=== PATIENT | female | born 1950 | race Caucasian/White ===

== ENCOUNTER 2020-07-04 11:07 | Outpatient (REF) | payer MEDICARE, MEDICAID, SELFPAY ==
--- NOTE | 2020-07-04 11:10 | CT_ITS ---
EXAMINATION: CT CHEST WITHOUT CONTRAST CLINICAL INFORMATION: Follow-up pulmonary nodule COMPARISON: Previous chest CT April 2019 TECHNIQUE: Multidetector volumetric CT imaging of the chest was done. Axial MIP volume rendering provided. Sagittal and coronal reformatted images were obtained. This CT examination was performed using dose optimization techniques as appropriate, variously including the following: *Automated exposure control *Adjustment of mA and/or kV according to patient size (this includes techniques or standardized protocols for targeted exams where dose is matched to indication/reason for exam; i.e. extremities or head) *Use of iterative reconstruction technique DLP: 178 mGy-cm FINDINGS: LUNGS: There is new large masslike area of dense consolidation with air bronchograms seen in the superior segment of the right upper lobe. This abuts the major fissure and there is slight retraction of the fissure. Difficult to measure due to irregular shape and measures approximately 5 x 3 x 4 cm. There is surrounding groundglass attenuation and semisolid pulmonary nodules. This is new from previous exam April 2019. Given rapid appearance, an infectious or inflammatory process over neoplastic process is favored. There is evidence of emphysema. There are areas of increased peribronchial attenuation is suggestive of airways disease. There is mild focal bronchiectasis seen in the right middle and bilateral lower lobes. There are diffuse scattered areas of increased groundglass attenuation and peribronchial attenuation. There are several solid pulmonary nodules that are stable. There is a 2 mm right apical nodule axial image 81 series 4 that is stable. There is a 6 mm peripheral right lower lobe nodule axial image 280 series 4 that is stable. There is a peripheral 3 mm solid left lower lobe nodule axial image 3:15 series 4 that is stable. MEDIASTINUM: The heart does not appear enlarged. There is moderate coronary artery calcification. There is no pericardial effusion. There are no enlarged hilar or mediastinal lymph nodes. The thoracic aorta is heavily calcified.. PLEURA: There is no pleural effusion. No pleural mass or thickening. AXILLA: No lymphadenopathy. UPPER ABDOMEN: There is low-attenuation seen in the gallbladder questionable for cholesterol gallstones. There is evidence of atherosclerotic disease of the aorta. OSSEOUS STRUCTURES: There are degenerative changes of the spine. CT/CT chest wo con IMPRESSION: New large area of masslike density consolidation with air bronchograms, surrounding groundglass attenuation and smaller satellite nodular opacities in the right lower lobe. Innumerable scattered areas of focal bronchiectasis, some bronchial wall thickening and surrounding groundglass attenuation throughout the lungs. Infectious, inflammatory and neoplastic processes should be considered. Given associated bronchiolectasis, BOOP or organizing cryptogenic pneumonia in particular should be considered. Several small stable solid pulmonary nodules from 2019, largest measuring 6 mm in the right lower lobe. Severe atherosclerotic disease and coronary artery calcification. Probable gallstones.
== END 2020-07-04 11:08 | disposition home or self-care (01) ==
LOC: HO.CT 11:07
PROVIDERS: PCP Internal Medicine; Visit Provider Hospitalist
DX: R91.1 Solitary pulmonary nodule (principal)
CPT/HCPCS: 71250

== ENCOUNTER 2020-07-05 09:58 | Outpatient (REF) | payer MEDICARE, MEDICAID, SELFPAY ==
[2020-07-05 11:51] LABS: MANUAL DIFF FLAG NO
[2020-07-05 11:58] LABS: Basophils Absolute Auto 0.1 X10*3/uL (0.0-0.2); Basophils Percent Auto 0.4 % (0-2); Eosinophils Absolute Auto 0.6 X10*3/uL (0.0-0.4); Hematocrit 39.4 % (37-47); Hemoglobin 12.2 g/dl (12.0-16.0); Imm Gran Abs Auto 0.14 X10*3/uL (0.00-0.03); Imm Gran Pct Auto 1.2 % (0.0-0.4); Lymphocytes Absolute Auto 2.4 X10*3/uL (1.2-4.9); Lymphocytes Percent Auto 21.1 % (20-40); Mean Corpuscular Hemoglobin 28.8 pg (27.0-33.0); Mean Corpuscular Volume 93.1 fL (80-98); Mean Platelet Volume 9.2 fL (9.4-12.3); Monocytes Absolute Auto 1.2 X10*3/uL (0.1-1.2); Monocytes Percent Auto 10.6 % (2-11); Neutrophils Percent Auto 61.7 % (45-73); Platelet Count 284 X10*3/uL (160-400); Red Blood Count 4.23 X10*6/uL (4.20-5.50); Red Cell Distribution Width 13.9 % (11.0-16.0); White Blood Count 11.3 X10*3/uL (4.8-10.8)
[2020-07-05 13:20] LABS: Erythrocyte Sedimentation Rate 40 MM/HR (0-20)
[2020-07-05 13:38] LABS: SARS COV2 IgG Negative (Negative)
[2020-07-06 21:22] LABS: Anti Nuclear Antibody Screen POSITIVE (NEGATIVE)
[2020-07-06 22:53] LABS: Cyclic Citrullinated Peptide <16 UNITS
[2020-07-08 11:27] LABS: Immunoglobulin G Subclass 1 327 mg/dL (382-929); Immunoglobulin G Subclass 2 230 mg/dL (241-700); Immunoglobulin G Subclass 3 70 mg/dL (22-178); Immunoglobulin G Subclass 4 6.7 mg/dL (4-86); Immunoglobulin G Total 626 mg/dL (600-1540)
== END 2020-07-05 09:59 | disposition home or self-care (01) ==
LOC: HO.LAB 09:58
PROVIDERS: PCP Internal Medicine; Visit Provider Hospitalist
DX: F51.01 Primary insomnia (principal); J96.11 Chronic respiratory failure with hypoxia; J18.9 Pneumonia, unspecified organism; J44.9 Chronic obstructive pulmonary disease, unspecified; R91.8 Other nonspecific abnormal finding of lung field; G47.00 Insomnia, unspecified; J43.2 Centrilobular emphysema; Z79.899 Other long term (current) drug therapy; Z87.891 Personal history of nicotine dependence; Z99.81 Dependence on supplemental oxygen; Z20.822 Contact with and (suspected) exposure to COVID-19
CPT/HCPCS: 36415; 82784; 85025; 85652; 86038; 86039; 86200; 86769; 99212

== ENCOUNTER 2020-07-05 21:39 | Emergency (ER) | payer MEDICARE, MEDICAID, SELFPAY ==
[2020-07-05 21:48] VITALS: BP 158/76; PULSE 88; RESP 18; TEMP 36.8; O2SAT 97; BMI 29.6
[2020-07-05 22:00] VITALS: RESP 18
--- NOTE | 2020-07-05 22:20 | ED_ITS ---
HPI - General Adult General Chief complaint: General Medical Stated complaint: flank pain Time Seen by Provider: 07/05/20 22:01 Source: patient Mode of arrival: ambulatory Limitations: no limitations History of Present Illness HPI narrative: Patient presents to ED for right flank pain radiating down to right groin with dysuria and hematuria which began around 18:30 tonight. Patient states no fever, chills, any recent trauma to her abdomen or flank area. Related Data Home Medications Medication Instructions Recorded Confirmed albuterol sulfate 90 mcg/actuation 2 puff INHALATION Q6H PRN 04/26/20 07/05/20 aerosol inhaler albuterol sulfate 90 mcg/actuation INHALATION 04/26/20 07/05/20 aerosol inhaler atorvastatin 40 mg tablet 40 mg PO DAILY 04/26/20 07/05/20 bisoprolol fumarate 5 mg tablet 5 mg PO DAILY 04/26/20 07/05/20 cholecalciferol (vitamin D3) 25 25 mcg PO DAILY 04/26/20 07/05/20 mcg (1,000 unit) capsule fluticasone propionate 230 INHALATION 04/26/20 07/05/20 mcg-salmeterol 21 mcg/actuation HFA inhaler fluticasone propionate 50 2 spray INTRANASAL DAILY 04/26/20 07/05/20 mcg/actuation nasal spray,suspension lisinopril 40 mg tablet 40 mg PO DAILY 04/26/20 07/05/20 multivitamin 1 tab PO DAILY 04/26/20 07/05/20 zolpidem 10 mg tablet 10 mg PO BEDTIME PRN 04/26/20 07/05/20 Previous Rx's Medication Instructions Recorded tiotropium bromide 18 mcg capsule 1 cap INHALATION DAILY #30 inh 04/13/20 with inhalation device tiotropium bromide 2.5 2 puff INHALATION DAILY 30 Days #4 05/09/20 mcg/actuation mist for inhalation g cefpodoxime 200 mg PO Q12H #20 tab 07/06/20 ketorolac 10 mg PO TID 5 Days #15 tab 07/06/20 tamsulosin [Flomax] 0.4 mg PO DAILY #14 cap 07/06/20 Allergies Allergy/AdvReac Type Severity Reaction Status Date / Time morphine [MORPHINE] Allergy Severe DIFFICULTY Verified 07/05/20 21:52 BREATHING Review of Systems Review of Systems: Yes all other systems are reviewed and are negative Constitutional: Constitutional: Reports as per HPI and Reports no additional constitutional complaints Eyes: Eyes: Reports as per HPI and Reports no additional eye complaints ENT: Reports system reviewed and no additional complaints, except as documented and Reports as per HPI Cardiovascular: Cardiovascular: Reports as per HPI and Reports no additional cardiovascular complaints Respiratory: Respiratory: Reports as per HPI and Reports no additional respiratory complaints Gastrointestinal: Gastrointestinal: Reports as per HPI, Reports no additional gastrointestinal complaints, Reports abdominal pain and Reports nausea Genitourinary: Genitourinary: Reports no additional female genitourinary complaints, Reports as per HPI, Reports hematuria and Reports dysuria Musculoskeletal: Musculoskeletal: Reports no additional musculoskeletal complaints and Reports as per HPI Neurologic: Reports system reviewed and no additional complaints, except as documented and Reports as per HPI Psychiatric: Psychiatric: Reports no additional psychiatric complaints and Reports as per HPI [facility] Past Medical History Medical History (Updated 07/06/20 @ 01:21 by BARRON Gunn) CAD (coronary artery disease) Centrilobular emphysema Chronic respiratory failure Insomnia Lung mass Pneumonia Pulmonary nodules TIA (transient ischemic attack) Family History Family History (Updated 07/05/20 @ 21:54 by Villa Booker MD) Other HTN (hypertension) Social History Social History (Updated 04/26/20 @ 11:12 by Stephie Squires MA) Alcohol intake: never Smoking Status: Never smoker Tobacco Type: Cigarette Years Smoked: 30 years Smoked in Last 30 Days: No Use of substances other than those prescribed or required for medical reasons: No Advance Directives: No Physical Exam Vital Signs: Vital Signs: Last Vital Signs Temp 97.1 F 07/06/20 01:08 Pulse 82 07/06/20 01:08 Resp 20 07/06/20 01:08 BP 126/75 07/06/20 01:08 Pulse Ox 95 07/06/20 01:08 Body Mass Index 29.6 Const: General: cooperative, healthy appearing, comfortable, no acute dis tress, well developed, alert and awake Orientation/consciousness: patient oriented x3 HENMT: Head: Yes normal to inspection, Yes No palpable skull fracture present, Yes normocephalic, Yes atraumatic and No abrasion Eyes: General: appearance normal, both eyes and all related structures Neck: Neck: Yes normal visual inspection, Yes full ROM, Yes no lymphadenopathy, Yes no meningeal signs, Yes trachea midline, Yes supple and No tender Chest: Chest palpation & inspection: normal inspection of the chest and normal palpation of entire chest wall Resp: Effort & Inspection: normal respiratory effort and able to speak in complete sentences Auscultation: clear to auscultation bilaterally Cardio: Jugular venous distension: no JVD Heart sounds: S1 normal heart sound present and S2 normal heart sound present GI: Inspection: Yes normal to inspection and No abdominal wall ecchymosis Palpation (GI): Soft to palpation, not firm, Tenderness to palpation present (GI) in the RLQ and suprapubicly, no guarding and not rigid : General: Yes CVA tenderness (Right flank) Back/Spine/Pelvis: Back: CVA tenderness (Right flank) Skin: General skin exam: no rashes or lesions noted and elasticity normal Neuro: General: patient oriented x3, no meningeal signs and CN's II-XI intact bilaterally Cranial nerves: Yes CN's II-XII intact bilaterally Extrem: General: Yes normal to inspection and Yes full ROM Psych: Appearance: grossly normal, well kempt and not disheveled Course Course Course Narrative: History physical exam indicate kidney stones. Will draw labs and send patient for abdominal CT scan. Reevaluation(s) Reevaluation #1: Patient given fluids. Abdominal CT scan shows kidney stone 3 mm on UVJ. Urine shows UTI. Kidney function normal. Patient given Flomax and Toradol. Patient informed to follow-up with urology. Time: 01:18 Medical Decision Making MDM Narrative Medical decision making narrative: Kidney stones Lab Data Result diagrams: 07/06/20 00:24 07/06/20 00:23 Labs: Lab Results 07/05/20 07/06/20 07/06/20 Range/Units 22:45 00:23 00:23 WBC (4.8-10.8) X10*3/uL RBC (4.20-5.50) X10*6/uL Hgb (12.0-16.0) g/dl Hct (37-47) % MCV (80-98) fL MCH (27.0-33.0) pg MCHC (31.0-35.0) g/dl RDW (11.0-16.0) % Plt Count (160-400) X10*3/uL MPV (9.4-12.3) fL Immature Gran % (Auto) (0.0-0.4) % Neut % (Auto) (45-73) % Lymph % (Auto) (20-40) % [place] % (Auto) (2-11) % Eos % (Auto) (0-4) % Baso % (Auto) (0-2) % Lymph # (Auto) (1.2-4.9) X10*3/uL [place] # (Auto) (0.1-1.2) X10*3/uL Eos # (Auto) (0.0-0.4) X10*3/uL Baso # (Auto) (0.0-0.2) X10*3/uL Abs Immat Gran (auto) (0.00-0.03) X10*3/uL Absolute Neuts (auto) (2.0-8.3) X10*3/uL Absolute Nucleated RBC (0.0-0.012) X10*3/uL Nucleated RBC % (auto) (0.0-0.2) /100WBC PT 13.4 H (10.8-13.0) SEC INR 1.1 (0.9-1.1) APTT 32.3 (24.1-38.0) SEC Sodium 140 (135-145) mmol/L Potassium 4.6 (3.3-5.1) mmol/l Chloride 101 (96-108) mmol/L Carbon Dioxide 30 H (22-29) mmol/L Anion Gap 14 (12-20) BUN 23 H (9-16) mg/dL Creatinine 0.76 (0.5-1.4) mg/dL Estim Creat Clear Calc 72.7 Estimated GFR > 60 Random Glucose 158 H (60-115) mg/dL Calcium 8.7 (8.4-10.2) mg/dL Total Bilirubin 0.3 (0.0-1.0) mg/dL Direct Bilirubin < 0.2 (0.0-0.5) mg/dL AST 5 (5-31) U/L ALT 12 (0-31) U/L Alkaline Phosphatase 88 (39-117) U/L Total Protein 6.2 L (6.5-8.0) g/dL Albumin 3.8 (3.5-5.0) g/dL Lipase 13 (8-78) U/L Urine Color EVELYN Urine Appearance TURBID Urine pH 6.5 (5.0-8.0) Ur Specific [place] >= 1.030 H (1.005-1.025) Urine Protein 3+ H (NEG-TRACE) MG/DL Urine Glucose (UA) 100 H (NEG) MG/DL Urine Ketones 15 (NEG) MG/DL Urine Blood 3+ H (NEG) Urine Nitrite POS H (NEG) Ur Leukocyte Esterase TRACE H (NEG) Urine RBC TNTC H (0) /HPF Urine WBC 0 (0-4) /HPF Ur Squamous Epith Cells NONE /LPF Calcium Oxalate Crystal 1+ /LPF Urine Bacteria 3+ /LPF 07/06/20 Range/Units 00:24 WBC 12.3 H (4.8-10.8) X10*3/uL RBC 4.12 L (4.20-5.50) X10*6/uL Hgb 11.9 L (12.0-16.0) g/dl Hct 38.4 (37-47) % MCV 93.2 (80-98) fL MCH 28.9 (27.0-33.0) pg MCHC 31.0 (31.0-35.0) g/dl RDW 13.8 (11.0-16.0) % Plt Count 257 (160-400) X10*3/uL MPV 9.1 L (9.4-12.3) fL Immature Gran % (Auto) 0.6 H (0.0-0.4) % Neut % (Auto) 73.6 H (45-73) % Lymph % (Auto) 14.3 L (20-40) % [place] % (Auto) 9.1 (2-11) % Eos % (Auto) 2.1 (0-4) % Baso % (Auto) 0.3 (0-2) % Lymph # (Auto) 1.8 (1.2-4.9) X10*3/uL [place] # (Auto) 1.1 (0.1-1.2) X10*3/uL Eos # (Auto) 0.3 (0.0-0.4) X10*3/uL Baso # (Auto) 0.0 (0.0-0.2) X10*3/uL Abs Immat Gran (auto) 0.08 H (0.00-0.03) X10*3/uL Absolute Neuts (auto) 9.1 H (2.0-8.3) X10*3/uL Absolute Nucleated RBC 0.000 (0.0-0.012) X10*3/uL Nucleated RBC % (auto) 0.0 (0.0-0.2) /100WBC PT (10.8-13.0) SEC INR (0.9-1.1) APTT (24.1-38.0) SEC Sodium (135-145) mmol/L Potassium (3.3-5.1) mmol/l Chloride (96-108) mmol/L Carbon Dioxide (22-29) mmol/L Anion Gap (12-20) BUN (9-16) mg/dL Creatinine (0.5-1.4) mg/dL Estim Creat Clear Calc Estimated GFR Random Glucose (60-115) mg/dL Calcium (8.4-10.2) mg/dL Total Bilirubin (0.0-1.0) mg/dL Direct Bilirubin (0.0-0.5) mg/dL AST (5-31) U/L ALT (0-31) U/L Alkaline Phosphatase (39-117) U/L Total Protein (6.5-8.0) g/dL Albumin (3.5-5.0) g/dL Lipase (8-78) U/L Urine Color Urine Appearance Urine pH (5.0-8.0) Ur Specific [place] (1.005-1.025) Urine Protein (NEG-TRACE) MG/DL Urine Glucose (UA) (NEG) MG/DL Urine Ketones (NEG) MG/DL Urine Blood (NEG) Urine Nitrite (NEG) Ur Leukocyte Esterase (NEG) Urine RBC (0) /HPF Urine WBC (0-4) /HPF Ur Squamous Epith Cells /LPF Calcium Oxalate Crystal /LPF Urine Bacteria /LPF Discharge Plan Discharge Clinical Impression: Ureteral calculi Patient Disposition: Home, Self-Care Instructions: Ureteral Stones (ED) Additional Instructions: Return to the ED immediately for worsening abdominal pain, fever, chills, inability tolerate solid food/liquid, or any other concerning symptoms. Prescriptions: New tamsulosin [Flomax] 0.4 mg capsule 0.4 mg PO DAILY Qty: 14 RF: 0 cefpodoxime 200 mg tablet 200 mg PO Q12H Qty: 20 RF: 0 ketorolac 10 mg tablet 10 mg PO TID 5 Days Qty: 15 RF: 0 No Action Spiriva with HandiHaler 18 mcg capsule, w/inhalation device 1 cap inhalation DAILY Qty: 30 RF: 3 Spiriva Respimat 2.5 mcg/actuation mist 2 puff inhalation DAILY 30 Days Qty: 4 RF: 11 albuterol sulfate 90 mcg/actuation HFA aerosol inhaler inhalation RF: 0 lisinopril 40 mg tablet 40 mg PO DAILY RF: 0 Advair HFA 230-21 mcg/actuation HFA aerosol inhaler inhalation RF: 0 bisoprolol fumarate 5 mg tablet 5 mg PO DAILY RF: 0 zolpidem 10 mg tablet 10 mg PO BEDTIME PRNRF: 0 atorvastatin 40 mg tablet 40 mg PO DAILY RF: 0 fluticasone propionate 50 mcg/actuation spray,suspension 2 spray intranasal DAILY RF: 0 albuterol sulfate [Ventolin HFA] 90 mcg/actuation HFA aerosol inhaler 2 puff inhalation Q6H PRNRF: 0 cholecalciferol (vitamin D3) 25 mcg (1,000 unit) capsule 25 mcg PO DAILY RF: 0 multivitamin Tablet 1 tab PO DAILY RF: 0 Referrals: Gama Sequeira MD [Physician] - 2 days (3 mm UVJ stone with mild hydronephrosis.) Discharge Date/Time: 07/06/20 01:45 Print Language: Kinyarwanda
[2020-07-05] MEDS: 0.9 % Sodium Chloride 1,000 ML 999 ML IV (22:50)
[2020-07-05 22:54] LABS: Glucose Urine UA 100 MG/DL (NEG); Leukocyte Esterase Urine TRACE (NEG); Nitrite Urine POS (NEG); PH 6.5 (5.0-8.0); Specific Gravity - Urine >= 1.030 (1.005-1.025); Urine Blood 3+ (NEG); Urine Ketones 15 MG/DL (NEG); Urine Protein 3+ MG/DL (NEG-TRACE)
[2020-07-05 22:55] LABS: Appearance Urine TURBID; Color Urine AMBER
[2020-07-05 23:01] LABS: Bacteria Urine 3+ /LPF; Calcium Oxalate Crystals Urine 1+ /LPF; RBC Urine TNTC /HPF (0); WBC Urine 0 /HPF (0-4)
--- NOTE | 2020-07-05 23:10 | CT_ITS ---
EXAMINATION: CT ABDOMEN AND PELVIS WITHOUT CONTRAST CLINICAL INFORMATION: Right flank pain, question kidney stones COMPARISON: None TECHNIQUE: Multidetector volumetric imaging was performed from the superior aspect of the liver through the pubic symphysis. Sagittal and coronal reformatted images were obtained on the technologist's workstation. This CT examination was performed using dose optimization techniques as appropriate, variously including the following: *Automated exposure control *Adjustment of mA and/or kV according to patient size (this includes techniques or standardized protocols for targeted exams where dose is matched to indication/reason for exam; i.e. extremities or head) *Use of iterative reconstruction technique DLP: 593 mGy-cm FINDINGS: LUNG BASES: Redemonstrated mild opacities of the right lower lobe and tiny left lower lobe peripheral nodule, also seen on yesterday's chest CT. LIVER, GALLBLADDER, AND BILIARY TREE: The liver is normal in size, shape, and attenuation. No focal hepatic lesion or biliary ductal dilatation is present. Cholelithiasis is noted. PANCREAS: Unremarkable. SPLEEN: Unremarkable. ADRENAL GLANDS: Unremarkable. KIDNEYS AND URETERS: There is a 3 mm calculus at the right ureterovesicular junction with mild hydroureteronephrosis. There is a 3 mm calculus in the mid right kidney. Punctate calculus is present in the upper left kidney. No left-sided hydronephrosis. BLADDER: Collapsed and not well evaluated. GASTROINTESTINAL TRACT: Colonic diverticulosis is noted. The small and large bowel are otherwise unremarkable without evidence of obstruction or pericolonic inflammatory change. The appendix is unremarkable. No free fluid or free air is seen. ABDOMINAL WALL: No significant hernia is appreciated. LYMPH NODES: Normal. VASCULAR: There is atherosclerotic calcification along the aorta and iliac arteries. PELVIC VISCERA: Unremarkable. OSSEOUS STRUCTURES: Degenerative changes are noted in the spine. CT/CT abdomen pelvis wo con IMPRESSION: 1. Right ureterovesicular junction calculus measuring 3 mm with mild hydroureteronephrosis. 2. Small bilateral renal calculi. 3. Cholelithiasis.
--- NOTE | 2020-07-05 23:53 | PC.NURSE ---
AMBULATED TO BATHROOM WITH STEADY GAIT.
[2020-07-06 00:28] LABS: Basophils Percent Auto 0.3 % (0-2); Eosinophils Absolute Auto 0.3 X10*3/uL (0.0-0.4); Eosinophils Percent Auto 2.1 % (0-4); Hematocrit 38.4 % (37-47); Hemoglobin 11.9 g/dl (12.0-16.0); Imm Gran Abs Auto 0.08 X10*3/uL (0.00-0.03); Imm Gran Pct Auto 0.6 % (0.0-0.4); Lymphocytes Absolute Auto 1.8 X10*3/uL (1.2-4.9); Lymphocytes Percent Auto 14.3 % (20-40); MANUAL DIFF FLAG NO; Mean Corpuscular Hemoglobin 28.9 pg (27.0-33.0); Mean Corpuscular Volume 93.2 fL (80-98); Mean Platelet Volume 9.1 fL (9.4-12.3); Monocytes Absolute Auto 1.1 X10*3/uL (0.1-1.2); Monocytes Percent Auto 9.1 % (2-11); Neutrophils Absolute Auto 9.1 X10*3/uL (2.0-8.3); Neutrophils Percent Auto 73.6 % (45-73); Platelet Count 257 X10*3/uL (160-400); Red Blood Count 4.12 X10*6/uL (4.20-5.50); Red Cell Distribution Width 13.8 % (11.0-16.0); White Blood Count 12.3 X10*3/uL (4.8-10.8)
[2020-07-06 00:34] LABS: INTERNATIONAL NORM RATIO 1.1 (0.9-1.1); Prothrombin Time 13.4 SEC (10.8-13.0)
[2020-07-06 00:37] LABS: Partial Thromboplastin Time 32.3 SEC (24.1-38.0)
[2020-07-06 00:55] LABS: Alanine Aminotransferase 12 U/L (0-31); Albumin Level 3.8 g/dL (3.5-5.0); Alkaline Phosphatase 88 U/L (39-117); Anion Gap 14 (12-20); Aspartate Amino Transferase 5 U/L (5-31); Bilirubin Direct < 0.2 mg/dL (0.0-0.5); Bilirubin Total 0.3 mg/dL (0.0-1.0); Blood Urea Nitrogen 23 mg/dL (9-16); Calcium 8.7 mg/dL (8.4-10.2); Carbon Dioxide 30 mmol/L (22-29); Chloride 101 mmol/L (96-108); Creatinine Clr Calc Pharmacy 72.7; Estimated Glomerular Filt Rate > 60; Glucose Random 158 mg/dL (60-115); Lipase 13 U/L (8-78); Potassium 4.6 mmol/l (3.3-5.1); Sodium 140 mmol/L (135-145); Total Protein 6.2 g/dL (6.5-8.0)
[2020-07-06] MEDS: Ketorolac Tromethamine 15 MG/ML VIAL IVPUSH (01:03)
[2020-07-06] MEDS: Tamsulosin HCL 0.4 MG CAPSULE PO (01:03)
[2020-07-06 01:08] VITALS: BP 126/75; PULSE 82; RESP 20; TEMP 36.2; O2SAT 95
== END 2020-07-06 01:45 | disposition home or self-care (01) ==
PROVIDERS: Physician Assistant; Emergency Provider Student in an Organized Health Care Education/Training Program
DX: N13.2 Hydronephrosis with renal and ureteral calculous obstruction (principal); Z86.73 Personal history of transient ischemic attack (TIA), and cerebral infarction without residual deficits; F17.210 Nicotine dependence, cigarettes, uncomplicated
CPT/HCPCS: 36415; 74176; 80053; 80076; 81001; 82248; 83690; 85025; 85610; 85730; 87086; 96361; 96374; 99284; J1885

== ENCOUNTER → 2021-01-25 08:34 | Outpatient (BNVA) | payer MEDICARE, MEDICAID, SELFPAY | PROVIDERS: PCP Internal Medicine; Visit Provider Hospitalist | DX: J96.11 Chronic respiratory failure with hypoxia (principal); J43.2 Centrilobular emphysema; J18.9 Pneumonia, unspecified organism; R91.8 Other nonspecific abnormal finding of lung field | CPT/HCPCS: 99212 ==

== ENCOUNTER → 2021-04-24 09:55 | Outpatient (BNVA) | payer MEDICARE, MEDICAID, SELFPAY | PROVIDERS: PCP Internal Medicine; Visit Provider Hospitalist | DX: R91.8 Other nonspecific abnormal finding of lung field (principal); J96.11 Chronic respiratory failure with hypoxia; J43.2 Centrilobular emphysema; J18.9 Pneumonia, unspecified organism | CPT/HCPCS: 99212 ==

== ENCOUNTER → 2021-08-23 09:12 | Outpatient (BNVA) | payer MEDICARE, MEDICAID, SELFPAY | PROVIDERS: PCP Internal Medicine; Visit Provider Hospitalist | DX: R91.8 Other nonspecific abnormal finding of lung field (principal); J96.11 Chronic respiratory failure with hypoxia; J43.2 Centrilobular emphysema; J18.9 Pneumonia, unspecified organism; K21.9 Gastro-esophageal reflux disease without esophagitis; Z99.81 Dependence on supplemental oxygen | CPT/HCPCS: 99212 ==

== ENCOUNTER → 2021-12-19 10:35 | Outpatient (BNVA) | payer MEDICARE, MEDICAID, SELFPAY | PROVIDERS: PCP Internal Medicine; Visit Provider Hospitalist | DX: J43.2 Centrilobular emphysema (principal); J96.11 Chronic respiratory failure with hypoxia; R91.8 Other nonspecific abnormal finding of lung field; K21.9 Gastro-esophageal reflux disease without esophagitis; Z79.899 Other long term (current) drug therapy; Z99.81 Dependence on supplemental oxygen | CPT/HCPCS: 99212 ==

== ENCOUNTER 2022-01-15 08:53 | Outpatient (REF) | payer MEDICARE, MEDICAID, SELFPAY ==
--- NOTE | ~2022-01-15 | CT_ITS ---
EXAMINATION: CT CHEST WITHOUT CONTRAST CLINICAL INFORMATION: Solitary pulmonary nodule COMPARISON: Chest CT 07/04/2020 TECHNIQUE: Multidetector volumetric CT imaging of the chest was done. Axial MIP volume rendering provided. Sagittal and coronal reformatted images were obtained. This CT examination was performed using dose optimization techniques as appropriate, variously including the following: *Automated exposure control *Adjustment of mA and/or kV according to patient size (this includes techniques or standardized protocols for targeted exams where dose is matched to indication/reason for exam; i.e. extremities or head) *Use of iterative reconstruction technique DLP: 220 mGy-cm FINDINGS: The heart is normal in size. Coronary artery calcifications are present. There is no pericardial effusion. Normal caliber thoracic aorta. No gross mediastinal lymphadenopathy. No pathologically enlarged axillary lymph nodes. Central airways are patent. The lungs are adequately aerated. Mild emphysematous changes are noted. There has been complete interval resolution of masslike consolidation within the right lower lobe. A new small area of masslike consolidation is noted at the right lung base which measures approximately 2.4 x 1.8 cm (image 44/68, series 4). There is also a new 9 mm patchy opacity of the left lower lobe (image 45). Some mild subpleural opacities within the lingula likely represent atelectasis. A few previously visualized pulmonary nodules appear stable, for example an 8 mm right lower lobe pulmonary nodule (image 254/561, series 5). There is a cluster of new pulmonary nodules/nodular densities within the posterior lateral right lower lobe, largest nodular density measuring approximately 1.3 cm (image 311). Visualized portions of the upper abdomen are grossly unremarkable. Diffuse osteopenia. Moderate degenerative changes of the spine. CT/CT chest wo con IMPRESSION: -Complete interval resolution of masslike consolidation within the right lower lobe. - Interval development of a small area of masslike consolidation at the right lung base with a subcentimeter patchy opacity of the left lower lobe which is also new. There is also a cluster of new pulmonary nodules/nodular densities within the posterior lateral right lower lobe. Findings are nonspecific, however, an infectious or inflammatory etiology is presumed. Close attention on follow-up imaging is recommended. -Previously visualized pulmonary nodules are stable. Fleischner guidelines were followed.
== END 2022-01-15 08:54 | disposition home or self-care (01) ==
LOC: HO.CT 08:53
PROVIDERS: PCP Internal Medicine; Visit Provider Hospitalist
DX: R91.1 Solitary pulmonary nodule (principal); R91.8 Other nonspecific abnormal finding of lung field
CPT/HCPCS: 71250

== ENCOUNTER → 2022-02-21 09:18 | Outpatient (BNVA) | payer MEDICARE, MEDICAID, SELFPAY | PROVIDERS: PCP Internal Medicine; Visit Provider Hospitalist | DX: J43.2 Centrilobular emphysema (principal); J96.11 Chronic respiratory failure with hypoxia; R91.8 Other nonspecific abnormal finding of lung field; K21.9 Gastro-esophageal reflux disease without esophagitis; Z99.81 Dependence on supplemental oxygen; Z79.899 Other long term (current) drug therapy | CPT/HCPCS: Q3014 ==

== ENCOUNTER 2022-02-27 14:03 | Outpatient (REF) | payer MEDICARE, MEDICAID, SELFPAY ==
--- NOTE | ~2022-02-27 | PE_ITS ---
EXAMINATION: Fluorine-18 FDG PET/CT Scan CLINICAL INDICATION: Initial treatment management.. Solitary pulmonary nodule. PROCEDURE: 58 minutes following the intravenous administration of 14.2 mCi of fluorine 18 FDG, images from the base of the skull to the mid thighs were obtained using a combined PET/CT scanner with CT scan based attenuation correction. No oral contrast was administered. No intravenous contrast was administered. Transverse, coronal, sagittal, and volume reconstruction projections were obtained. The patient's blood glucose as determined by a finger stick, was 96 mg/dl immediately prior to injection. Total CT exam dose-length product 800.08 mGy-cm * These CT images were obtained using dose optimization techniques as appropriate, variously including the following: Automated exposure control * Adjustment of mA and/or kV according to patient size (this includes techniques or standardized protocols for targeted exams where dose is matched to indication/reason for exam; i.e. extremities or head) * Use of iterative reconstruction technique COMPARISON: No previous PET/CT scan is available for comparison. CT scans of the chest dated 01/15/2022 and of the abdomen and pelvis dated 07/05/2020 are available for comparison. FINDINGS: (Slice numbers described in this report are numbered superiorly to inferiorly with slice #1 in the head) NECK AND VISUALIZED HEAD: No foci of abnormal FDG activity are noted. The distribution of FDG activity is physiological. There is no cervical lymphadenopathy. There is mild mucosal thickening posteriorly in the right maxillary sinus with no associated abnormal FDG activity. THORAX: There is been almost complete resolution of the masslike consolidation at the right lung base visualized on the 01/15/[address] scan. There is now only a small opacity which is subcentimeter in size on the axial images, measuring approximately 0.7 cm in largest transverse dimension, slice 88/223 corresponding to a vertically linear opacity as visualized on the sagittal images measuring approximately 3.2 cm cephalocaudad and likely a focus of atelectasis or scarring. This shows no associated abnormal FDG activity. More superiorly there is a cluster of nodular opacities in the posterolateral aspect of the right lower lobe, the largest measuring 0.7 x 0.4 cm in largest transverse dimensions, too small to be characterized on the FDG PET images. These are similar in appearance to 01/15/2022. There is a 0.8 x 0.4 cm slice 78/223, anterolateral right middle lobe nodular opacity, also too small to characterize on the FDG PET images which was not present on 01/15/2022. There there is another new 0.5 cm medial left lower lobe nodule, too small to characterize on the FDG PET images, slice 71/223. No additional suspicious pulmonary nodules are visualized. There are no foci of abnormal FDG activity in the chest. There is no mediastinal, supraclavicular, or axillary lymphadenopathy. There is no pleural pericardial fluid, or pneumothorax. ABDOMEN AND PELVIS: There are no foci of abnormal FDG activity in the abdomen or pelvis. There is a small focus of activity in the genitalia which is likely due to some urinary activity and no corresponding CT abnormality is present. There is mild FDG activity throughout the gastrointestinal tract without a suspicious focal component. There is diverticulosis without evidence of diverticulitis. The hollow viscera are otherwise unremarkable. The liver, gallbladder, spleen and adrenal glands and pancreas are unremarkable. There is a 0.3 cm calculus in the mid right kidney, slice 317/583, not significantly changed from the CT scan of the abdomen and pelvis dated 07/05/2020. A right ureterovesicular junction 0.3 cm calculus visualized on that prior study is not present on the current study. The kidneys and urinary bladder otherwise unremarkable. The pelvic organs are unremarkable. MUSCULOSKELETAL: No foci of abnormal FDG activity are present in the osseous structures. Some residual radiopharmaceutical at the injection site in the left hand is noted. There are degenerative changes in the spine but no suspicious sclerotic or lytic lesions are visualized. VASCULAR: Diffuse vascular calcifications including coronary are noted. PET/PET CT fusion skull to thigh IMPRESSION: 1. There is a mild change in the appearance of opacities in the lungs with almost complete resolution of a right lower lobe opacity visualized on the 01/15/[address] then, as described above. A cluster of nodular opacities since in the right lower lobe appears stable and are too small to be characterized on the FDG PET images. New subcentimeter nodular opacities have developed in the right middle lobe and left lower lobe since 01/15/2022, both too small to be characterized on the FDG PET images, but the development over such a short interval suggests these are likely inflammatory foci and not strongly suspicious for malignancy. Continued monitoring of these with diagnostic CT imaging of the chest in approximately 6 months is recommended. 2. Nephrolithiasis. 3. Diffuse vascular calcifications including coronary.
== END 2022-02-27 14:04 | disposition home or self-care (01) ==
LOC: HO.PET 14:03
PROVIDERS: Visit Provider Hospitalist
DX: Z13.89 Encounter for screening for other disorder (principal)

== ENCOUNTER → 2022-04-24 08:58 | Outpatient (BNVA) | payer MEDICARE, MEDICAID, SELFPAY | PROVIDERS: PCP Internal Medicine; Visit Provider Hospitalist | DX: J43.2 Centrilobular emphysema (principal); R91.8 Other nonspecific abnormal finding of lung field; J96.11 Chronic respiratory failure with hypoxia; K21.9 Gastro-esophageal reflux disease without esophagitis | CPT/HCPCS: 99212 ==

== ENCOUNTER 2022-12-31 10:55 | Outpatient (AMB) | payer MEDICARE, MEDICAID, SELFPAY ==
--- NOTE | 2022-12-31 11:07 | MHC.OFFVIS ---
Intake Vital Signs 12/31/22 11:08 Height 5 ft BMI Reason not done Patient refused/unable BP 110/70 Blood Pressure Location Lt brachial Position Standing Pulse 86 Pulse Source Pulse Oximeter Pulse Oximetry (%) 90 L Oxygen Delivery Method Nasal Cannula Oxygen Flow Rate 4 Intake Visit Reasons: follow up visit Intake Note: pt is here for a follow up and not feeling well, her breathing is not good, and she has a hiatel hernia that is affecting her breathing Note Taker Required: No Allergies morphine [MORPHINE] Allergy (Severe, Verified 04/24/22 09:07) DIFFICULTY BREATHING HPI HPI Comments History of Present Illness Details The patient is a 72-year-old woman known COPD pulmonary nodules. She is O2 dependent. Today she came in and her pulse conserving device. We took her off and placed on room air 5 minutes. Quickly her oxygen decreased to 88%. She needs stay on her oxygen supplementation continuously. We will submit this re-certification to her current [employer] company, by [employer]. In meantime she has been followed with the lung cancer screening program. Over the summer 2018 she did have an episode of pneumonia that resulted in a brief hospitalization after failed outpatient therapy. Initially she received doxycycline. Then she was admitted to the hospital normal. Overall she feels a little better this time. The patient also had a CT scan of the chest that we personally reviewed. She appears to have some increased airspace disease and some bronchitis looking airways primarily on the right lung. This is likely residual to her recent infection back in February. In the meantime her pulmonary nodule on the right is measuring about 8 mm in size and appears to have filled in more than before when I compared to her CT scan from July 2018. Therefore, we'll closely follow this nodule and another 3 months. She stated do a CT scan of the chest ruling out pulmonary emboli. The did find a small but enlarging right breast nodule. She will be following up with this. We did look at her older CT scan from 2019 which demons. She did have a recent CT scan of the chest as a follow-up for her last 1 in June 2019 at [facility]. It appeared that she has a new patchy area of consolidation which is masslike in addition to some areas of ground-glass opacities. This is new when compared to her CT scan from [facility]. This is suggestive process possibly of an infectious process versus a noninfectious inflammatory process. Less likely malignancy although is in the differential. The patient is agreeable to undergo blood work and also bronchoscopy. Will try to schedule it as well as possible in order to properly treat with antibiotics as necessary for ongoing lower respiratory infection. 08/23/2021 the patient is here for a pulmonary follow-up visit. Overall the patient continues to be about the same. Complains of dyspnea on exertion. Feels like is getting a little bit worse. She has a hard time performing the activities of daily living. Her family has been very supportive although she feels that she needs additional assistance. She continues use the oxygen with good effect. She does stay active and busy with her neighborhood friends. In the meantime she did have a recent CT scan of the chest personally by me and also reviewed and compared it to the CT scan she had back in December 2020. It appears that the largest nodule that was measuring 7 mm in size slightly decreased in size which is reassuring. However, now she has 2 new nodules. She does have significant coronary artery disease also noted on her CT scan. Will have to repeat the CT scan in a year's time to make sure that all is stable. She had been participating in the lung cancer screening program. It is okay for her to continue with screening program with a CT scan in July 2021. the patient has been having some difficulties with her inhaler. The Spiriva Respimat has not been effective. Is making a cough and she is not able to taking the medicine well. Therefore, I will switch over to Trelegy inhaler daily to see if this provides better adherence to therapy and provides better bronchodilation and hopefully improving her respiratory symptoms. The patient is also having reflux symptoms. She ext understands that the reflux symptoms could be worsening her underlying airway disease. The patient needs to sleep elevated. She can try bed risers or a wedge pillow. But the best option would be to get a hospital bed. 12/19/2021 the patient is here for a hospital follow-up visit. Overall she is feeling better. She was having worsening respiratory symptoms when to normal [facility]. There she was diagnosed with a COPD exacerbation. Part of the workup included a CTA. She ruled out for any pulmonary emboli. However, appear to have a new 2.6 cm pulmonary nodular density in the right lower lobe in addition to a increasing right lower lobe nodular density of measuring 7 mm in size. We did personally review the CAT scan ourselves. We did see the findings. The patient has a significant lung cancer history therefore she is concerned about the possibility of malignant process. based on the size of the nodular density and the other pulmonary nodules noted will be reasonable to request a PET scan. This last CT scan have him back in [id number]. in the meantime the patient continues to have significant dyspnea on exertion. Moderate with with minimal was activity. This is pre limiting. She continues use the oxygen with good effect. She continues with respiratory therapy. She is back on the Trelegy because seems to be working better although she does not like the idea of taking a steroid. 02/21/2022 this is a telehealth visit. The patient continues to at baseline with her breathing. She did respond well to the Trelegy. She will continue using it for now. She also continues with her oxygen as prescribed. We did talk about her recent CT scan done in January 2022. Initially wanted to get a PET scan but it was denied. Therefore it did request a CT scan of the chest which she had and we did review. I personally reviewed the CT scan she had in January here at [place] and also reviewed the CT scan she had at [facility] October 2021. It appears that some of the lung nodules in the right lower lobe about actually progressed in size. Now 1 measuring 1.3 cm which appears to be little spiculated to me. Her airspace disease and consolidation have improved likely secondary to smoldering infectious process. The patient does have a positive family history of lung cancer and she is high risk because of her smoking history. Therefore based on the fact that her pulmonary nodules are getting worse and the fact that she is at risk for any invasive interventions I will request a PET scan at this time again. 04/24/2022 the patient is here for a pulmonary follow-up visit. The patient continues to have similar complaints of shortness of breath and cough. Moderate severity. The oxygen is helpful. She did undergo the PET scan and we did review together. It appears that some of these nodular densities that are concerning appearance are waxing and waning. The large nodular density now has decreasing size in the FDG activity is minimal. Is suggested this is a inflammatory infectious process. The patient does have reflux symptoms and micro aspirations are in differential. Will go ahead and place her on azithromycin as a promotility agent and also to minimize infectious processes. The patient continues with current respiratory regimen. She is having other issues including symptoms from her hiatal hernia and also having shoulder discomfort. She is looking for a pedis that potentially will help her with her rotator cuff injury. 12/31/2022 the patient is here for a pulmonary follow-up visit. The patient is complaining of worsening dyspnea on exertion. Moderate to severe. Hard to do any activities of daily living. She does have a fever help her in her home. She has been using her oxygen. When she is out and about she does use the conserving device and her oxygen today will come in and was about 88% after walking therefore suggesting that the conserving device may not be enough oxygen for her. However, does provide her with better portability. The patient did have a PET scan back in May to follow-up for her abnormal CT scan. We did review together. Appeared that she does have waxing waning pulmonary nodules. The area of concern appear to have resolved. However now that it has been more than 6 months the patient needs to have a repeat CT scan to make sure that her nodular densities not worsening. The patient is high risk for malignancy. In the meantime she is complaining of reflux disease. She has been having a burning sensation in the chest with any activity. It is concerning from a as far as her potential cardiac condition. She does have a cardiology appointment coming up soon with any marketing analytics specialist. Meantime she is taking a baby aspirin. Will go ahead and increase her reflux medications to help her with that but she understands that her symptoms worsen she needs to seek urgent medical advice in case his heart. [facility] Medical History (Updated 12/31/22 @ 23:50 by Villa Booker MD) CAD (coronary artery disease) Centrilobular emphysema Chronic respiratory failure GERD (gastroesophageal reflux disease) Hiatal hernia Insomnia Lung mass Pneumonia Pulmonary nodules TIA (transient ischemic attack) Family History (System 10/31/20 @ 13:55 by Nancie Gagnon) Other HTN (hypertension) Social History (Updated 12/31/22 @ 11:14 by MCKAY Archuleta) Alcohol intake: never Patient Tobacco Use Status: Former Tobacco user Tobacco use type: Cigarette Years Smoked: 30 years Review of Systems Const Denies night sweats ENT Denies change in voice, Denies lip swelling, Denies mouth pain, Reports nasal congestion, Reports nasal discharge and Denies tongue swelling Card Denies chest pain, Reports chest pain at rest and Reports dyspnea on exertion Resp Reports cough, Denies pain on inspiration, Denies pain with cough and Reports dyspnea on exertion GI Denies abdominal pain, Reports dyspepsia and Reports heartburn Musc Reports as per HPI, Reports arthralgias and Reports limited range of motion Neuro Denies Neuro-related abnormal movements Psych Denies no additional complaints Adonis/Lymph Denies easy bleeding and Denies lymphadenopathy Aller/Immun Denies lip swelling and Denies tongue swelling Physical Exam Vital Signs: Last Vital Signs Pulse 86 12/31/22 11:08 BP 110/70 12/31/22 11:08 Pulse Ox 90 L 12/31/22 11:08 Oxygen Delivery Method Nasal Cannula 12/31/22 11:08 Oxygen Flow Rate 4 12/31/22 11:08 Const General: alert Eyes Pupils: Equal, round and reactive pupils present Neck Neck: Yes normal visual inspection, Yes full ROM and Yes no lymphadenopathy Chest Chest palpation & inspection: normal inspection of the chest and tenderness Resp Auscultation: no crackles, no rales, no wheezes and diminished lung sounds Cardio Rate: regular rate Rhythm: regular rhythm Heart sounds: S1 normal heart sound present and S2 normal heart sound present GI Palpation (GI): Soft to palpation and nontender Auscultation: normal bowel sounds General: Yes no CVA tenderness Back/Spine/Pelvis Back: no CVA tenderness Skin General skin exam: rashes and/or lesions noted Neuro Cranial nerves: Yes Equal, round and reactive pupils present Assessment & Plan Assessment & Plan (1) Pulmonary nodules: Comment: RLL nodular density waxing and waning, infectious versus inflammatory Code(s): R91.8 - Other nonspecific abnormal finding of lung field (2) Chronic respiratory failure: Comment: O2 dependant Code(s): J96.10 - Chronic respiratory failure, unspecified whether with hypoxia or hypercapnia Qualifiers: Respiratory failure complication: hypoxia Qualified Code(s): J96.11 - Chronic respiratory failure with hypoxia (3) Centrilobular emphysema: Code(s): J43.2 - Centrilobular emphysema (4) GERD (gastroesophageal reflux disease): Code(s): K21.9 - Gastro-esophageal reflux disease without esophagitis (5) Hiatal hernia: Code(s): K44.9 - Diaphragmatic hernia without obstruction or gangrene Plan continue Trelegy continue oxygen supplementation continue Azithromycin MWF continue reflux diet Increase PPI Lasix x 3 days needs to sleep elevated to help with her reflux and also with respiratory failure. CT chest Follow-up in 3 months Orders: Orders CT chest wo IV con Today R91.8 - Other nonspecific abnormal finding of lung field Medications: New furosemide (Lasix) 20 mg PO DAILY 7 days 7 tabs 0RF omeprazole 40 mg PO BID 90 days 180 caps 0RF Coding Level of Care Code Est Pt Level 4 (92653) Diagnoses Pulmonary nodules R91.8 Chronic respiratory failure J96.11 Respiratory failure complication: hypoxia Centrilobular emphysema J43.2 GERD (gastroesophageal reflux disease) K21.9 Hiatal hernia K44.9 Time Spent (min) 19
[2022-12-31 11:08] VITALS: BP 110/70; PULSE 86; O2SAT 90
== END 2022-12-31 11:36 | disposition home or self-care (01) ==
PROVIDERS: PCP Internal Medicine; Visit Provider Hospitalist
DX: R91.8 Other nonspecific abnormal finding of lung field (principal); J96.11 Chronic respiratory failure with hypoxia; J43.2 Centrilobular emphysema; K21.9 Gastro-esophageal reflux disease without esophagitis; K44.9 Diaphragmatic hernia without obstruction or gangrene
CPT/HCPCS: 99214

== ENCOUNTER → 2022-12-31 10:55 | Outpatient (BNVA) | payer MEDICARE, MEDICAID, SELFPAY | PROVIDERS: PCP Internal Medicine; Visit Provider Hospitalist | DX: J43.2 Centrilobular emphysema (principal); J96.11 Chronic respiratory failure with hypoxia; K21.9 Gastro-esophageal reflux disease without esophagitis; R91.8 Other nonspecific abnormal finding of lung field; K44.9 Diaphragmatic hernia without obstruction or gangrene; Z87.891 Personal history of nicotine dependence; Z99.81 Dependence on supplemental oxygen | CPT/HCPCS: 99212 ==

== ENCOUNTER 2023-03-06 09:47 | Outpatient (REF) | payer MEDICARE, MEDICAID, SELFPAY ==
--- NOTE | ~2023-03-06 | CT_ITS ---
EXAMINATION: CT CHEST WITHOUT CONTRAST CLINICAL INFORMATION: Abnormal lung finding COMPARISON: Previous chest CTs, most recent, 01/15/2022 TECHNIQUE: Multidetector volumetric CT imaging of the chest was done. Axial MIP volume rendering provided. Sagittal and coronal reformatted images were obtained. This CT examination was performed using dose optimization techniques as appropriate, variously including the following: *Automated exposure control *Adjustment of mA and/or kV according to patient size (this includes techniques or standardized protocols for targeted exams where dose is matched to indication/reason for exam; i.e. extremities or head) *Use of iterative reconstruction technique DLP: 210 mGy-cm FINDINGS: DIRECTOR RADIO NEWS: Aortic calcifications. LUNGS: Biapical pleural thickening Trachea and bronchi are patent. Centrilobular emphysema. Mild mosaic attenuation. Superior segment left lower lobe and anterior right upper lobe and subpleural right lower lobe cannot nonspecific groundglass opacities. Unchanged tiny peripheral right upper lobe nodularities, 4:21. NODULES: RLL: 6 mm subpleural nodule previously measured 8 mm, 4:30. 4 mm nodule, 4:28, previously measured 7 mm. 3 mm, 4:28 not definitely present previously. LLL: Unchanged 2 mm subpleural, 4:34. MEDIASTINUM: No thyroid abnormality. No pathologic lymphadenopathy. Nonenlarged heart. No pericardial effusion. Nonaneurysmal aorta with atherosclerotic calcifications. Nonenlarged pulmonary arteries. CORONARY ARTERY CALCIFICATION: Moderately severe PLEURA: There is no pleural effusion. No pleural mass or thickening. AXILLA: No lymphadenopathy. UPPER ABDOMEN: Enlarged liver measuring 20.7 cm in AP dimension. Diffuse hypodensity to liver parenchyma with focal fatty sparing around the gallbladder fossa. Unchanged too small to characterize posterior hepatic hypodensity near the dome. OSSEOUS STRUCTURES: Unremarkable. CT/CT chest wo IV con IMPRESSION: Resolution masslike consolidations from previous study. Pulmonary nodules, one stable, one new, others decreasing in size. Mild emphysema, mosaic attenuation and scattered nonspecific groundglass opacities, likely infectious. Consider 3-6 month follow-up. Enlarged fatty liver. Fleischner guidelines were followed.
== END 2023-03-06 09:48 | disposition home or self-care (01) ==
LOC: HO.CT 09:47
PROVIDERS: PCP Internal Medicine; Visit Provider Hospitalist
DX: R91.8 Other nonspecific abnormal finding of lung field (principal)
CPT/HCPCS: 71250

== ENCOUNTER 2023-04-03 10:44 | Outpatient (AMB) | payer MEDICARE, MEDICAID, SELFPAY ==
[2023-04-03 10:54] VITALS: BP 128/72; PULSE 64; O2SAT 94; BMI 37.5
--- NOTE | 2023-04-03 10:54 | MHC.OFFVIS ---
Intake Vital Signs 04/03/23 10:54 Height 5 ft Weight 192 lb BMI 37.5 BP 128/72 Blood Pressure Location Lt brachial Position Sitting Pulse 64 Pulse Source Pulse Oximeter Pulse Oximetry (%) 94 Oxygen Delivery Method Room Air Comment 5 Pulse Oxygen([employer]) Intake Visit Reasons: follow up visit Halal Butcher Required: No Allergies morphine [MORPHINE] Allergy (Severe, Verified 04/03/23 10:57) DIFFICULTY BREATHING HPI HPI Comments History of Present Illness Details The patient is a 72-year-old woman known COPD pulmonary nodules. She is O2 dependent. Today she came in and her pulse conserving device. We took her off and placed on room air 5 minutes. Quickly her oxygen decreased to 88%. She needs stay on her oxygen supplementation continuously. We will submit this re-certification to her current [employer] company, by [employer]. In meantime she has been followed with the lung cancer screening program. Over the summer 2018 she did have an episode of pneumonia that resulted in a brief hospitalization after failed outpatient therapy. Initially she received doxycycline. Then she was admitted to the hospital normal. Overall she feels a little better this time. The patient also had a CT scan of the chest that we personally reviewed. She appears to have some increased airspace disease and some bronchitis looking airways primarily on the right lung. This is likely residual to her recent infection back in February. In the meantime her pulmonary nodule on the right is measuring about 8 mm in size and appears to have filled in more than before when I compared to her CT scan from July 2018. Therefore, we'll closely follow this nodule and another 3 months. She stated do a CT scan of the chest ruling out pulmonary emboli. The did find a small but enlarging right breast nodule. She will be following up with this. We did look at her older CT scan from 2019 which demons. She did have a recent CT scan of the chest as a follow-up for her last 1 in June 2019 at [facility]. It appeared that she has a new patchy area of consolidation which is masslike in addition to some areas of ground-glass opacities. This is new when compared to her CT scan from [facility]. This is suggestive process possibly of an infectious process versus a noninfectious inflammatory process. Less likely malignancy although is in the differential. The patient is agreeable to undergo blood work and also bronchoscopy. Will try to schedule it as well as possible in order to properly treat with antibiotics as necessary for ongoing lower respiratory infection. 08/23/2021 the patient is here for a pulmonary follow-up visit. Overall the patient continues to be about the same. Complains of dyspnea on exertion. Feels like is getting a little bit worse. She has a hard time performing the activities of daily living. Her family has been very supportive although she feels that she needs additional assistance. She continues use the oxygen with good effect. She does stay active and busy with her neighborhood friends. In the meantime she did have a recent CT scan of the chest personally by me and also reviewed and compared it to the CT scan she had back in December 2020. It appears that the largest nodule that was measuring 7 mm in size slightly decreased in size which is reassuring. However, now she has 2 new nodules. She does have significant coronary artery disease also noted on her CT scan. Will have to repeat the CT scan in a year's time to make sure that all is stable. She had been participating in the lung cancer screening program. It is okay for her to continue with screening program with a CT scan in July 2021. the patient has been having some difficulties with her inhaler. The Spiriva Respimat has not been effective. Is making a cough and she is not able to taking the medicine well. Therefore, I will switch over to Trelegy inhaler daily to see if this provides better adherence to therapy and provides better bronchodilation and hopefully improving her respiratory symptoms. The patient is also having reflux symptoms. She ext understands that the reflux symptoms could be worsening her underlying airway disease. The patient needs to sleep elevated. She can try bed risers or a wedge pillow. But the best option would be to get a hospital bed. 12/19/2021 the patient is here for a hospital follow-up visit. Overall she is feeling better. She was having worsening respiratory symptoms when to normal [facility]. There she was diagnosed with a COPD exacerbation. Part of the workup included a CTA. She ruled out for any pulmonary emboli. However, appear to have a new 2.6 cm pulmonary nodular density in the right lower lobe in addition to a increasing right lower lobe nodular density of measuring 7 mm in size. We did personally review the CAT scan ourselves. We did see the findings. The patient has a significant lung cancer history therefore she is concerned about the possibility of malignant process. based on the size of the nodular density and the other pulmonary nodules noted will be reasonable to request a PET scan. This last CT scan have him back in [id number]. in the meantime the patient continues to have significant dyspnea on exertion. Moderate with with minimal was activity. This is pre limiting. She continues use the oxygen with good effect. She continues with respiratory therapy. She is back on the Trelegy because seems to be working better although she does not like the idea of taking a steroid. 02/21/2022 this is a telehealth visit. The patient continues to at baseline with her breathing. She did respond well to the Trelegy. She will continue using it for now. She also continues with her oxygen as prescribed. We did talk about her recent CT scan done in January 2022. Initially wanted to get a PET scan but it was denied. Therefore it did request a CT scan of the chest which she had and we did review. I personally reviewed the CT scan she had in January here at [place] and also reviewed the CT scan she had at [facility] October 2021. It appears that some of the lung nodules in the right lower lobe about actually progressed in size. Now 1 measuring 1.3 cm which appears to be little spiculated to me. Her airspace disease and consolidation have improved likely secondary to smoldering infectious process. The patient does have a positive family history of lung cancer and she is high risk because of her smoking history. Therefore based on the fact that her pulmonary nodules are getting worse and the fact that she is at risk for any invasive interventions I will request a PET scan at this time again. 04/24/2022 the patient is here for a pulmonary follow-up visit. The patient continues to have similar complaints of shortness of breath and cough. Moderate severity. The oxygen is helpful. She did undergo the PET scan and we did review together. It appears that some of these nodular densities that are concerning appearance are waxing and waning. The large nodular density now has decreasing size in the FDG activity is minimal. Is suggested this is a inflammatory infectious process. The patient does have reflux symptoms and micro aspirations are in differential. Will go ahead and place her on azithromycin as a promotility agent and also to minimize infectious processes. The patient continues with current respiratory regimen. She is having other issues including symptoms from her hiatal hernia and also having shoulder discomfort. She is looking for a pedis that potentially will help her with her rotator cuff injury. 12/31/2022 the patient is here for a pulmonary follow-up visit. The patient is complaining of worsening dyspnea on exertion. Moderate to severe. Hard to do any activities of daily living. She does have a fever help her in her home. She has been using her oxygen. When she is out and about she does use the conserving device and her oxygen today will come in and was about 88% after walking therefore suggesting that the conserving device may not be enough oxygen for her. However, does provide her with better portability. The patient did have a PET scan back in May to follow-up for her abnormal CT scan. We did review together. Appeared that she does have waxing waning pulmonary nodules. The area of concern appear to have resolved. However now that it has been more than 6 months the patient needs to have a repeat CT scan to make sure that her nodular densities not worsening. The patient is high risk for malignancy. In the meantime she is complaining of reflux disease. She has been having a burning sensation in the chest with any activity. It is concerning from a as far as her potential cardiac condition. She does have a cardiology appointment coming up soon with any rehabilitation program manager. Meantime she is taking a baby aspirin. Will go ahead and increase her reflux medications to help her with that but she understands that her symptoms worsen she needs to seek urgent medical advice in case his heart. 04/03/2023 the patient is here for pulmonary follow-up visit. She does complain of worsening dyspnea on exertion. Even at rest. She has been using the oxygen continuously. However, even with the oxygen even going up to 3 L she is still short of breath. She has significant air trapping that is likely contributing to her worsening dyspnea symptoms. The patient did have a CT scan of the chest which we personally reviewed. Significant improvement in the nodular densities that she had in the right lower lobe. Suggesting more infectious process. She continues on the azithromycin 3 times a week. She will continue this therapy for now. She will follow-up with her rehabilitation program manager and should have an EKG done. The patient will need to undergo pulmonary function studies and highly recommend starting pulmonary rehabilitation again. The patient is very deconditioned and with significant air trapping worsening dynamic inspiratory capacity this will continue to get worse if she does not get active. She will continue with current respiratory therapy. Will follow-up in 4-6 months. FORMERLY [facility], [facility] Medical History (Updated 04/03/23 @ 22:00 by Villa Booker MD) Hiatal hernia GERD (gastroesophageal reflux disease) Lung mass TIA (transient ischemic attack) CAD (coronary artery disease) Pneumonia Chronic respiratory failure Pulmonary nodules Insomnia Centrilobular emphysema Family History (System 10/31/20 @ 13:55 by Nancie Gagnon) Other HTN (hypertension) Social History (Updated 12/31/22 @ 11:14 by Francoise Horan [facility]) Alcohol intake: never Patient Tobacco Use Status: Former Tobacco user Tobacco use type: Cigarette Years Smoked: 30 years Review of Systems Const Denies night sweats ENT Denies change in voice, Denies lip swelling, Denies mouth pain, Reports nasal congestion, Reports nasal discharge and Denies tongue swelling Card Denies chest pain, Reports chest pain at rest, Reports dyspnea and Reports dyspnea on exertion Resp Reports cough, Denies pain on inspiration, Denies pain with cough, Reports dyspnea and Reports dyspnea on exertion GI Denies abdominal pain, Reports dyspepsia and Reports heartburn Musc Reports as per HPI, Reports abnormal gait, Reports myalgias, Reports arthralgias and Reports limited range of motion Neuro Denies Neuro-related abnormal movements and Reports abnormal gait Psych Denies no additional complaints Adonis/Lymph Denies easy bleeding and Denies lymphadenopathy Aller/Immun Denies lip swelling and Denies tongue swelling Physical Exam Vital Signs: Last Vital Signs Pulse 64 04/03/23 10:54 BP 128/72 04/03/23 10:54 Pulse Ox 94 04/03/23 10:54 Oxygen Delivery Method Room Air 04/03/23 10:54 BMI result Body Mass Index 37.5 Const General: alert Eyes Pupils: Equal, round and reactive pupils present Neck Neck: Yes normal visual inspection, Yes full ROM and Yes no lymphadenopathy Chest Chest palpation & inspection: normal inspection of the chest Resp Effort & Inspection: normal respiratory effort and prolonged expiratory phase Auscultation: no crackles, no rales, no wheezes and diminished lung sounds Cardio Rate: regular rate Rhythm: regular rhythm Heart sounds: S1 normal heart sound present and S2 normal heart sound present GI Palpation (GI): Soft to palpation and nontender Auscultation: normal bowel sounds General: Yes no CVA tenderness Back/Spine/Pelvis Back: no CVA tenderness Skin General skin exam: rashes and/or lesions noted Neuro Cranial nerves: Yes Equal, round and reactive pupils present Extrem General: No clubbing, No cyanosis and Yes edema Immunizations pneumoc 20-casey conj-dip cr(PF) 0.5 mL IM syringe Performing Provider: Villa Booker MD Performing Location: [facility] Administered by: Ivett Arechiga LPN on 04/03/23 11:35 Dose Route Admin Location Dispensed Lot Number Expiration Date NDC [employer] 0.5 mL IM Right Deltoid 0.5 mL [id number] 04/16/24 2716-9694-67 [employer] VIS Given Date VIS Provided VIS Publication Date 04/03/23 Single Vaccine 22 Eligibility Eligibility Date Funding Source Not [facility] Eligible 04/03/23 Private Assessment & Plan Assessment & Plan (1) Pulmonary nodules: Comment: RLL nodular density waxing and waning, infectious versus inflammatory, better Code(s): R91.8 - Other nonspecific abnormal finding of lung field (2) Chronic respiratory failure: Comment: O2 dependant Code(s): J96.10 - Chronic respiratory failure, unspecified whether with hypoxia or hypercapnia Qualifiers: Respiratory failure complication: hypoxia Qualified Code(s): J96.11 - Chronic respiratory failure with hypoxia (3) Centrilobular emphysema: Code(s): J43.2 - Centrilobular emphysema (4) GERD (gastroesophageal reflux disease): Code(s): K21.9 - Gastro-esophageal reflux disease without esophagitis Qualifiers: Esophagitis presence: without esophagitis Qualified Code(s): K21.9 - Gastro-esophageal reflux disease without esophagitis (5) Hiatal hernia: Code(s): K44.9 - Diaphragmatic hernia without obstruction or gangrene Plan PFTs Bloodwork / bloodgas start pulmonary rehab at [facility] continue Trelegy continue oxygen supplementation continue Azithromycin MWF continue reflux diet continue PPI Follow-up in 4 months Orders: Orders Complete Blood Count Auto Diff Today J96.10 - Chronic respiratory failure, unspecified whether with hypoxia or hypercapnia, R91.8 - Other nonspecific abnormal finding of lung field Pulmonary Rehab Today J43.2 - Centrilobular emphysema, J96.10 - Chronic respiratory failure, unspecified whether with hypoxia or hypercapnia Pneumococcal 20 Immunization Today Z23 - Encounter for immunization Venous Blood Gas Today J96.10 - Chronic respiratory failure, unspecified whether with hypoxia or hypercapnia, R91.8 - Other nonspecific abnormal finding of lung field Basic Metabolic Panel Today J96.10 - Chronic respiratory failure, unspecified whether with hypoxia or hypercapnia, R91.8 - Other nonspecific abnormal finding of lung field Erythrocyte Sedimentation Rate Today J96.10 - Chronic respiratory failure, unspecified whether with hypoxia or hypercapnia, R91.8 - Other nonspecific abnormal finding of lung field PFT pulmonary function test Today J43.2 - Centrilobular emphysema, J96.10 - Chronic respiratory failure, unspecified whether with hypoxia or hypercapnia Medications: New fluconazole 100 mg PO DAILY 7 days 7 tabs 0RF Coding Level of Care Code Est Pt Level 4 (22189) Diagnoses Pulmonary nodules R91.8 Chronic respiratory failure with hypoxia J96.11 Respiratory failure complication: hypoxia Centrilobular emphysema J43.2 Gastroesophageal reflux disease without esophagitis K21.9 Esophagitis presence: without esophagitis Hiatal hernia K44.9 Time Spent (min) 19
== END 2023-04-03 11:28 | disposition home or self-care (01) ==
PROVIDERS: PCP Internal Medicine; Visit Provider Hospitalist
DX: R91.8 Other nonspecific abnormal finding of lung field (principal); J96.11 Chronic respiratory failure with hypoxia; J43.2 Centrilobular emphysema; K21.9 Gastro-esophageal reflux disease without esophagitis; K44.9 Diaphragmatic hernia without obstruction or gangrene
CPT/HCPCS: 99214

== ENCOUNTER → 2023-04-03 10:44 | Outpatient (BNVA) | payer MEDICARE, MEDICAID, SELFPAY | PROVIDERS: PCP Internal Medicine; Visit Provider Hospitalist | DX: Z23 Encounter for immunization (principal); R91.8 Other nonspecific abnormal finding of lung field; J96.11 Chronic respiratory failure with hypoxia; J43.2 Centrilobular emphysema; K21.9 Gastro-esophageal reflux disease without esophagitis; K44.9 Diaphragmatic hernia without obstruction or gangrene | CPT/HCPCS: 90471; 90677; 99212 ==

== ENCOUNTER 2023-06-18 10:00 | Outpatient (RCR) | payer MEDICARE, MEDICAID, SELFPAY | END 2023-08-16 07:15 | disposition home or self-care (01) | LOC: HO.PR 10:00 | PROVIDERS: PCP Internal Medicine; Visit Provider Hospitalist | DX: J43.2 Centrilobular emphysema (principal); J96.10 Chronic respiratory failure, unspecified whether with hypoxia or hypercapnia | CPT/HCPCS: 94625; 94761; 99215 ==

== ENCOUNTER 2023-09-02 11:00 | Outpatient (REF) | payer MEDICARE, MEDICAID, SELFPAY ==
[2023-09-02 12:23] LABS: Venous Blood Gas Refer to POC result
[2023-09-02 12:24] LABS: VBG Base Excess 11.7 mmol/L; VBG HCO3 40 mmol/L (22-26); VBG pCO2 69 mmHg; VBG pH 7.36 (7.32-7.43); VBG pO2 34 mmHg
== END 2023-09-02 11:01 | disposition home or self-care (01) ==
LOC: HO.LAB 11:00
PROVIDERS: PCP Internal Medicine; Visit Provider Hospitalist
DX: R91.8 Other nonspecific abnormal finding of lung field (principal); J43.2 Centrilobular emphysema; J96.11 Chronic respiratory failure with hypoxia; K21.9 Gastro-esophageal reflux disease without esophagitis; K44.9 Diaphragmatic hernia without obstruction or gangrene; Z99.81 Dependence on supplemental oxygen
CPT/HCPCS: 36415; 82803; 99212

== ENCOUNTER 2023-09-02 11:09 | Outpatient (AMB) | payer MEDICARE, MEDICAID, SELFPAY ==
[2023-09-02 11:21] VITALS: PULSE 79; O2SAT 91; BMI 36.9
--- NOTE | 2023-09-02 11:21 | MHC.OFFVIS ---
Intake Vital Signs 09/02/23 11:21 Height 5 ft Weight 189 lb BMI 36.9 Pulse 79 Pulse Source Pulse Oximeter Pulse Oximetry (%) 91 L Oxygen Delivery Method Room Air Comment 3 Liters Oxygen([employer]) Intake Visit Reasons: COPD Allergies morphine [MORPHINE] Allergy (Severe, Verified 09/02/23 11:24) DIFFICULTY BREATHING HPI HPI Comments History of Present Illness Details The patient is a 72-year-old woman known COPD pulmonary nodules. She is O2 dependent. Today she came in and her pulse conserving device. We took her off and placed on room air 5 minutes. Quickly her oxygen decreased to 88%. She needs stay on her oxygen supplementation continuously. We will submit this re-certification to her current [employer] company, by [employer]. In meantime she has been followed with the lung cancer screening program. Over the summer 2018 she did have an episode of pneumonia that resulted in a brief hospitalization after failed outpatient therapy. Initially she received doxycycline. Then she was admitted to the hospital normal. Overall she feels a little better this time. The patient also had a CT scan of the chest that we personally reviewed. She appears to have some increased airspace disease and some bronchitis looking airways primarily on the right lung. This is likely residual to her recent infection back in February. In the meantime her pulmonary nodule on the right is measuring about 8 mm in size and appears to have filled in more than before when I compared to her CT scan from July 2018. Therefore, we'll closely follow this nodule and another 3 months. She stated do a CT scan of the chest ruling out pulmonary emboli. The did find a small but enlarging right breast nodule. She will be following up with this. We did look at her older CT scan from 2019 which demons. She did have a recent CT scan of the chest as a follow-up for her last 1 in June 2019 at [facility]. It appeared that she has a new patchy area of consolidation which is masslike in addition to some areas of ground-glass opacities. This is new when compared to her CT scan from [facility]. This is suggestive process possibly of an infectious process versus a noninfectious inflammatory process. Less likely malignancy although is in the differential. The patient is agreeable to undergo blood work and also bronchoscopy. Will try to schedule it as well as possible in order to properly treat with antibiotics as necessary for ongoing lower respiratory infection. 04/03/2023 the patient is here for pulmonary follow-up visit. She does complain of worsening dyspnea on exertion. Even at rest. She has been using the oxygen continuously. However, even with the oxygen even going up to 3 L she is still short of breath. She has significant air trapping that is likely contributing to her worsening dyspnea symptoms. The patient did have a CT scan of the chest which we personally reviewed. Significant improvement in the nodular densities that she had in the right lower lobe. Suggesting more infectious process. She continues on the azithromycin 3 times a week. She will continue this therapy for now. She will follow-up with her dispatcher service and should have an EKG done. The patient will need to undergo pulmonary function studies and highly recommend starting pulmonary rehabilitation again. The patient is very deconditioned and with significant air trapping worsening dynamic inspiratory capacity this will continue to get worse if she does not get active. She will continue with current respiratory therapy. Will follow-up in 4-6 months. 09/02/2023 the patient is here for a pulmonary follow-up visit. The patient continues to complain of dyspnea on exertion. Now is worse even at rest moderate severity. With activity she has had 2 in increase her oxygen to 4 L to keep up with her activities of daily living. She is still sleeping 3 L at nighttime. The patient was participating in the pulmonary rehab and she did find it helpful. But then she got sick with a viral syndrome she was not sure if she got sick there. She is finally better even after having COVID afterwards. Now she is ready to go back to rehab because she did like it she was feel like she was getting something not. The patient feels like her breathing is worse she took some prednisone a few days ago that helped her breathing. She is already on Trelegy. She has a hard time with a nebulizer with albuterol because it caused her palpitations and tremulousness. Explained to the patient that she does have some increased wheezing on examination although is difficult to treat based on the fact that she has a cardiac issues. Initially had did recommend the patient start ipratropium nebulizer therapy to use twice a day. However, the patient returned her nebulizer because she was not using it. Will have her undergo a blood test today she was supposed have blood gas before will go ahead and repeat the blood gas and see if she has any worsening of her hypercarbic respiratory failure. The patient will benefit from noninvasive ventilator to help her with respiratory failure. On the patient may be reluctant at this time. I will talk to the patient and also to the [employer] company to see if we can make it work for the patient. [facility] Medical History (Updated 09/02/23 @ 22:38 by Villa Booker MD) Hiatal hernia GERD (gastroesophageal reflux disease) Lung mass TIA (transient ischemic attack) CAD (coronary artery disease) Pneumonia Chronic respiratory failure Pulmonary nodules Insomnia Centrilobular emphysema Family History (System 10/31/20 @ 13:55 by Nancie Gagnon) Other HTN (hypertension) Social History (Updated 12/31/22 @ 11:14 by Francoise Horan [facility]) Alcohol intake: never Patient Tobacco Use Status: Former Tobacco user Tobacco use type: Cigarette Years Smoked: 30 years Review of Systems Const Denies night sweats ENT Denies change in voice, Denies lip swelling, Denies mouth pain, Reports nasal congestion, Reports nasal discharge and Denies tongue swelling Card Denies chest pain, Reports chest pain at rest, Reports dyspnea and Reports dyspnea on exertion Resp Reports cough, Denies pain on inspiration, Denies pain with cough, Reports dyspnea and Reports dyspnea on exertion GI Denies abdominal pain, Reports dyspepsia and Reports heartburn Musc Reports as per HPI, Reports abnormal gait, Reports myalgias, Reports arthralgias and Reports limited range of motion Neuro Denies Neuro-related abnormal movements and Reports abnormal gait Psych Denies no additional complaints Adonis/Lymph Denies easy bleeding and Denies lymphadenopathy Aller/Immun Denies lip swelling and Denies tongue swelling Physical Exam Vital Signs: Last Vital Signs Pulse 79 09/02/23 11:21 Pulse Ox 91 L 09/02/23 11:21 Oxygen Delivery Method Room Air 09/02/23 11:21 BMI result Body Mass Index 36.9 Const General: alert Eyes Pupils: Equal, round and reactive pupils present Neck Neck: Yes normal visual inspection, Yes full ROM and Yes no lymphadenopathy Chest Chest palpation & inspection: normal inspection of the chest Resp Effort & Inspection: normal respiratory effort and prolonged expiratory phase Auscultation: no crackles, no rales, no wheezes and diminished lung sounds Cardio Rate: regular rate Rhythm: regular rhythm Heart sounds: S1 normal heart sound present and S2 normal heart sound present GI Palpation (GI): Soft to palpation and nontender Auscultation: normal bowel sounds General: Yes no CVA tenderness Back/Spine/Pelvis Back: no CVA tenderness Skin General skin exam: rashes and/or lesions noted Neuro Cranial nerves: Yes Equal, round and reactive pupils present Extrem General: No clubbing, No cyanosis and Yes edema Assessment & Plan Assessment & Plan (1) Pulmonary nodules: Code(s): R91.8 - Other nonspecific abnormal finding of lung field (2) Chronic respiratory failure: Comment: O2 dependant Code(s): J96.10 - Chronic respiratory failure, unspecified whether with hypoxia or hypercapnia Qualifiers: Respiratory failure complication: hypoxia Qualified Code(s): J96.11 - Chronic respiratory failure with hypoxia (3) Centrilobular emphysema: Code(s): J43.2 - Centrilobular emphysema (4) GERD (gastroesophageal reflux disease): Code(s): K21.9 - Gastro-esophageal reflux disease without esophagitis Qualifiers: Esophagitis presence: without esophagitis Qualified Code(s): K21.9 - Gastro-esophageal reflux disease without esophagitis (5) Hiatal hernia: Code(s): K44.9 - Diaphragmatic hernia without obstruction or gangrene Plan Bloodwork / bloodgas restart pulmonary rehab at [facility] continue Trelegy continue oxygen supplementation continue Azithromycin MWF continue reflux diet continue PPI Follow-up in 4 months Orders: Orders Venous Blood Gas Today J96.10 - Chronic respiratory failure, unspecified whether with hypoxia or hypercapnia Coding Level of Care Code Est Pt Level 4 (68597) Diagnoses Pulmonary nodules R91.8 Chronic respiratory failure with hypoxia J96.11 Respiratory failure complication: hypoxia Centrilobular emphysema J43.2 Gastroesophageal reflux disease without esophagitis K21.9 Esophagitis presence: without esophagitis Hiatal hernia K44.9 Time Spent (min) 18
== END 2023-09-02 11:50 | disposition home or self-care (01) ==
PROVIDERS: PCP Internal Medicine; Visit Provider Hospitalist
DX: R91.8 Other nonspecific abnormal finding of lung field (principal); J96.11 Chronic respiratory failure with hypoxia; J43.2 Centrilobular emphysema; K21.9 Gastro-esophageal reflux disease without esophagitis; K44.9 Diaphragmatic hernia without obstruction or gangrene
CPT/HCPCS: 99214

== ENCOUNTER 2023-09-27 09:57 | Outpatient (REF) | payer MEDICARE, MEDICAID, SELFPAY ==
[2023-09-27 10:20] VITALS: PULSE 72; RESP 16; O2SAT 91
--- NOTE | 2023-09-27 13:50 | PFT_ITS ---
Flows: FEV1: 37 % of predicted at 0.70 L FVC: 59 % of predicted at 1.43 L FEV1/FVC: 49 % Bronchodilator response: Absent Volumes: Total lung capacity: 88 % of predicted at 3.80 L Residual volume: 134 % of predicted at 2.30 L Slow vital capacity: 58 % of predicted at 1.50 L Expiratory reserve volume: 24 % of predicted at 0.14 L Diffusion capacity: Moderately decreased. Impression: Very severe obstructive ventilatory defect with no bronchodilator response. Increased residual volume suggests hyperinflation. Decreased expiratory reserve volume suggests extrathoracic restriction likely secondary to abdominal obesity. Decreased diffusion capacity suggests emphysema. MTDD
== END 2023-09-27 09:58 | disposition home or self-care (01) ==
LOC: HO.RESP 09:57
PROVIDERS: PCP Internal Medicine; Visit Provider Hospitalist
DX: J43.2 Centrilobular emphysema (principal); J96.10 Chronic respiratory failure, unspecified whether with hypoxia or hypercapnia
CPT/HCPCS: 94010; 94640; 94727; 94729

== ENCOUNTER → 2023-09-27 13:50 | Outpatient (BNV) | payer MEDICARE, MEDICAID, SELFPAY | PROVIDERS: PCP Internal Medicine; Visit Provider Internal Medicine Pulmonary Disease | DX: J43.2 Centrilobular emphysema (principal); J96.10 Chronic respiratory failure, unspecified whether with hypoxia or hypercapnia | CPT/HCPCS: 94060; 94727; 94729 ==

== ENCOUNTER 2024-05-05 15:27 | Outpatient (AMB) | payer MEDICARE, MEDICAID, SELFPAY ==
--- NOTE | 2024-05-05 15:33 | A.OFFVIS_ITS ---
Vital Signs 05/05/24 15:34 Height 5 ft Weight 187 lb 6.287 oz BMI 36.6 BP 108/70 Blood Pressure Location Rt brachial Position Sitting Pulse 77 Pulse Source Pulse Oximeter Pulse Oximetry (%) 89 L Oxygen Delivery Method Nasal Cannula Oxygen Flow Rate 5 Intake Visit Reasons: dyspnea with exertion Allergies morphine [MORPHINE] Allergy (Severe, Verified 05/05/24 15:39) DIFFICULTY BREATHING HPI Comments Details: The patient is a 73-year-old woman known COPD pulmonary nodules. She is O2 dependent. Today she came in and her pulse conserving device. We took her off and placed on room air 5 minutes. Quickly her oxygen decreased to 88%. She needs stay on her oxygen supplementation continuously. We will submit this re- certification to her current DME company, by [employer]. In meantime she has been followed with the lung cancer screening program. Over the summer 2018 she did have an episode of pneumonia that resulted in a brief hospitalization after failed outpatient therapy. Initially she received doxycycline. Then she was admitted to the hospital normal. Overall she feels a little better this time. The patient also had a CT scan of the chest that we personally reviewed. She appears to have some increased airspace disease and some bronchitis looking airways primarily on the right lung. This is likely residual to her recent infection back in February. In the meantime her pulmonary nodule on the right is measuring about 8 mm in size and appears to have filled in more than before w hen I compared to her CT scan from July 2018. Therefore, we'll closely follow this nodule and another 3 months. She stated do a CT scan of the chest ruling out pulmonary emboli. The did find a small but enlarging right breast nodule. She will be following up with this. We did look at her older CT scan from 2019 which j[facility]. She did have a recent CT scan of the chest as a follow- up for her last 1 in June 2019 at [facility]. It appeared that she has a new patchy area of consolidation which is masslike in addition to some areas of ground-glass opacities. This is new when compared to her CT scan from [facility]. This is suggestive process possibly of an infectious process versus a noninfectious inflammatory process. Less likely malignancy although is in the differential. The patient is agreeable to undergo blood work and also bronchoscopy. Will try to schedule it as well as possible in order to properly treat with antibiotics as necessary for ongoing lower respiratory infection. 04/03/2023 the patient is here for pulmonary follow-up visit. She does complain of worsening dyspnea on exertion. Even at rest. She has been using the oxygen continuously. However, even with the oxygen even going up to 3 L she is still short of breath. She has significant air trapping that is likely contributing to her worsening dyspnea symptoms. The patient did have a CT scan of the chest which we personally reviewed. Significant improvement in the nodular densities that she had in the right lower lobe. Suggesting more infectious process. She continues on the azithromycin 3 times a week. She will continue this therapy for now. She will follow-up with her pillow agent and should have an EKG done. The patient will need to undergo pulmonary function studies and highly recommend starting pulmonary rehabilitation again. The patient is very deconditioned and with significant air trapping worsening dynamic inspiratory capacity this will continue to get worse if she does not get active. She will continue with current respiratory therapy. Will follow-up in 4-6 months. 09/02/2023 the patient is here for a pulmonary follow-up visit. The patient continues to complain of dyspnea on exertion. Now is worse even at rest moderate severity. With activity she has had 2 in increase her oxygen to 4 L to keep up with her activities of daily living. She is still sleeping 3 L at nighttime. The patient was participating in the pulmonary rehab and she did find it helpful. But then she got sick with a viral syndrome she was not sure if she got sick there. She is finally better even after having COVID afterwards. Now she is ready to go back to rehab because she did like it she was feel like she was getting something not. The patient feels like her breathing is worse she took some prednisone a few days ago that helped her breathing. She is already on Trelegy. She has a hard time with a nebulizer with albuterol because it caused her palpitations and tremulousness. Explained to the patient that she does have some increased wheezing on examination although is difficult to treat based on the fact that she has a cardiac issues. Initially had did recommend the patient start ipratropium nebulizer therapy to use twice a day. However, the patient returned her nebulizer because she was not using it. Will have her undergo a blood test today she was supposed have blood gas before will go ahead and repeat the blood gas and see if she has any worsening of her hypercarbic respiratory failure. The patient will benefit from noninvasive ventilator to help her with respiratory failure. On the patient may be reluctant at this time. I will talk to the patient and also to the [employer] company to see if we can make it work for the patient. 05/05/2024 the patient is here for sick visit. She has had worsening respiratory symptoms for the last 2 weeks. She had call the office with worsening respiratory symptoms and we did prescribe her some prednisone and antibiotics. She did not complete the prednisone because she did not think they were helping but she did complain antibiotics. She feels like she has a cough. Difficult to expectorate. She has also noticed some increasing heaviness in the chest area. She has been desaturating more regularly now down to the mid 60s on the 3 L of oxygen at home. When she came in today with her conserving device at 3 L pulse she was down with a pulse ox in the 70s. We quickly switched over to 4 L continuous in her oxygen did improve briefly to around 86 87%. Then improved to 89%. But still unclear. Respiratory exam with diminished breath sounds no significant wheezing or rhonchi or crackles. She does have some lower extremity edema. In view of the worsening hypoxia and concerns for end-organ damage I did recommend she go to the ER. I did call the ER triage so they know about her. I do believe that ruling out thromboembolic disease will be important also considering blood work to better address her symptoms. She is reluctant to stay in the hospital but she is willing to be evaluated in the ER this time. [facility] Medical History (Updated 05/05/24 @ 16:04 by Villa Booker MD) Hiatal hernia GERD (gastroesophageal reflux disease) Lung mass TIA (transient ischemic attack) CAD (coronary artery disease) Pneumonia Chronic respiratory failure Pulmonary nodules Insomnia Centrilobular emphysema Family History (System 10/31/20 @ 13:55 by Nancie Gagnon) Other HTN (hypertension) Social History Alcohol intake: never Patient Tobacco Use Status: Former Tobacco user Tobacco use type: Cigarette Years Smoked: 30 years Review of Systems Const Denies night sweats ENT Denies change in voice, Denies lip swelling, Denies mouth pain, Reports nasal congestion, Reports nasal discharge and Denies tongue swelling Card Denies chest pain, Reports chest pain at rest, Reports leg edema, Reports dyspnea and Reports dyspnea on exertion Resp Reports chest congestion, Reports cough, Denies pain on inspiration, Denies pain with cough, Reports dyspnea and Reports dyspnea on exertion GI Denies abdominal pain, Reports dyspepsia and Reports heartburn Musc Reports as per HPI, Reports abnormal gait, Reports myalgias, Reports arthralgias and Reports limited range of motion Neuro Denies Neuro-related abnormal movements and Reports abnormal gait Psych Denies no additional complaints Adonis/Lymph Denies easy bleeding and Denies lymphadenopathy Aller/Immun Denies lip swelling and Denies tongue swelling Physical Exam Vital Signs: Last Vital Signs Pulse 77 05/05/24 15:34 BP 108/70 05/05/24 15:34 Pulse Ox 89 L 05/05/24 15:34 Oxygen Delivery Method Nasal Cannula 05/05/24 15:34 Oxygen Flow Rate 5 05/05/24 15:34 BMI result Body Mass Index 36.6 Const General: alert Eyes Pupils: Equal, round and reactive pupils present Neck Neck: Yes normal visual inspection, Yes full ROM and Yes no lymphadenopathy Chest Chest palpation & inspection: normal inspection of the chest Resp Effort & Inspection: normal respiratory effort and prolonged expiratory phase Auscultation: no crackles, no rales, no wheezes and diminished lung sounds Cardio Rate: regular rate Rhythm: regular rhythm Heart sounds: S1 normal heart sound present and S2 normal heart sound present GI Palpation (GI): Soft to palpation and nontender Auscultation: normal bowel sounds General: Yes no CVA tenderness Back/Spine/Pelvis Back: no CVA tenderness Skin General skin exam: rashes and/or lesions noted Neuro Cranial nerves: Yes Equal, round and reactive pupils present Extrem General: No clubbing, No cyanosis and Yes edema Assessment & Plan Assessment & Plan (1) Acute on chronic hypoxic respiratory failure: Comment: significantly worse Code(s): J96.21 - Acute and chronic respiratory failure with hypoxia Category: Medical (2) Pulmonary nodules: Code(s): R91.8 - Other nonspecific abnormal finding of lung field Category: Medical (3) Chronic respiratory failure: Comment: O2 dependant Code(s): J96.10 - Chronic respiratory failure, unspecified whether with hypoxia or hypercapnia Category: Medical Qualifiers: Respiratory failure complication: hypoxia Qualified Code(s): J96.11 - C hronic respiratory failure with hypoxia (4) Centrilobular emphysema: Code(s): J43.2 - Centrilobular emphysema Category: Medical (5) GERD (gastroesophageal reflux disease): Code(s): K21.9 - Gastro-esophageal reflux disease without esophagitis Category: Medical Qualifiers: Esophagitis presence: without esophagitis Qualified Code(s): K21.9 - Gastro-esophageal reflux disease without esophagitis (6) Hiatal hernia: Code(s): K44.9 - Diaphragmatic hernia without obstruction or gangrene Category: Medical Plan Transfer to ED to evaluated the worsening hypoxia continue Trelegy continue oxygen supplementation continue Azithromycin MWF continue reflux diet continue PPI Follow-up in 1 month Coding Level of Care Code Est Pt Level 5 (09032) Diagnoses Acute on chronic hypoxic respiratory failure J96.21 Pulmonary nodules R91.8 Chronic respiratory failure with hypoxia J96.11 Respiratory failure complication: hypoxia Centrilobular emphysema J43.2 Gastroesophageal reflux disease without esophagitis K21.9 Esophagitis presence: without esophagitis Hiatal hernia K44.9 Time Spent (min) 30
[2024-05-05 15:34] VITALS: BP 108/70; PULSE 77; O2SAT 89; BMI 36.6
== END 2024-05-05 15:53 | disposition home or self-care (01) ==
PROVIDERS: PCP Internal Medicine; Visit Provider Hospitalist
DX: J96.21 Acute and chronic respiratory failure with hypoxia (principal); R91.8 Other nonspecific abnormal finding of lung field; J96.11 Chronic respiratory failure with hypoxia; J43.2 Centrilobular emphysema
CPT/HCPCS: 99214

== ENCOUNTER 2024-05-05 16:09 | Inpatient (IN) | payer MEDICARE, MEDICAID, SELFPAY ==
--- NOTE | ~2024-05-05 | XR_ITS ---
EXAMINATION: XR CHEST CLINICAL INFORMATION: cough COMPARISON: CT chest 03/06/2023, chest radiographs 06/12/2019 TECHNIQUE: 2 views of the chest were obtained. FINDINGS: Heart size normal. There is new patchy consolidation seen predominantly in the left lower lobe with areas of patchy consolidation in the left upper lobe. There may be some minimal disease in the right infrahilar region. No pleural effusions. Heart size normal. Degenerative changes are present in the spine. XR/XR chest 2V IMPRESSION: New patchy consolidation in the left lower lobe and left upper lobe with possible minimal disease in the right infrahilar region. Findings are consistent with pneumonia. Electronically signed by: Sarkis Doan MD 05/05/2024 07:52 PM EST
--- NOTE | ~2024-05-05 | CT_ITS ---
EXAMINATION: CT ANGIOGRAM CHEST CLINICAL INFORMATION: Hypoxia. Dyspnea. COMPARISON: CT chest 03/06/2023. CT chest 01/15/2022. TECHNIQUE: Multiple axial images were obtained through the chest after the administration of 65 mL of Omnipaque 350 intravenous contrast. Extensive vascular post-processing including two-dimensional and three-dimensional reformatted images were created and reviewed on an independent workstation. This CT examination was performed using dose optimization techniques as appropriate, variously including the following: *Automated exposure control *Adjustment of mA and/or kV according to patient size (this includes techniques or standardized protocols for targeted exams where dose is matched to indication/reason for exam; i.e. extremities or head) *Use of iterative reconstruction technique DLP: 301 mGy-cm FINDINGS: Pulmonary arteries: No intraluminal lesions identified within the visualized pulmonary arterial system to suggest the presence of pulmonary emboli. Thoracic aorta: Moderate scattered calcific atherosclerosis. Mediastinum: No lymphadenopathy. Marked diffuse coronary artery calcific atherosclerosis. Normal heart size. No pericardial thickening or pericardial fluid collections. Thoracic wall: No axillary lymphadenopathy. No thoracic wall inflammatory changes. Lungs and pleura: Focal peribronchial consolidation is noted in the posterior aspect of the right lower pulmonary lobe. A 5 mm noncalcified nodule is present in the right lung base (series 9 image 23, series 8 image 212) this finding is unchanged compared with 03/06/2023. This finding is unchanged appreciably compared with 01/15/2022 and is therefore benign appearance. (2017 modified Fleischner Society guidelines). Scattered peribronchial consolidation is noted in the left upper pulmonary lobe and peribronchial wall thickening and scattered interstitial and peribronchial reticular opacities are present in the left lower pulmonary lobe. Mild focal consolidation is noted within the lingula. Mild peribronchial wall thickening is noted within the right lower pulmonary lobe. Visualized abdominal structures: Normal appearance of the adrenal glands. Osseous structures: No suspicious osseous abnormalities identified. CT/CT angio chest PE protocol IMPRESSION: *CT pulmonary angiogram negative for pulmonary emboli. *Multifocal pulmonary consolidation and peribronchial wall inflammatory changes. Findings are suspicious for pneumonia. *Marked diffuse coronary artery calcific atherosclerosis. Electronically signed by: Pranay Marino MD 05/06/2024 02:05 AM [facility]
[2024-05-05 16:13] VITALS: BP 118/53; PULSE 77; RESP 20; TEMP 37.4; O2SAT 96; BMI 37.8
--- NOTE | 2024-05-05 16:14 | ED.SOB ---
HPI - SOB/Dyspnea General Chief Complaint: Dyspnea Stated Complaint: Low O2, Sent from Dr Booker office Time Seen by Provider: 05/05/24 20:01 Related Data Home Medications ?Medication ?Instructions ?Recorded ?Confirmed bisoprolol fumarate 5 mg tablet 5 mg PO DAILY 04/26/20 08/23/21 cholecalciferol (vitamin D3) 25 25 mcg PO DAILY 04/26/20 08/23/21 mcg (1,000 unit) capsule lisinopril 40 mg tablet 40 mg PO DAILY 04/26/20 08/23/21 multivitamin 1 tab PO DAILY 04/26/20 08/23/21 nitroglycerin 0.4 mg sublingual 0.4 mg sublingual angina 01/25/21 08/23/21 tablet ascorbate calcium (vitamin C) 500 500 mg PO DAILY 04/24/21 08/23/21 mg tablet aspirin 81 mg tablet,delayed 81 mg PO DAILY 04/24/21 08/23/21 release acetaminophen 650 mg 650 mg PO Q12H 02/21/22 tablet,extended release (Tylenol Arthritis Pain) atorvastatin 80 mg tablet 80 mg PO DAILY 02/21/22 Oxygen Home Use 04/03/23 levothyroxine 25 mcg tablet 25 mcg PO DAILY 04/03/23 pantoprazole 40 mg tablet,delayed 40 mg PO BID 09/02/23 release Previous Rx's ?Medication ?Instructions ?Recorded omeprazole 40 mg capsule,delayed 40 mg PO BID #180 caps 04/01/23 release fluconazole 100 mg tablet 100 mg PO DAILY 7 days #7 tabs 04/03/23 albuterol sulfate 90 mcg/actuation 2 puff inhalation Q6H PRN for 07/03/23 aerosol inhaler wheezing #1 ea prednisone 20 mg tablet See Rx Instructions PO DAILY 10 10/07/23 days #15 tabs zolpidem 10 mg tablet 10 mg PO BEDTIME #30 tabs 01/06/24 fluticasone fur. 100 mcg-umeclid 1 inh inhalation DAILY #60 ea 04/10/24 62.5 mcg-vilant 25 mcg inhalat.powder (Trelegy Ellipta) prednisone 10 mg tablet See Rx Instructions PO DAILY 18 04/21/24 days #63 tabs azithromycin 250 mg tablet 250 mg PO 3XW #12 tabs 04/22/24 Allergies Allergy/AdvReac Type Severity Reaction Status Date / Time morphine [MORPHINE] Allergy Severe DIFFICULTY Verified 05/05/24 16:15 BREATHING [facility] Past Medical History Medical History Hiatal hernia GERD (gastroesophageal reflux disease) Lung mass TIA (transient ischemic attack) CAD (coronary artery disease) Pneumonia Chronic respiratory failure Pulmonary nodules Insomnia Centrilobular emphysema Family History Family History Other HTN (hypertension) Social History Social History Alcohol intake: never Patient Tobacco Use Status: Former Tobacco user Tobacco use type: Cigarette Years Smoked: 30 years Advance Directives: No Advance Directives Information Provided: Yes Do you have a plan to hurt others: No Plan Physical Exam Vital Signs: Vital Signs: Last Vital Signs Temp 98.9 F 05/05/24 22:41 Pulse 82 05/05/24 22:41 Resp 24 H 05/05/24 22:41 BP 137/49 L 05/05/24 22:41 Pulse Ox 94 05/05/24 22:41 O2 Del Method Nasal Cannula 05/05/24 22:41 O2 Flow Rate 4 05/05/24 22:41 BMI result Body Mass Index 37.8 Course Course Course Narrative: This is a Rapid Medical Examination (RME) performed by Bekah Castellanos PA-C in triage. Full HPI, ROS, assessment and treatment plan per primary provider in the Main ED. 73 yo female with history of chronic hypoxic and hypercarbic respiratory faliure on 2-3L NC at baseline, COPD, PVD, hypothyroidism who presents to the ER for evaluation of hypoxia. SpO2 50s in the Pulmonary office today. She reports episodes of severe hypoxia with exertion for the last 1-2 weeks. Sent in from Dr. Booker's office. she has had worsening leg swelling for the last 3 months. she has lost 10 lbs in the last 3 weeks. Plan: CXR, EKG, labs, viral swab Medications Administered Discontinued Medications Generic Name Dose Route Start Last Admin Trade Name Freq PRN Reason Stop Dose Admin Albuterol Sulfate 2.5 mg 05/05/24 22:08 05/05/24 22:29 Albuterol Sulfate (0.083%) 2.5 Mg/3 Ml Vial.Neb INHALE 05/05/24 22:09 2.5 mg ONCE ONE Administration Albuterol/Ipratropium 3 ml 05/05/24 22:08 05/05/24 22:29 Albuterol/Iprat 2.5/0.5mg 3 Ml Ampul.Neb INHALE 05/05/24 22:09 3 ml ONCE ONE Administration Medical Decision Making Medical Decision Making MDM Narrative: Baseline on 4 L of oxygen presented today with having Lab Data 05/05/24 16:42 05/05/24 16:42 Labs: Lab Results 05/05/24 05/05/24 Range/Units 16:33 16:42 WBC 11.2 H (4.8-10.8) X10*3/uL RBC 4.16 L (4.20-5.50) X10*6/uL Hgb 11.7 L (12.0-16.0) g/dl Hct 38.4 (37.0-47.0) % MCV 92.3 (80.0-98.0) fL MCH 28.1 (27.0-33.0) pg MCHC 30.5 L (31.0-35.0) g/dl RDW 13.4 (11.0-16.0) % Plt Count 238 (160-400) X10*3/uL MPV 8.9 L (9.4-12.3) fL Immature Gran % (Auto) 0.7 H (0.0-0.4) % Neut % (Auto) 63.2 (45-73) % Lymph % (Auto) 15.8 L (20-40) % [place] % (Auto) 12.7 H (2-11) % Eos % (Auto) 7.2 H (0-4) % Baso % (Auto) 0.4 (0-2) % Lymph # (Auto) 1.8 (1.2-4.9) X10*3/uL [place] # (Auto) 1.4 H (0.1-1.2) X10*3/uL Eos # (Auto) 0.8 H (0.0-0.4) X10*3/uL Baso # (Auto) 0.0 (0.0-0.2) X10*3/uL Abs Immat Gran (auto) 0.08 H (0.00-0.03) X10*3/uL Absolute Neuts (auto) 7.1 (2.0-8.3) x10*3/uL Absolute Nucleated RBC 0.000 (0.0-0.012) X10*3/uL Nucleated RBC % (auto) 0.0 (0.0-0.2) /100WBC PT 13.3 H (10.9-12.4) SEC INR 1.1 (0.9-1.1) APTT 27.3 (26.0-36.8) SEC VBG pH 7.43 (7.32-7.43) VBG pCO2 65 mmHg VBG pO2 45 mmHg VBG HCO3 44 H (22-26) mmol/L VBG O2 Saturation 80.0 % VBG Base Excess 16.4 mmol/L Sodium 140 (135-145) mmol/L Potassium 4.3 (3.3-5.1) mmol/L Chloride 97 (96-108) mmol/L Carbon Dioxide 37 H (22-29) mmol/L Anion Gap 10 L (12-20) BUN 18 H (9-16) mg/dL Creatinine 0.65 (0.5-1.4) mg/dL Estim Creat Clear Calc 75.1 Estimated GFR > 60 Random Glucose 241 H (60-115) mg/dL Calcium 9.7 D (8.4-10.2) mg/dL Magnesium 2.1 (1.6-2.6) mg/dL Total Bilirubin 0.4 (0.0-1.0) mg/dL Direct Bilirubin 0.1 (0.0-0.5) mg/dL AST 12 (5-31) U/L ALT 14 (0-31) U/L Alkaline Phosphatase 88 (39-117) U/L Troponin I High Sens < 2.7 (<3.5-17.0) ng/L B-Natriuretic Peptide 22 (<100) pg/mL Total Protein 6.6 (6.5-8.0) g/dL Albumin 3.5 (3.5-5.0) g/dL Influenza Type A (PCR) NEGATIVE (Negative) Influenza Type B (PCR) NEGATIVE (Negative) RSV RNA Qual (PCR) NEGATIVE (Negative) SARS-CoV-2 RNA (RT-PCR) NEGATIVE (Negative) Discharge Plan Discharge Clinical Impression: Asthma with exacerbation, Community acquired pneumonia Patient Disposition: Admitted As Inpatient Print Language: Kenyan
--- NOTE | 2024-05-05 16:18 | ECG_ITS ---
Test Reason : SOB Blood Pressure : / mmHG Vent. Rate : 075 BPM Atrial Rate : 075 BPM P-R Int : 206 ms QRS Dur : 086 ms QT Int : 368 ms P-R-T Axes : 086 -05 047 degrees QTc Int : 410 ms Sinus rhythm with sinus arrhythmia with Premature ventricular complexes or Fusion complexes Otherwise normal ECG When compared with ECG of 12-JUN-2019 15:23, Fusion complexes are now Present Referred By: Lupe Castellanos Electronically Signed By:ALVAREZ SILVA MD
[2024-05-05 16:48] LABS: MANUAL DIFF FLAG NO
[2024-05-05 16:54] LABS: Basophils Percent Auto 0.4 % (0-2); Eosinophils Absolute Auto 0.8 X10*3/uL (0.0-0.4); Eosinophils Percent Auto 7.2 % (0-4); Hematocrit 38.4 % (37.0-47.0); Hemoglobin 11.7 g/dl (12.0-16.0); Imm Gran Abs Auto 0.08 X10*3/uL (0.00-0.03); Imm Gran Pct Auto 0.7 % (0.0-0.4); Lymphocytes Absolute Auto 1.8 X10*3/uL (1.2-4.9); Lymphocytes Percent Auto 15.8 % (20-40); Mean Corpuscular HGB Conc 30.5 g/dl (31.0-35.0); Mean Corpuscular Hemoglobin 28.1 pg (27.0-33.0); Mean Corpuscular Volume 92.3 fL (80.0-98.0); Mean Platelet Volume 8.9 fL (9.4-12.3); Monocytes Absolute Auto 1.4 X10*3/uL (0.1-1.2); Monocytes Percent Auto 12.7 % (2-11); Neutrophils Absolute Auto 7.1 x10*3/uL (2.0-8.3); Neutrophils Percent Auto 63.2 % (45-73); Platelet Count 238 X10*3/uL (160-400); Red Blood Count 4.16 X10*6/uL (4.20-5.50); Red Cell Distribution Width 13.4 % (11.0-16.0); White Blood Count 11.2 X10*3/uL (4.8-10.8)
[2024-05-05 16:56] LABS: INTERNATIONAL NORM RATIO 1.1 (0.9-1.1); Prothrombin Time 13.3 SEC (10.9-12.4)
[2024-05-05 16:56] LABS: VBG Base Excess 16.4 mmol/L; VBG HCO3 44 mmol/L (22-26); VBG pCO2 65 mmHg; VBG pH 7.43 (7.32-7.43); VBG pO2 45 mmHg; Venous Blood Gas Refer to POC result
[2024-05-05 16:59] LABS: Partial Thromboplastin Time 27.3 SEC (26.0-36.8)
[2024-05-05 17:16] LABS: B Type Natriuretic Peptide 22 pg/mL (<100)
[2024-05-05 17:18] LABS: Troponin-I High Sensitivity < 2.7 ng/L (<3.5-17.0)
[2024-05-05 17:20] LABS: Alanine Aminotransferase 14 U/L (0-31); Albumin Level 3.5 g/dL (3.5-5.0); Alkaline Phosphatase 88 U/L (39-117); Anion Gap 10 (12-20); Aspartate Amino Transferase 12 U/L (5-31); Bilirubin Direct 0.1 mg/dL (0.0-0.5); Bilirubin Total 0.4 mg/dL (0.0-1.0); Blood Urea Nitrogen 18 mg/dL (9-16); Calcium 9.7 mg/dL (8.4-10.2); Carbon Dioxide 37 mmol/L (22-29); Chloride 97 mmol/L (96-108); Creatinine Clr Calc Pharmacy 75.1; Estimated Glomerular Filt Rate > 60; Glucose Random 241 mg/dL (60-115); Magnesium 2.1 mg/dL (1.6-2.6); Potassium 4.3 mmol/L (3.3-5.1); Sodium 140 mmol/L (135-145); Total Protein 6.6 g/dL (6.5-8.0)
[2024-05-05 17:27] LABS: Influenza A PCR NEGATIVE (Negative); Influenza B PCR NEGATIVE (Negative); Resp Syncy Virus RNA Qual PCR NEGATIVE (Negative); SARS COV2 PCR INHOUSE NEGATIVE (Negative)
[2024-05-05 20:00] VITALS: BP 109/51; PULSE 75; RESP 20; TEMP 36.6; O2SAT 98
[2024-05-05 20:14] VITALS: O2SAT 90
[2024-05-05 20:15] VITALS: PULSE 75; O2SAT 90
--- NOTE | 2024-05-05 22:22 | ED_ITS ---
HPI - SOB/Dyspnea General Chief Complaint: Dyspnea Stated Complaint: Low O2, Sent from Dr Booker office Time Seen by Provider: 05/05/24 20:01 History of Present Illness HPI Narrative: Patient is a 73-year-old female with a history of COPD. Baseline is on 4 L of oxygen at home. Presented today with having increasing shortness of breath. Leg edema that is been ongoing for months. No diaphoresis. Low-grade fever at home. Coughing congestion upper respiratory symptoms. Related Data Home Medications ?Medication ?Instructions ?Recorded ?Confirmed bisoprolol fumarate 5 mg tablet 5 mg PO DAILY 04/26/20 08/23/21 cholecalciferol (vitamin D3) 25 25 mcg PO DAILY 04/26/20 08/23/21 mcg (1,000 unit) capsule lisinopril 40 mg tablet 40 mg PO DAILY 04/26/20 08/23/21 multivitamin 1 tab PO DAILY 04/26/20 08/23/21 nitroglycerin 0.4 mg sublingual 0.4 mg sublingual angina 01/25/21 08/23/21 tablet ascorbate calcium (vitamin C) 500 500 mg PO DAILY 04/24/21 08/23/21 mg tablet aspirin 81 mg tablet,delayed 81 mg PO DAILY 04/24/21 08/23/21 release acetaminophen 650 mg 650 mg PO Q12H 02/21/22 tablet,extended release (Tylenol Arthritis Pain) atorvastatin 80 mg tablet 80 mg PO DAILY 02/21/22 Oxygen Home Use 04/03/23 levothyroxine 25 mcg tablet 25 mcg PO DAILY 04/03/23 pantoprazole 40 mg tablet,delayed 40 mg PO BID 09/02/23 release Previous Rx's ?Medication ?Instructions ?Recorded omeprazole 40 mg capsule,delayed 40 mg PO BID #180 caps 04/01/23 release fluconazole 100 mg tablet 100 mg PO DAILY 7 days #7 tabs 04/03/23 albuterol sulfate 90 mcg/actuation 2 puff inhalation Q6H PRN for 07/03/23 aerosol inhaler wheezing #1 ea prednisone 20 mg tablet See Rx Instructions PO DAILY 10 10/07/23 days #15 tabs zolpidem 10 mg tablet 10 mg PO BEDTIME #30 tabs 01/06/24 fluticasone fur. 100 mcg-umeclid 1 inh inhalation DAILY #60 ea 04/10/24 62.5 mcg-vilant 25 mcg inhalat.powder (Trelegy Ellipta) prednisone 10 mg tablet See Rx Instructions PO DAILY 18 04/21/24 days #63 tabs azithromycin 250 mg tablet 250 mg PO 3XW #12 tabs 04/22/24 Allergies Allergy/AdvReac Type Severity Reaction Status Date / Time morphine [MORPHINE] Allergy Severe DIFFICULTY Verified 05/05/24 16:15 BREATHING Review of Systems 2 Review of Systems: Positive shortness of breath coughing upper respiratory symptoms Yes all other systems are reviewed and are negative [facility] Past Medical History Attestation statement: The following information was validated with the patient. Source: unable to obtain Medical History Hiatal hernia GERD (gastroesophageal reflux disease) Lung mass TIA (transient ischemic attack) CAD (coronary artery disease) Pneumonia Chronic respiratory failure Pulmonary nodules Insomnia Centrilobular emphysema Family History Family History Other HTN (hypertension) Social History Social History Alcohol intake: never Patient Tobacco Use Status: Former Tobacco user Tobacco use type: Cigarette Years Smoked: 30 years Advance Directives: No Advance Directives Information Provided: Yes Do you have a plan to hurt others: No Plan Physical Exam 2 Vital Signs: Vital Signs: Last Vital Signs Temp 97.8 F 05/05/24 20:00 Pulse 75 05/05/24 20:15 Resp 20 05/05/24 20:00 BP 109/51 L 05/05/24 20:00 Pulse Ox 90 L 05/05/24 20:15 O2 Del Method Nasal Cannula 05/05/24 20:15 O2 Flow Rate 4 05/05/24 20:15 BMI result Body Mass Index 37.8 Appearance: Alert. Oriented X3. No acute distress. Eyes: Pupils equal, round and reactive to light. ENT: Pharynx normal. Neck: Normal inspection. Neck supple. No lymph nodes noted. No crepitus CVS: Normal heart rate and rhythm. Pulses normal. Normal S1 and S2 Respiratory: No respiratory distress. Positive decreased breath sounds bilaterally Abdomen: Soft and nontender. No rigidity. No distention. good BS x4 Skin: Skin warm and dry. Normal skin color. Normal skin turgor. Extremities: 2+ edema to the lower extremity. Neurovascular intact to all extremities. No Lacerations. No Rash Neuro: Oriented X 3. No motor deficit. No sensory deficit. Moving all extermities. No slurred speech Medical Decision Making Medical Decision Making [facility] Narrative: Positive shortness of breath coughing upper respiratory symptoms patient's lung sounds diminished bilaterally. Had increasing shortness of breath when she ambulates. Patient baseline is on 4 L of oxygen at home. Her white count is 12. Her VBG showed a pH of 7.43 with a pCO2 65 PaO2 45 this is chronic CO2 retention. No evidence for acute CO2 retention. Patient's electrolytes are unremarkable. BNP is normal. No evidence for congestive heart failure. Her PSIS score is indeterminate with patient having been 73 years old also having a history of peripheral vascular disease. She was not tachycardic. Her pH was not acidotic. Steroid was given. Antibiotic to be started as patient's chest x-ray per radiology's interpretation shows significant pneumonia. Case discussed with hospitalist team. Will admit for further evaluation. Patient's COVID flu RSV were all negative. Differential Diagnosis Differential Diagnoses: The differential diagnosis associated with the presentation includes Pneumonia, COPD, CO2 retention Admission/Observation Consideration of admission/observation: Escalation of care including admission/observation considered Consult Healthcare Provider Management of the patient was discussed with: Hospitalist Lab Data [facility] Lab Attestation statement: I reviewed the patient's lab results. 05/05/24 16:42 05/05/24 16:42 Labs: Lab Results 05/05/24 05/05/24 Range/Units 16:33 16:42 WBC 11.2 H (4.8-10.8) X10*3/uL RBC 4.16 L (4.20-5.50) X10*6/uL Hgb 11.7 L (12.0-16.0) g/dl Hct 38.4 (37.0-47.0) % MCV 92.3 (80.0-98.0) fL MCH 28.1 (27.0-33.0) pg MCHC 30.5 L (31.0-35.0) g/dl RDW 13.4 (11.0-16.0) % Plt Count 238 (160-400) X10*3/uL MPV 8.9 L (9.4-12.3) fL Immature Gran % (Auto) 0.7 H (0.0-0.4) % Neut % (Auto) 63.2 (45-73) % Lymph % (Auto) 15.8 L (20-40) % [place] % (Auto) 12.7 H (2-11) % Eos % (Auto) 7.2 H (0-4) % Baso % (Auto) 0.4 (0-2) % Lymph # (Auto) 1.8 (1.2-4.9) X10*3/uL [place] # (Auto) 1.4 H (0.1-1.2) X10*3/uL Eos # (Auto) 0.8 H (0.0-0.4) X10*3/uL Baso # (Auto) 0.0 (0.0-0.2) X10*3/uL Abs Immat Gran (auto) 0.08 H (0.00-0.03) X10*3/uL Absolute Neuts (auto) 7.1 (2.0-8.3) x10*3/uL Absolute Nucleated RBC 0.000 (0.0-0.012) X10*3/uL Nucleated RBC % (auto) 0.0 (0.0-0.2) /100WBC PT 13.3 H (10.9-12.4) SEC INR 1.1 (0.9-1.1) APTT 27.3 (26.0-36.8) SEC VBG pH 7.43 (7.32-7.43) VBG pCO2 65 mmHg VBG pO2 45 mmHg VBG HCO3 44 H (22-26) mmol/L VBG O2 Saturation 80.0 % VBG Base Excess 16.4 mmol/L Sodium 140 (135-145) mmol/L Potassium 4.3 (3.3-5.1) mmol/L Chloride 97 (96-108) mmol/L Carbon Dioxide 37 H (22-29) mmol/L Anion Gap 10 L (12-20) BUN 18 H (9-16) mg/dL Creatinine 0.65 (0.5-1.4) mg/dL Estim Creat Clear Calc 75.1 Estimated GFR > 60 Random Glucose 241 H (60-115) mg/dL Calcium 9.7 D (8.4-10.2) mg/dL Magnesium 2.1 (1.6-2.6) mg/dL Total Bilirubin 0.4 (0.0-1.0) mg/dL Direct Bilirubin 0.1 (0.0-0.5) mg/dL AST 12 (5-31) U/L ALT 14 (0-31) U/L Alkaline Phosphatase 88 (39-117) U/L Troponin I High Sens < 2.7 (<3.5-17.0) ng/L B-Natriuretic Peptide 22 (<100) pg/mL Total Protein 6.6 (6.5-8.0) g/dL Albumin 3.5 (3.5-5.0) g/dL Influenza Type A (PCR) NEGATIVE (Negative) Influenza Type B (PCR) NEGATIVE (Negative) RSV RNA Qual (PCR) NEGATIVE (Negative) SARS-CoV-2 RNA (RT-PCR) NEGATIVE (Negative) Independent Interpretation I performed an independent interpretation of an: EKG (Sinus heart rate is 75 NV QRS QTC within normal limits there is no acute ST segment elevation) Radiology Impression Discussion of test interpretation with radiology: I have reviewed the radiologist's reading. Chronic Conditions COPD baseline on oxygen Social Determinants Previous history of smoking Discharge Plan Discharge Clinical Impression: Asthma with exacerbation, Community acquired pneumonia Patient Disposition: Admitted As Inpatient Prescriptions: No Action omeprazole 40 mg capsule,delayed release(DR/EC) 40 mg PO BID Qty: 180 0RF albuterol sulfate 90 mcg/actuation HFA aerosol inhaler 2 puff inhalation Q6H PRN (Reason: for wheezing) Qty: 1 2RF prednisone 20 mg tablet See Rx Instructions PO DAILY 10 Days Qty: 15 0RF Rx Instructions: PO daily; Take 2 tabs daily x 5 days, then 1 tablet daily x 5 days zolpidem 10 mg tablet 10 mg PO BEDTIME Qty: 30 3RF Trelegy Ellipta 100-62.5-25 mcg blister with device 1 inh inhalation DAILY Qty: 60 4RF prednisone 10 mg tablet See Rx Instructions PO DAILY 18 Days Qty: 63 0RF Rx Instructions: PO daily; Take 6 tabs daily x 3 days, then 5 tabs x 3 days, then 4 tabs x 3 days, then 3 tabs x 3 days, then 2 tabs daily x 3 days, then 1 tab x 3 days to complete. azithromycin 250 mg tablet 250 mg PO 3XW Qty: 12 2RF lisinopril 40 mg tablet 40 mg PO DAILY bisoprolol fumarate 5 mg tablet 5 mg PO DAILY cholecalciferol (vitamin D3) 25 mcg (1,000 unit) capsule 25 mcg PO DAILY multivitamin Tablet 1 tab PO DAILY nitroglycerin 0.4 mg tablet, sublingual 0.4 mg sublingual aspirin 81 mg tablet,delayed release (DR/EC) 81 mg PO DAILY ascorbate calcium (vitamin C) 500 mg tablet 500 mg PO DAILY atorvastatin 80 mg tablet 80 mg PO DAILY acetaminophen [Tylenol Arthritis Pain] 650 mg tablet extended release 650 mg PO Q12H pantoprazole 40 mg tablet,delayed release (DR/EC) 40 mg PO BID levothyroxine 25 mcg tablet 25 mcg PO DAILY (DME) Oxygen Home Use Kit See Rx Instructions .ROUTE Rx Instructions: As directed fluconazole 100 mg tablet 100 mg PO DAILY 7 Days Qty: 7 0RF Print Language: Qatari
[2024-05-05] MEDS: Albuterol/Iprat 2.5/0.5MG 3 ML AMPUL.NEB INHALE (22:29)
[2024-05-05] MEDS: Albuterol Sulfate (0.083%) 2.5 MG/3 ML VIAL.NEB INHALE (22:29)
[2024-05-05 22:34] VITALS: PULSE 76; RESP 18; O2SAT 94
[2024-05-05 22:41] VITALS: BP 137/49; PULSE 82; RESP 24; TEMP 37.2; O2SAT 94
--- NOTE | 2024-05-05 22:56 | PM.IMHP ---
History of Present Illness Date of Service: 05/05/24 Chief Complaint: Dyspnea This is a 73-year-old female with pertinent history of chronic hypoxemic respiratory failure due to severe COPD on 4 L supplemental oxygen, hypothyroidism, hypertension, gastroesophageal reflux disease who presents to the emergency department for evaluation of dyspnea. Patient states her symptoms started 2 weeks prior to presentation. She has been having dyspnea which is worse with exertion. Also has cough with minimal sputum production and wheezing. She was seen today at her strategic account executive's office who sent the patient to the ER for further evaluation. Patient's sats dropping to the 60s on ambulation on her baseline supplemental oxygen. No fever, chills, chest pain, palpitations, abdominal pain, changes in urinary or bowel habits. In the emergency department, imaging with left-sided pneumonia. Patient given IV antibiotics, steroids and breathing treatment in the ER. Review of Systems Constitutional: Constitutional: Reports fatigue, Reports malaise and Reports weakness Cardiovascular: Cardiovascular: Reports dyspnea on exertion Respiratory: Respiratory: Reports cough, Reports dyspnea on exertion and Reports wheezing Gastrointestinal: Gastrointestinal: Reports no additional gastrointestinal complaints Genitourinary: Genitourinary: Reports no additional female genitourinary complaints Neurologic: Reports weakness Endocrine: Endocrine: Reports fatigue Allergic/Immunologic: Allergic/Immunologic: Reports wheezing [facility] Medical History Hiatal hernia GERD (gastroesophageal reflux disease) Lung mass TIA (transient ischemic attack) CAD (coronary artery disease) Pneumonia Chronic respiratory failure Pulmonary nodules Insomnia Centrilobular emphysema Family History Other HTN (hypertension) Social History Alcohol intake: never Patient Tobacco Use Status: Former Tobacco user Tobacco use type: Cigarette Years Smoked: 30 years Advance Directives: No Advance Directives Information Provided: Yes Do you have a plan to hurt others: No Plan Meds Allergies Allergy/AdvReac Type Severity Reaction Status Date / Time morphine [MORPHINE] Allergy Severe DIFFICULTY Verified 05/05/24 16:15 BREATHING Home Medications ?Medication ?Instructions ?Recorded ?Confirmed ?Last Taken ?Type bisoprolol fumarate 5 mg tablet 5 mg PO DAILY 04/26/20 08/23/21 Unknown History cholecalciferol (vitamin D3) 25 25 mcg PO DAILY 04/26/20 08/23/21 Unknown History mcg (1,000 unit) capsule lisinopril 40 mg tablet 40 mg PO DAILY 04/26/20 08/23/21 Unknown History multivitamin 1 tab PO DAILY 04/26/20 08/23/21 Unknown History nitroglycerin 0.4 mg sublingual 0.4 mg sublingual angina 01/25/21 08/23/21 Unknown History tablet ascorbate calcium (vitamin C) 500 500 mg PO DAILY 04/24/21 08/23/21 Unknown History mg tablet aspirin 81 mg tablet,delayed 81 mg PO DAILY 04/24/21 08/23/21 Unknown History release acetaminophen 650 mg 650 mg PO Q12H 02/21/22 Unknown History tablet,extended release (Tylenol Arthritis Pain) atorvastatin 80 mg tablet 80 mg PO DAILY 02/21/22 Unknown History Oxygen Home Use 04/03/23 Unknown History levothyroxine 25 mcg tablet 25 mcg PO DAILY 04/03/23 Unknown History pantoprazole 40 mg tablet,delayed 40 mg PO BID 09/02/23 Unknown History release Physical Exam Vital Signs and Narrative: Vital Signs: Last Vital Signs Temp 98.9 F 05/05/24 22:41 Pulse 82 05/05/24 22:41 Resp 24 H 05/05/24 22:41 BP 137/49 L 05/05/24 22:41 Pulse Ox 94 05/05/24 22:41 O2 Del Method Nasal Cannula 05/05/24 22:41 O2 Flow Rate 4 05/05/24 22:41 BMI result Body Mass Index 37.8 Middle-aged female lying in bed in mild distress on supplemental oxygen Neck supple, no JVD Regular rate and rhythm, S1-S2 heard Bilateral wheezing present Abdomen soft nontender, no guarding, no rigidity Patient is awake, alert and oriented to self, place, time and person ; no focal motor deficit Psych: Normal mood No pedal edema Results Labs 05/05/24 16:42 05/05/24 16:42 Labs: Laboratory Results - last 24 hr 05/05/24 05/05/24 16:33 16:42 MCV 92.3 MCH 28.1 MCHC 30.5 L RDW 13.4 Plt Count 238 MPV 8.9 L Immature Gran % (Auto) 0.7 H Neut % (Auto) 63.2 Lymph % (Auto) 15.8 L [place] % (Auto) 12.7 H Eos % (Auto) 7.2 H Baso % (Auto) 0.4 Lymph # (Auto) 1.8 [place] # (Auto) 1.4 H Eos # (Auto) 0.8 H Baso # (Auto) 0.0 Abs Immat Gran (auto) 0.08 H Absolute Neuts (auto) 7.1 Absolute Nucleated RBC 0.000 Nucleated RBC % (auto) 0.0 PT 13.3 H INR 1.1 APTT 27.3 VBG pH 7.43 VBG pCO2 65 VBG pO2 45 VBG HCO3 44 H VBG O2 Saturation 80.0 VBG Base Excess 16.4 Anion Gap 10 L Estim Creat Clear Calc 75.1 Estimated GFR > 60 Random Glucose 241 H Calcium 9.7 D Magnesium 2.1 Total Bilirubin 0.4 Direct Bilirubin 0.1 AST 12 ALT 14 Alkaline Phosphatase 88 Troponin I High Sens < 2.7 B-Natriuretic Peptide 22 Total Protein 6.6 Albumin 3.5 Influenza Type A (PCR) NEGATIVE Influenza Type B (PCR) NEGATIVE RSV RNA Qual (PCR) NEGATIVE SARS-CoV-2 RNA (RT-PCR) NEGATIVE Imaging Radiologist's Impressions: Impressions Chest X-Ray 05/05/24 16:45 IMPRESSION: New patchy consolidation in the left lower lobe and left upper lobe with possible minimal disease in the right infrahilar region. Findings are consistent with pneumonia. Electronically signed by: Sarkis Doan MD 05/05/2024 07:[address] [facility] Assessment and Plan (1) COPD exacerbation: Status: Acute (2) Community acquired pneumonia: Status: Acute Plan This is a 73-year-old female with pertinent history of chronic hypoxemic respiratory failure due to severe COPD on 4 L supplemental oxygen, hypothyroidism, hypertension, gastroesophageal reflux disease who presents to the emergency department for evaluation of dyspnea. #. Acute on chronic hypoxic respiratory failure due to left-sided pneumonia leading to COPD exacerbation: Will admit patient with supplemental oxygen. Noted hypoxia with ambulation. Initiating IV ceftriaxone and azithromycin. Failed outpatient antibiotics. Scheduled and p.r.n. DuoNebs. Continue home inhaler. Initiating systemic steroids. CT chest pending. No sepsis #. Hypothyroidism: On Synthroid #. Hypertension: Continue home antihypertensives #. Gastroesophageal reflux disease: On PPI Med rec pending DVT prophylaxis: Lovenox Full code Admit as inpatient and will require two night minimum hospital stay for supplemental oxygen, IV antibiotics, systemic steroids, monitoring of respiratory status (as above), which is not possible in a lesser acute setting. Quality Stroke Does the patient have a stroke diagnosis?: No VTE Prior VTE?: No VTE Risk Level:: Medical - moderate - high VTE Device Contraindication: Treatment Not Indicated VTE Drug Contraindication: N/A - Med Ordered
[2024-05-06] VITALS (7 sets, daily range): BP systolic 136–176; BP diastolic 67–87; PULSE 76–87; RESP 18–20; TEMP 36.6–36.8; O2SAT 90–96
--- NOTE | 2024-05-06 00:39 | PC.NURSE ---
Medication delayed d/t difficulty getting IV access, this RN attempted but failed. YOANA Neri placed ultrasound guided IV #20. Pt in CT at this time.
[2024-05-06 00:46] LABS: Lactic Acid 1.5 mmol/L (0.5-2.0)
[2024-05-06] MEDS: methylPREDNISolone Sod Succ 125 MG/2 ML VIAL IVPUSH (00:53)
[2024-05-06] MEDS: iohexoL 350 MG/ML 100 ML INFUS..BTL 65 ML IV (00:56)
[2024-05-06] MEDS: Azithromycin 500 MG in 0.9 % Sodium Chloride 250 ML 125 MG IV ×2 (01:12→22:01)
[2024-05-06] MEDS: Enoxaparin Sodium 40 MG/0.4 ML SYRINGE SUBCUT ×2 (01:26→21:57)
[2024-05-06] MEDS: 0.9 % Sodium Chloride Flush 3 ML SYRINGE IVFLUSH ×4 (01:28→22:09)
[2024-05-06 02:41] LABS: Appearance Urine Clear; Color Urine Yellow; Glucose Urine UA >=1000 mg/dL (Negative); Leukocyte Esterase Urine Negative (Negative); Nitrite Urine Negative (Negative); PH 5.5 (5.0-9.0); Specific Gravity - Urine >= 1.030 (1.005-1.025); UMIC TRIGGER UACC YES; Urine Blood Negative (Negative); Urine Ketones Trace mg/dL (Negative); Urine Protein Trace mg/dL (Neg-Trace)
[2024-05-06 02:54] LABS: Bacteria Urine None Seen (None Seen); Hyaline Casts Urine 0-2 /LPF (0-2); RBC Urine 0-2 /HPF (0-2); Squamous Epithelial Cell Urine 0-2 /HPF (0-2); WBC Urine 0-5 /HPF (0-5)
[2024-05-06 06:48] LABS: MANUAL DIFF FLAG NO
[2024-05-06 06:59] LABS: Basophils Percent Auto 0.4 % (0-2); Eosinophils Absolute Auto 0.1 X10*3/uL (0.0-0.4); Eosinophils Percent Auto 0.5 % (0-4); Hematocrit 38.2 % (37.0-47.0); Hemoglobin 11.6 g/dl (12.0-16.0); Imm Gran Abs Auto 0.11 X10*3/uL (0.00-0.03); Lymphocytes Absolute Auto 0.6 X10*3/uL (1.2-4.9); Mean Corpuscular HGB Conc 30.4 g/dl (31.0-35.0); Mean Corpuscular Hemoglobin 28.1 pg (27.0-33.0); Mean Corpuscular Volume 92.5 fL (80.0-98.0); Mean Platelet Volume 9.4 fL (9.4-12.3); Monocytes Absolute Auto 0.2 X10*3/uL (0.1-1.2); Monocytes Percent Auto 2.1 % (2-11); Neutrophils Absolute Auto 9.5 x10*3/uL (2.0-8.3); Platelet Count 249 X10*3/uL (160-400); Red Blood Count 4.13 X10*6/uL (4.20-5.50); Red Cell Distribution Width 13.4 % (11.0-16.0); White Blood Count 10.6 X10*3/uL (4.8-10.8)
--- NOTE | 2024-05-06 07:00 | CA_ITS ---
Transthoracic Echocardiogram Patient (Last, First, Middle): Carolin Jimenez Jean Gender: Female Date of : 1950 Age: 73 Procedure Date: 05/06/2024 Procedure Type: Transthoracic Echocardiogram Location: S3E Height: 149.86 cm Weight: 84.82 kg BSA: 1.79 m2 Heart Rate: bpm BP: 164 / 72 mmHg Cart Driver: Referring MD: Chava Ken MD Talent Acquisition Consultant: Nasim Krueger MD Symptoms: ?CHF Study Quality: Adequate ECG Rhythm: Sinus Conclusions: - 1. Normal LV ejection fraction 60 65% with mild LVH with impaired relaxation filling pattern 2. Cardiac valvular Dopplers within normal limits 3. Normal RV systolic pressure 4. No gross pericardial effusion Findings Left Ventricle Normal left ventricular size and systolic function. There is mildly increased left ventricular wall thickness. The visually estimated ejection fraction is between 60-65%. Spectral Doppler is indicative of an impaired relaxation filling pattern. E/E prime ratio is between 8 and 15 consistent with indeterminate filling pressures. Right Ventricle Normal right ventricular cavity size and systolic function. Atria The left atrium is normal in size. Interatrial shunt cannot be excluded. The right atrium is normal in size. Aortic Valve The aortic valve was not well visualized. There is no aortic valve stenosis. There is trace (trivial) aortic valve regurgitation. Mitral Valve Normal mitral valve structure and function. There is trace mitral valve regurgitation. There is no mitral valve stenosis. Pulmonic Valve The pulmonic valve was not well visualized. Tricuspid Valve Likely normal tricuspid valve structure and function. There is trace tricuspid valve regurgitation. The right ventricular systolic pressure is normal. The right ventricular systolic pressure is 21 mmHg. Normal right atrial pressure. There is no evidence of pulmonary hypertension. Great Vessels All visible segments of the aorta are normal in size. The pulmonary artery was not well visualized. Venous The inferior vena cava is normal in size and collapses greater than 50% with inspiration. Pericardium/Pleural There is no evidence of pericardial effusion. Prior Study Comparison No prior study available for comparison. Measurements 2D Linear Measurements IVSd: 1.30 0.6-0.9/0.6-1.0 cm LVIDd: 4.13 3.9-5.3/4.2-5.9 cm LVIDd Index: 2.31 2.4-3.2/2.2-3.1 cm/m2 LVIDs: 2.62 2.0-3.6 cm LVPWd: 1.23 0.7-1.1 cm Ao Root: 3.50 2.1-3.5 cm LA Diam: 3.60 2.7-3.8/3.0-4.0 cm LAIDs Index: 2.01 1.5-2.3 cm/m2 LV Mass: 233.96 67-162/88-224 g LV Mass Index: 130.70 43-95/49-115 g/m2 LVOT Diam: 2.10 3.0+(-)1.3 cm Mitral Valve MV Pk E: 0.77 MV PK A: 1.01 MV Decel Time: 101.00 E/A: 0.80 E'Lateral: 6.64 E'Medial: 5.11 E/E' Med: 15.10 E/E' Lat: 11.60 PHT: 30.00 MVA PHT: 7.33 Decel [place]: 7.60 Aortic Valve AoV Pk Jay: 1.69 AoV Mn Jay: 1.13 AoV VTI: 0.40 AoV Pk Grad: 11.00 Aov Mn Grad: 6.00 FABIO Cont.VTI: 2.25 LVOT LVOT Pk Jay: 1.15 LVOT Mn Jay: 0.72 LVOT VTI: 0.26 LVOT Pk Grad: 5.00 LVOT Mn Grad: 3.00 LVOT Diam: 2.10 LVOT Area: 3.46 Diastolic Function MV Pk E: 0.77 MV Pk A: 1.01 E/A: 0.80 E'Medial: 5.11 E/E' Med: 15.10 E' Laterial: 6.64 E/E' Lat: 11.60 Right Ventricle TAPSE (mm): 31.00 TVS' Jay: 17.00 Tricuspid Valve TR Pk Jay: 2.15 TR Pk Grad: 18.00 RA Press: 3.00 RVSP: 21.00 Great Vessels Aorta Ao Root-2D: 3.50 2.0-3.7 cm Ao Asc: 3.50 2.1-3.4 cm Pulmonary Valve PV Pk Jay: 1.12 Peak PV Grad: 5.00 Updated in Other Vendor System with Status of Final Nasim Krueger MD electronically signed on 05/06/2024 5:14:10 PM with status of Final
[2024-05-06 07:26] LABS: Anion Gap 13 (12-20); Blood Urea Nitrogen 20 mg/dL (9-16); Calcium 10.4 mg/dL (8.4-10.2); Carbon Dioxide 33 mmol/L (22-29); Chloride 98 mmol/L (96-108); Creatinine Clr Calc Pharmacy 62.6; Estimated Glomerular Filt Rate > 60; Potassium 4.6 mmol/L (3.3-5.1); Sodium 139 mmol/L (135-145)
[2024-05-06 07:28] LABS: Glucose Random 376 mg/dL (60-115)
[2024-05-06 07:40] LABS: Estimated Average Glucose 183 mg/dL
--- NOTE | 2024-05-06 07:57 | PC.RT ---
pt does not want any nebulizer treatment. pt does take trelegy and albuterol mdi at home
[2024-05-06] MEDS: predniSONE 20 MG TABLET 40 MG PO (07:58)
--- NOTE | 2024-05-06 08:42 | PHA.MEDREC ---
Pharmacy Consult ? Medication Reconciliation Pharmacy has completed the medication reconciliation. Spoke to patient and confirmed medication list. Patient takes azithromycin 250 mg 3x/week on saturday, saturday and saturday. She takes 1/2 tablet of levothyroxine 75 mcg daily, omeprazole 40 mg daily and zolpidem 10 mg at bedtime as needed. She no longer takes fluconazole, nitroglycerin, pantoprazole nor prednisone at home. Last dose of medication was yesterday.
--- NOTE | 2024-05-06 09:25 | MHC.CM.PN ---
IMM DELIVERED PT LIVES ALONE. PT IS INDEPENDENT WITH MOBILITY. +DRIVES. PT HAS HOME 02 AT 2-3 L VIA [employer]. PT HAS HOUSEKEEPING SVCES ONLY. +HCP (COPY AT HOME, HCP/FRIEND MARIO ALBERTO WILL BRING IN COPY) PCP DP: HOME, NO SERVICES IS THE GOAL. PT IS OPEN TO [facility] IF RECOMMENDED, PT HAS NO PREFERENCE TO AGENCY. PT HAS OWN RIDE HOME. CM WILL CONTINUE TO FOLLOW FOR ANY CHANGE TO DC PLAN/NEEDS
[2024-05-06] MEDS: Insulin Glargine,Hum.rec.anlog 100 UNIT/ML 10 ML VIAL 15 UNIT SUBCUT ×2 (09:48→22:00)
[2024-05-06] MEDS: Ascorbic Acid 500 MG TABLET PO (09:48)
[2024-05-06] MEDS: lisinopriL 40 MG TABLET PO (09:48)
[2024-05-06] MEDS: Bisoprolol Fumarate 5 MG TABLET PO (09:48)
[2024-05-06] MEDS: Cholecalciferol (Vitamin D3) 25 MCG TABLET PO (09:48)
[2024-05-06] MEDS: Aspirin Enteric Coated 81 MG TABLET.DR PO (09:48)
[2024-05-06] MEDS: Multivitamin TABLET 1 TAB PO (09:48)
[2024-05-06] MEDS: Omeprazole 40 MG CAPSULE.DR PO (10:27)
--- NOTE | 2024-05-06 10:42 | P.PNIM_ITS ---
Subjective Subjective Date of Service: 05/06/24 Interval History: still sob noted to have hyperglycemia Physical Exam 2 Vital Signs: Vital Signs: Last Vital Signs Temp 98.3 F 05/06/24 08:00 Pulse 84 05/06/24 08:00 Resp 20 05/06/24 08:00 BP 164/72 H 05/06/24 09:48 Pulse Ox 90 L 05/06/24 08:00 O2 Del Method Nasal Cannula 05/06/24 08:00 O2 Flow Rate 4 05/06/24 08:00 BMI result Body Mass Index 37.8 General: AO X 3, no acute distress Resp: Crackles without wheezing bilateral, no accessory muscles used CVS: S1,S2,RRR, trace edema GI: soft, non tender, non distended Neuro: motor grossly intact, alert Psych: appropriate affect, appropriate insight Objective Data Active Medications Acetaminophen (Acetaminophen 325 Mg Tablet) 650 mg PO Q6H PRN PRN Reason: Pain, Mild (Pain Scale 1-3), fever or headache Albuterol/Ipratropium (Albuterol/Iprat 2.5/0.5mg 3 Ml Ampul.Neb) 3 ml INHALE Q4H PRN PRN Reason: Shortness of Breath/Wheezing Albuterol/Ipratropium (Albuterol/Iprat 2.5/0.5mg 3 Ml Ampul.Neb) 3 ml INHALE RQ4H WHILE AWAKE PRN PRN Reason: sob Ascorbic Acid (Ascorbic Acid 500 Mg Tablet) 500 mg PO DAILY [facility] [place] Last Admin: 05/06/24 09:48 Dose: 500 mg Documented By: MICK Aspirin (Aspirin Enteric Coated 81 Mg Tablet.Dr) 81 mg PO DAILY [facility] [place] Last Admin: 05/06/24 09:48 Dose: 81 mg Documented By: MICK Atorvastatin Calcium (Atorvastatin Calcium 80 Mg Tablet) 80 mg PO BEDTIME [facility] [place] Benzonatate (Benzonatate 100 Mg Capsule) 100 mg PO TID PRN PRN Reason: Cough Bisoprolol Fumarate (Bisoprolol Fumarate 5 Mg Tablet) 5 mg PO DAILY [facility] [place] Last Admin: 05/06/24 09:48 Dose: 5 mg Documented By: MICK Calcium Carbonate (Calcium Carbonate 750 Mg Tab.Chew) 750 mg PO Q4H PRN PRN Reason: Heartburn Ceftriaxone Sodium (Ceftriaxone Sodium 1 Gm Vial) 1 gm IVPUSH Q24H [facility] [place] Last Admin: 05/06/24 01:27 Dose: Not Given Documented By: SHADY Non-Admin Reason: Duplicate Order Enoxaparin Sodium (Enoxaparin Sodium 40 Mg/0.4 Ml Syringe) 40 mg SUBCUT BEDTIME [facility] [place] Last Admin: 05/06/24 01:26 Dose: 40 mg Documented By: SHADY Fluticasone/Umeclidinium/Vilanterol (Fluticasone/Umeclidinium/Vilanterol 100/62.5/25 Blst.W.Dev) 1 puff INHALE RDAILY [facility] [place] Glucose (Glucose Gel 15 Gm Gel..Gram.) 15 gm PO Q15M PRN; Protocol PRN Reason: per Hypoglycemia Standing Ord. Azithromycin 500 mg/ Sodium (Chloride) 250 mls @ 125 mls/hr IV Q24H [facility] [place] Last Infusion: 05/06/24 03:23 Dose: Infused Documented By: FACUNDO Dextrose (D10) 250 mls @ 750 mls/hr IV Q15M PRN; Protocol PRN Reason: per Hypoglycemia Standing Ord. Insulin Glargine (Insulin Glargine,Hum.Rec.Anlog 100 Unit/Ml 10 Ml Vial) 15 unit SUBCUT BEDTIME [facility] [place] Last Admin: 05/06/24 09:48 Dose: 15 unit Documented By: MICK Insulin Human Lispro (Insulin Lispro 100 Unit/Ml 3 Ml Vial) 0 unit SUBCUT QIDACHS [facility] [place]; Protocol Levothyroxine Sodium (Levothyroxine Sodium 75 Mcg Tablet) 37.5 mcg PO DAILY@0600 [facility] [place] Lisinopril (Lisinopril 40 Mg Tablet) 40 mg PO DAILY [facility] [place]; Protocol Last Admin: 05/06/24 09:48 Dose: 40 mg Documented By: MICK Magnesium Hydroxide (Milk Of Magnesia 30 Ml Oral.Susp) 30 ml PO DAILY PRN PRN Reason: Constipation Melatonin (Melatonin 3 Mg Tablet) 6 mg PO BEDTIME PRN PRN Reason: Insomnia Multivitamins/Vitamin C (Multivitamin Tablet) 1 tab PO DAILY [facility] [place] Last Admin: 05/06/24 09:48 Dose: 1 tab Documented By: MICK Omeprazole (Omeprazole 40 Mg Capsule.) 40 mg PO DAILY@0630 [facility] [place] Ondansetron HCl (Ondansetron Hcl 4 Mg/2 Ml Vial) 4 mg IVPUSH Q8H PRN PRN Reason: Nausea and Vomiting Prednisone (Prednisone 20 Mg Tablet) 40 mg PO DAILY [facility] [place] Last Admin: 05/06/24 07:58 Dose: 40 mg Documented By: MICK Sodium Chloride (0.9 % Sodium Chloride Flush 3 Ml Syringe) 3 ml IVFLUSH QSHIFT [facility] [place] Last Admin: 05/06/24 07:58 Dose: 3 ml Documented By: MICK Vitamin D (Cholecalciferol (Vitamin D3) 25 Mcg Tablet) 25 mcg PO DAILY [facility] [place] Last Admin: 05/06/24 09:48 Dose: 25 mcg Documented By: MICK Zolpidem Tartrate (Zolpidem Tartrate 5 Mg Tablet) 10 mg PO BEDTIME PRN PRN Reason: Sleep Labs 05/06/24 06:06 05/06/24 06:06 Labs: Laboratory Results - last 24 hr 05/05/24 05/05/24 05/06/24 16:33 16:42 00:27 MCV 92.3 MCH 28.1 MCHC 30.5 L RDW 13.4 Plt Count 238 MPV 8.9 L Immature Gran % (Auto) 0.7 H Neut % (Auto) 63.2 Lymph % (Auto) 15.8 L [place] % (Auto) 12.7 H Eos % (Auto) 7.2 H Baso % (Auto) 0.4 Lymph # (Auto) 1.8 [place] # (Auto) 1.4 H Eos # (Auto) 0.8 H Baso # (Auto) 0.0 Abs Immat Gran (auto) 0.08 H Absolute Neuts (auto) 7.1 Absolute Nucleated RBC 0.000 Nucleated RBC % (auto) 0.0 PT 13.3 H INR 1.1 APTT 27.3 VBG pH 7.43 VBG pCO2 65 VBG pO2 45 VBG HCO3 44 H VBG O2 Saturation 80.0 VBG Base Excess 16.4 Anion Gap 10 L Estim Creat Clear Calc 75.1 Estimated GFR > 60 Random Glucose 241 H Estimat Average Glucose Hemoglobin A1c % Lactic Acid 1.5 Calcium 9.7 D Magnesium 2.1 Total Bilirubin 0.4 Direct Bilirubin 0.1 AST 12 ALT 14 Alkaline Phosphatase 88 Troponin I High Sens < 2.7 B-Natriuretic Peptide 22 Total Protein 6.6 Albumin 3.5 Urine Color Urine Appearance Urine pH Ur Specific [place] Urine Protein Urine Glucose (UA) Urine Ketones Urine Blood Urine Nitrite Ur Leukocyte Esterase Urine RBC Urine WBC Ur Squamous Epith Cells Urine Bacteria Hyaline Casts Influenza Type A (PCR) NEGATIVE Influenza Type B (PCR) NEGATIVE RSV RNA Qual (PCR) NEGATIVE SARS-CoV-2 RNA (RT-PCR) NEGATIVE 05/06/24 05/06/24 02:31 06:06 MCV 92.5 MCH 28.1 MCHC 30.4 L RDW 13.4 Plt Count 249 MPV 9.4 Immature Gran % (Auto) 1.0 H Neut % (Auto) 90.0 H Lymph % (Auto) 6.0 L [place] % (Auto) 2.1 Eos % (Auto) 0.5 Baso % (Auto) 0.4 Lymph # (Auto) 0.6 L [place] # (Auto) 0.2 Eos # (Auto) 0.1 Baso # (Auto) 0.0 Abs Immat Gran (auto) 0.11 H Absolute Neuts (auto) 9.5 H Absolute Nucleated RBC 0.000 Nucleated RBC % (auto) 0.0 PT INR APTT VBG pH VBG pCO2 VBG pO2 VBG HCO3 VBG O2 Saturation VBG Base Excess Anion Gap 13 Estim Creat Clear Calc 62.6 Estimated GFR > 60 Random Glucose 376 H* Estimat Average Glucose 183 Hemoglobin A1c % 8.0 H Lactic Acid Calcium 10.4 H D Magnesium Total Bilirubin Direct Bilirubin AST ALT Alkaline Phosphatase Troponin I High Sens B-Natriuretic Peptide Total Protein Albumin Urine Color Yellow Urine Appearance Clear Urine pH 5.5 Ur Specific [place] >= 1.030 H Urine Protein Trace Urine Glucose (UA) >=1000 H Urine Ketones Trace Urine Blood Negative Urine Nitrite Negative Ur Leukocyte Esterase Negative Urine RBC 0-2 Urine WBC 0-5 Ur Squamous Epith Cells 0-2 Urine Bacteria None Seen Hyaline Casts 0-2 Influenza Type A (PCR) Influenza Type B (PCR) RSV RNA Qual (PCR) SARS-CoV-2 RNA (RT-PCR) Assessment and Plan (1) Chronic respiratory failure: Status: Acute Plan 73F PMH chronic hypoxic respiratory failure due to COPD on 4 L home O2, hypothyroid, hypertension, GERD, obesity, diet-controlled diabetes presented with shortness of breath Acute on chronic hypoxic respiratory failure, multifactorial COPD with acute decompensation - continue prednisone, bronchodilators Multifocal pneumonia - continue Rocephin and azithromycin Acute unspecified CHF - check echo, IV Lasix Diabetes with hyperglycemia Patient reports being told that she had hemoglobin A1c of 7.5 and was managing with diet control Currently A1c 8 with hyperglycemia We will use basal bolus insulin while in hospital, likely require oral meds on discharge Hypothyroid Levothyroxine Hypertension Continue bisoprolol, lisinopril Obesity Weight loss recommended GERD Omeprazole DVT prophylaxis with Lovenox Full Code reason for continued hospitalization: Still short of breath Quality Stroke Does the patient have a stroke diagnosis?: No VTE Prior VTE?: No VTE Risk Level:: Medical - moderate - high VTE Device Contraindication: Treatment Not Indicated VTE Drug Contraindication: N/A - Med Ordered
[2024-05-06] MEDS: Fluticasone/Umeclidinium/Vilanterol 100/62.5/25 BLST.W.DEV 1 PUFF INHALE (11:16)
[2024-05-06] MEDS: Furosemide 40 MG/4 ML VIAL IVPUSH ×2 (11:16→18:04)
[2024-05-06 11:36] LABS: Glucose, Whole Blood 422 mg/dL (60-115)
[2024-05-06] MEDS: Insulin Lispro 100 UNIT/ML 3 ML VIAL SUBCUT ×3 (11:59→21:58)
[2024-05-06] MEDS: Insulin Regular, Human 100 UNIT/ML 10 ML VIAL 10 UNIT IVPUSH (11:59)
[2024-05-06 16:30] LABS: Glucose, Whole Blood 327 mg/dL (60-115)
[2024-05-06 20:11] LABS: Glucose, Whole Blood 340 mg/dL (60-115)
[2024-05-06] MEDS: Atorvastatin Calcium 80 MG TABLET PO (21:57)
--- NOTE | 2024-05-06 23:00 | PC.NURSE ---
Pt ambulated to bathroom with standby assist, and desatted to 71% with O2 at 3L NC on portable oxygen tank. Pt sat down in bed and O2 went back up to 88%-91% slowly.
[2024-05-07] MEDS: cefTRIAXone sodium 1 GM VIAL IVPUSH ×2 (00:09→21:58)
[2024-05-07] MEDS: Levothyroxine Sodium 75 MCG TABLET 37.5 MCG PO (03:44)
[2024-05-07 04:00] VITALS: BP 126/78; PULSE 69; RESP 18; TEMP 36.5; O2SAT 93
[2024-05-07] MEDS: Omeprazole 40 MG CAPSULE.DR PO (05:54)
[2024-05-07 07:10] LABS: Hematocrit 37.3 % (37.0-47.0); Hemoglobin 11.7 g/dl (12.0-16.0); Mean Corpuscular HGB Conc 31.4 g/dl (31.0-35.0); Mean Corpuscular Hemoglobin 28.1 pg (27.0-33.0); Mean Corpuscular Volume 89.7 fL (80.0-98.0); Mean Platelet Volume 10.3 fL (9.4-12.3); Platelet Count 274 X10*3/uL (160-400); Red Blood Count 4.16 X10*6/uL (4.20-5.50); Red Cell Distribution Width 13.2 % (11.0-16.0); White Blood Count 16.5 X10*3/uL (4.8-10.8)
[2024-05-07 07:27] VITALS: BP 168/74; PULSE 71; RESP 18; TEMP 36.1; O2SAT 91
[2024-05-07 07:34] LABS: Glucose, Whole Blood 244 mg/dL (60-115)
[2024-05-07] MEDS: Fluticasone/Umeclidinium/Vilanterol 100/62.5/25 BLST.W.DEV 1 PUFF INHALE (08:13)
[2024-05-07 08:15] LABS: Anion Gap 15 (12-20); Blood Urea Nitrogen 27 mg/dL (9-16); Calcium 10.5 mg/dL (8.4-10.2); Carbon Dioxide 36 mmol/L (22-29); Chloride 93 mmol/L (96-108); Estimated Glomerular Filt Rate > 60; Glucose Fasting 277 mg/dL (60-99); Magnesium 1.9 mg/dL (1.6-2.6); Potassium 4.3 mmol/L (3.3-5.1); Sodium 140 mmol/L (135-145)
[2024-05-07 08:18] VITALS: PULSE 71; RESP 18
[2024-05-07] MEDS: Insulin Lispro 100 UNIT/ML 3 ML VIAL SUBCUT ×4 (08:31→20:50)
[2024-05-07] MEDS: 0.9 % Sodium Chloride Flush 3 ML SYRINGE IVFLUSH ×3 (08:32→20:51)
[2024-05-07] MEDS: predniSONE 20 MG TABLET 40 MG PO (08:32)
[2024-05-07] MEDS: Bisoprolol Fumarate 5 MG TABLET PO (08:32)
[2024-05-07] MEDS: Multivitamin TABLET 1 TAB PO (08:32)
[2024-05-07] MEDS: Cholecalciferol (Vitamin D3) 25 MCG TABLET PO (08:32)
[2024-05-07] MEDS: Aspirin Enteric Coated 81 MG TABLET.DR PO (08:32)
[2024-05-07 08:33] VITALS: BP 168/74
[2024-05-07] MEDS: Ascorbic Acid 500 MG TABLET PO (08:33)
[2024-05-07] MEDS: lisinopriL 40 MG TABLET PO (08:33)
[2024-05-07] MEDS: Benzonatate 100 MG CAPSULE PO ×2 (08:58→19:15)
--- NOTE | 2024-05-07 09:26 | P.PNIM_ITS ---
Subjective Subjective Date of Service: 05/07/24 Interval History: still sob Physical Exam 2 Vital Signs: Vital Signs: Last Vital Signs Temp 96.9 F 05/07/24 07:27 Pulse 71 05/07/24 08:18 Resp 18 05/07/24 08:18 BP 168/74 H 05/07/24 08:33 Pulse Ox 91 L 05/07/24 07:27 O2 Del Method Nasal Cannula 05/07/24 07:27 O2 Flow Rate 3 05/07/24 07:27 BMI result Body Mass Index 37.8 General: AO X 3, no acute distress Resp: Crackles resolved, no wheezing bilateral, no accessory muscles used CVS: S1,S2,RRR, trace edema GI: soft, non tender, non distended Neuro: motor grossly intact, alert Psych: appropriate affect, appropriate insight Objective Data Active Medications Acetaminophen (Acetaminophen 325 Mg Tablet) 650 mg PO Q6H PRN PRN Reason: Pain, Mild (Pain Scale 1-3), fever or headache Albuterol/Ipratropium (Albuterol/Iprat 2.5/0.5mg 3 Ml Ampul.Neb) 3 ml INHALE Q4H PRN PRN Reason: Shortness of Breath/Wheezing Albuterol/Ipratropium (Albuterol/Iprat 2.5/0.5mg 3 Ml Ampul.Neb) 3 ml INHALE RQ4H WHILE AWAKE PRN PRN Reason: sob Ascorbic Acid (Ascorbic Acid 500 Mg Tablet) 500 mg PO DAILY [facility] Last Admin: 05/07/24 08:33 Dose: 500 mg Documented By: MICK Aspirin (Aspirin Enteric Coated 81 Mg Tablet.) 81 mg PO DAILY [facility] Last Admin: 05/07/24 08:32 Dose: 81 mg Documented By: MICK Atorvastatin Calcium (Atorvastatin Calcium 80 Mg Tablet) 80 mg PO BEDTIME [facility] Last Admin: 05/06/24 21:57 Dose: 80 mg Documented By: FACUNDO Benzonatate (Benzonatate 100 Mg Capsule) 100 mg PO TID PRN PRN Reason: Cough Last Admin: 05/07/24 08:58 Dose: 100 mg Documented By: MICK Bisoprolol Fumarate (Bisoprolol Fumarate 5 Mg Tablet) 5 mg PO DAILY [facility] Last Admin: 05/07/24 08:32 Dose: 5 mg Documented By: MICK Calcium Carbonate (Calcium Carbonate 750 Mg Tab.Chew) 750 mg PO Q4H PRN PRN Reason: Heartburn Ceftriaxone Sodium (Ceftriaxone Sodium 1 Gm Vial) 1 gm IVPUSH Q24H [facility] Last Admin: 05/07/24 00:09 Dose: 1 gm Documented By: FACUNDO Enoxaparin Sodium (Enoxaparin Sodium 40 Mg/0.4 Ml Syringe) 40 mg SUBCUT BEDTIME [facility] Last Admin: 05/06/24 21:57 Dose: 40 mg Documented By: FACUNDO Fluticasone/Umeclidinium/Vilanterol (Fluticasone/Umeclidinium/Vilanterol 100/62.5/25 Blst.W.Dev) 1 puff INHALE RDAILY [facility] Last Admin: 05/07/24 08:13 Dose: 1 puff Documented By: BRITTNEY Glucose (Glucose Gel 15 Gm Gel..Gram.) 15 gm PO Q15M PRN; Protocol PRN Reason: per Hypoglycemia Standing Ord. Azithromycin 500 mg/ Sodium (Chloride) 250 mls @ 125 mls/hr IV Q24H [facility] Last Infusion: 05/07/24 00:08 Dose: Infused Documented By: FACUNDO Dextrose (D10) 250 mls @ 750 mls/hr IV Q15M PRN; Protocol PRN Reason: per Hypoglycemia Standing Ord. Insulin Glargine (Insulin Glargine,Hum.Rec.Anlog 100 Unit/Ml 10 Ml Vial) 15 unit SUBCUT BEDTIME [facility] Last Admin: 05/06/24 22:00 Dose: 15 unit Documented By: FACUNDO Insulin Human Lispro (Insulin Lispro 100 Unit/Ml 3 Ml Vial) 0 unit SUBCUT QIDACHS [facility]; Protocol Last Admin: 05/07/24 08:31 Dose: 4 unit Documented By: MICK Levothyroxine Sodium (Levothyroxine Sodium 75 Mcg Tablet) 37.5 mcg PO DAILY@0600 [facility] Last Admin: 05/07/24 03:44 Dose: 37.5 mcg Documented By: FACUNDO Comments: per pt's request to have medication early. Lisinopril (Lisinopril 40 Mg Tablet) 40 mg PO DAILY [facility]; Protocol Last Admin: 05/07/24 08:33 Dose: 40 mg Documented By: MICK Magnesium Hydroxide (Milk Of Magnesia 30 Ml Oral.Susp) 30 ml PO DAILY PRN PRN Reason: Constipation Melatonin (Melatonin 3 Mg Tablet) 6 mg PO BEDTIME PRN PRN Reason: Insomnia Multivitamins/Vitamin C (Multivitamin Tablet) 1 tab PO DAILY [facility] Last Admin: 05/07/24 08:32 Dose: 1 tab Documented By: MICK Omeprazole (Omeprazole 40 Mg Capsule.) 40 mg PO DAILY@0630 [facility] Last Admin: 05/07/24 05:54 Dose: 40 mg Documented By: FACUNDO Ondansetron HCl (Ondansetron Hcl 4 Mg/2 Ml Vial) 4 mg IVPUSH Q8H PRN PRN Reason: Nausea and Vomiting Prednisone (Prednisone 20 Mg Tablet) 40 mg PO DAILY [facility] Last Admin: 05/07/24 08:32 Dose: 40 mg Documented By: MICK Sodium Chloride (0.9 % Sodium Chloride Flush 3 Ml Syringe) 3 ml IVFLUSH QSHIFT [facility] Last Admin: 05/07/24 08:32 Dose: 3 ml Documented By: MICK Vitamin D (Cholecalciferol (Vitamin D3) 25 Mcg Tablet) 25 mcg PO DAILY [facility] Last Admin: 05/07/24 08:32 Dose: 25 mcg Documented By: MICK Zolpidem Tartrate (Zolpidem Tartrate 5 Mg Tablet) 10 mg PO BEDTIME PRN PRN Reason: Sleep Labs 05/07/24 06:00 05/07/24 07:41 Labs: Laboratory Results - last 24 hr 05/06/24 05/06/24 05/06/24 11:30 16:26 20:05 MCV MCH MCHC RDW Plt Count MPV Absolute Nucleated RBC Nucleated RBC % (auto) Anion Gap Estim Creat Clear Calc Estimated GFR POC Glucose 422 H* 327 H 340 H Fasting Glucose Calcium Magnesium 05/07/24 05/07/24 05/07/24 06:00 07:26 07:41 MCV 89.7 MCH 28.1 MCHC 31.4 RDW 13.2 Plt Count 274 MPV 10.3 Absolute Nucleated RBC 0.000 Nucleated RBC % (auto) 0.0 Anion Gap 15 Estim Creat Clear Calc 65.0 Estimated GFR > 60 POC Glucose 244 H Fasting Glucose 277 H Calcium 10.5 H Magnesium 1.9 Microbiology Microbiology Results: Microbiology 05/06/24 00:27 Blood Culture - Preliminary Blood - Venous No growth after 24 hours. 05/05/24 23:30 Blood Culture - Preliminary Blood - Venous No growth after 24 hours. Assessment and Plan (1) Chronic respiratory failure: Status: Acute Plan 73F PMH chronic hypoxic respiratory failure due to COPD on 4 L home O2, hypothyroid, hypertension, GERD, obesity, diet-controlled diabetes presented with shortness of breath Acute on chronic hypoxic respiratory failure, multifactorial COPD with acute decompensation - continue prednisone, bronchodilators Multifocal pneumonia - continue Rocephin and azithromycin Acute on chronic diastolic CHF - diuresed well, no appears euvolemic Diabetes with hyperglycemia Patient reports being told that she had hemoglobin A1c of 7.5 and was managing with diet control Currently A1c 8 with hyperglycemia We will use basal bolus insulin while in hospital, likely require oral meds on discharge Hypothyroid Levothyroxine Hypertension Continue bisoprolol, lisinopril Obesity Weight loss recommended GERD Omeprazole DVT prophylaxis with Lovenox Full Code reason for continued hospitalization: Still short of breath Quality Stroke Does the patient have a stroke diagnosis?: No VTE Prior VTE?: No VTE Risk Level:: Medical - moderate - high VTE Device Contraindication: Treatment Not Indicated VTE Drug Contraindication: N/A - Med Ordered
[2024-05-07 11:15] LABS: Glucose, Whole Blood 263 mg/dL (60-115)
[2024-05-07 15:45] VITALS: BP 153/82; PULSE 72; RESP 20; TEMP 36.1; O2SAT 92
[2024-05-07 16:12] LABS: Glucose, Whole Blood 296 mg/dL (60-115)
[2024-05-07 19:13] VITALS: BP 163/74; PULSE 78; RESP 20; TEMP 36.3; O2SAT 88
[2024-05-07 20:21] LABS: Glucose, Whole Blood 347 mg/dL (60-115)
[2024-05-07] MEDS: Atorvastatin Calcium 80 MG TABLET PO (20:49)
[2024-05-07] MEDS: Enoxaparin Sodium 40 MG/0.4 ML SYRINGE SUBCUT (20:49)
[2024-05-07] MEDS: Insulin Glargine,Hum.rec.anlog 100 UNIT/ML 10 ML VIAL 15 UNIT SUBCUT (20:50)
[2024-05-07] MEDS: Azithromycin 500 MG in 0.9 % Sodium Chloride 250 ML 125 MG IV (21:58)
[2024-05-08] VITALS (8 sets, daily range): BP systolic 152–184; BP diastolic 68–84; PULSE 65–82; RESP 18–19; TEMP 36–36.5; O2SAT 85–94
[2024-05-08] MEDS: Levothyroxine Sodium 75 MCG TABLET 37.5 MCG PO (04:49)
[2024-05-08] MEDS: Omeprazole 40 MG CAPSULE.DR PO (06:29)
[2024-05-08] MEDS: Benzonatate 100 MG CAPSULE PO ×2 (06:33→21:17)
[2024-05-08 07:16] LABS: Glucose, Whole Blood 166 mg/dL (60-115)
[2024-05-08 07:36] LABS: Hematocrit 38.6 % (37.0-47.0); Hemoglobin 12.1 g/dl (12.0-16.0); Mean Corpuscular HGB Conc 31.3 g/dl (31.0-35.0); Mean Corpuscular Hemoglobin 28.2 pg (27.0-33.0); Mean Platelet Volume 9.3 fL (9.4-12.3); Platelet Count 328 X10*3/uL (160-400); Red Blood Count 4.29 X10*6/uL (4.20-5.50); Red Cell Distribution Width 13.4 % (11.0-16.0); White Blood Count 13.8 X10*3/uL (4.8-10.8)
[2024-05-08] MEDS: Fluticasone/Umeclidinium/Vilanterol 100/62.5/25 BLST.W.DEV 1 PUFF INHALE (07:52)
[2024-05-08] MEDS: Insulin Lispro 100 UNIT/ML 3 ML VIAL SUBCUT ×4 (07:52→21:09)
[2024-05-08] MEDS: Bisoprolol Fumarate 5 MG TABLET PO (07:53)
[2024-05-08] MEDS: Multivitamin TABLET 1 TAB PO (07:53)
[2024-05-08] MEDS: predniSONE 20 MG TABLET 40 MG PO (07:53)
[2024-05-08] MEDS: Aspirin Enteric Coated 81 MG TABLET.DR PO (07:53)
[2024-05-08] MEDS: lisinopriL 40 MG TABLET PO (07:53)
[2024-05-08] MEDS: Ascorbic Acid 500 MG TABLET PO (07:53)
[2024-05-08] MEDS: Cholecalciferol (Vitamin D3) 25 MCG TABLET PO (07:53)
[2024-05-08] MEDS: 0.9 % Sodium Chloride Flush 3 ML SYRINGE IVFLUSH ×2 (07:58→16:44)
[2024-05-08 07:59] LABS: Alanine Aminotransferase 18 U/L (0-31); Albumin Level 3.6 g/dL (3.5-5.0); Alkaline Phosphatase 84 U/L (39-117); Anion Gap 12 (12-20); Aspartate Amino Transferase 10 U/L (5-31); Bilirubin Direct 0.1 mg/dL (0.0-0.5); Bilirubin Total 0.3 mg/dL (0.0-1.0); Blood Urea Nitrogen 25 mg/dL (9-16); Calcium 10.2 mg/dL (8.4-10.2); Carbon Dioxide 39 mmol/L (22-29); Chloride 94 mmol/L (96-108); Creatinine Clr Calc Pharmacy 72.8; Estimated Glomerular Filt Rate > 60; Glucose Fasting 188 mg/dL (60-99); Potassium 3.9 mmol/L (3.3-5.1); Sodium 141 mmol/L (135-145); Total Protein 6.7 g/dL (6.5-8.0)
--- NOTE | 2024-05-08 09:17 | P.PNIM_ITS ---
Subjective Subjective Date of Service: 05/08/24 Interval History: a bit better than yesterday Physical Exam 2 Vital Signs: Vital Signs: Last Vital Signs Temp 97.4 F 05/08/24 07:43 Pulse 82 05/08/24 07:54 Resp 18 05/08/24 07:54 BP 184/77 H 05/08/24 07:43 Pulse Ox 89 L 05/08/24 07:43 O2 Del Method Nasal Cannula 05/08/24 07:43 O2 Flow Rate 3 05/08/24 07:43 BMI result Body Mass Index 37.8 General: AO X 3, no acute distress Resp: Crackles resolved, no wheezing bilateral, no accessory muscles used CVS: S1,S2,RRR, trace edema GI: soft, non tender, non distended Neuro: motor grossly intact, alert Psych: appropriate affect, appropriate insight Objective Data Active Medications Acetaminophen (Acetaminophen 325 Mg Tablet) 650 mg PO Q6H PRN PRN Reason: Pain, Mild (Pain Scale 1-3), fever or headache Albuterol Sulfate (Albuterol Sulfate 90 Mcg 8 Gm Inhaler) 2 puff INHALE RQ4H PRN PRN Reason: sob Ascorbic Acid (Ascorbic Acid 500 Mg Tablet) 500 mg PO DAILY [facility] Last Admin: 05/08/24 07:53 Dose: 500 mg Documented By: CHRISTOPHER Aspirin (Aspirin Enteric Coated 81 Mg Tablet.) 81 mg PO DAILY [facility] Last Admin: 05/08/24 07:53 Dose: 81 mg Documented By: CHRISTOPHER Atorvastatin Calcium (Atorvastatin Calcium 80 Mg Tablet) 80 mg PO BEDTIME [facility] Last Admin: 05/07/24 20:49 Dose: 80 mg Documented By: ISABEL Benzonatate (Benzonatate 100 Mg Capsule) 100 mg PO TID PRN PRN Reason: Cough Last Admin: 05/08/24 06:33 Dose: 100 mg Documented By: DOE Bisoprolol Fumarate (Bisoprolol Fumarate 5 Mg Tablet) 5 mg PO DAILY [facility] Last Admin: 05/08/24 07:53 Dose: 5 mg Documented By: CHRISTOPHER Calcium Carbonate (Calcium Carbonate 750 Mg Tab.Chew) 750 mg PO Q4H PRN PRN Reason: Heartburn Ceftriaxone Sodium (Ceftriaxone Sodium 1 Gm Vial) 1 gm IVPUSH Q24H [facility] Last Admin: 05/07/24 21:58 Dose: 1 gm Documented By: ISABEL Enoxaparin Sodium (Enoxaparin Sodium 40 Mg/0.4 Ml Syringe) 40 mg SUBCUT BEDTIME [facility] Last Admin: 05/07/24 20:49 Dose: 40 mg Documented By: ISABEL Fluticasone/Umeclidinium/Vilanterol (Fluticasone/Umeclidinium/Vilanterol 100/62.5/25 Blst.W.Dev) 1 puff INHALE RDAILY [facility] Last Admin: 05/08/24 07:52 Dose: 1 puff Documented By: BRITTNEY Glucose (Glucose Gel 15 Gm Gel..Gram.) 15 gm PO Q15M PRN; Protocol PRN Reason: per Hypoglycemia Standing Ord. Azithromycin 500 mg/ Sodium (Chloride) 250 mls @ 125 mls/hr IV Q24H [facility] Last Infusion: 05/08/24 00:41 Dose: Infused Documented By: ODE Dextrose (D10) 250 mls @ 750 mls/hr IV Q15M PRN; Protocol PRN Reason: per Hypoglycemia Standing Ord. Insulin Glargine (Insulin Glargine,Hum.Rec.Anlog 100 Unit/Ml 10 Ml Vial) 15 unit SUBCUT BEDTIME [facility] Last Admin: 05/07/24 20:50 Dose: 15 unit Documented By: ISABEL Insulin Human Lispro (Insulin Lispro 100 Unit/Ml 3 Ml Vial) 0 unit SUBCUT QIDACHS [facility]; Protocol Last Admin: 05/08/24 07:52 Dose: 2 unit Documented By: CHRISTOPHER Levothyroxine Sodium (Levothyroxine Sodium 75 Mcg Tablet) 37.5 mcg PO DAILY@0600 [facility] Last Admin: 05/08/24 04:49 Dose: 37.5 mcg Documented By: DOE Lisinopril (Lisinopril 40 Mg Tablet) 40 mg PO DAILY [facility]; Protocol Last Admin: 05/08/24 07:53 Dose: 40 mg Documented By: CHRISTOPHER Magnesium Hydroxide (Milk Of Magnesia 30 Ml Oral.Susp) 30 ml PO DAILY PRN PRN Reason: Constipation Melatonin (Melatonin 3 Mg Tablet) 6 mg PO BEDTIME PRN PRN Reason: Insomnia Multivitamins/Vitamin C (Multivitamin Tablet) 1 tab PO DAILY [facility] Last Admin: 05/08/24 07:53 Dose: 1 tab Documented By: CHRISTOPHER Omeprazole (Omeprazole 40 Mg Capsule.Dr) 40 mg PO DAILY@0630 [facility] Last Admin: 05/08/24 06:29 Dose: 40 mg Documented By: DOE Ondansetron HCl (Ondansetron Hcl 4 Mg/2 Ml Vial) 4 mg IVPUSH Q8H PRN PRN Reason: Nausea and Vomiting Prednisone (Prednisone 20 Mg Tablet) 40 mg PO DAILY [facility] Last Admin: 05/08/24 07:53 Dose: 40 mg Documented By: CHRISTOPHER Sodium Chloride (0.9 % Sodium Chloride Flush 3 Ml Syringe) 3 ml IVFLUSH QSHIFT [facility] Last Admin: 05/08/24 07:58 Dose: 3 ml Documented By: CHRISTOPHER Vitamin D (Cholecalciferol (Vitamin D3) 25 Mcg Tablet) 25 mcg PO DAILY [facility] Last Admin: 05/08/24 07:53 Dose: 25 mcg Documented By: CHRISTOPHER Zolpidem Tartrate (Zolpidem Tartrate 5 Mg Tablet) 10 mg PO BEDTIME PRN PRN Reason: Sleep Labs 05/08/24 06:17 05/08/24 06:17 Labs: Laboratory Results - last 24 hr 05/07/24 05/07/24 05/07/24 11:06 16:04 20:05 MCV MCH MCHC RDW Plt Count MPV Absolute Nucleated RBC Nucleated RBC % (auto) Anion Gap Estim Creat Clear Calc Estimated GFR POC Glucose 263 H 296 H 347 H Fasting Glucose Calcium Total Bilirubin Direct Bilirubin AST ALT Alkaline Phosphatase Total Protein Albumin 05/08/24 05/08/24 06:17 07:03 MCV 90.0 MCH 28.2 MCHC 31.3 RDW 13.4 Plt Count 328 MPV 9.3 L Absolute Nucleated RBC 0.000 Nucleated RBC % (auto) 0.0 Anion Gap 12 Estim Creat Clear Calc 72.8 Estimated GFR > 60 POC Glucose 166 H Fasting Glucose 188 H Calcium 10.2 Total Bilirubin 0.3 Direct Bilirubin 0.1 AST 10 ALT 18 Alkaline Phosphatase 84 Total Protein 6.7 Albumin 3.6 Microbiology Microbiology Results: Microbiology 05/06/24 00:27 Blood Culture - Preliminary Blood - Venous No growth after 48 hours. 05/05/24 23:30 Blood Culture - Preliminary Blood - Venous No growth after 48 hours. Assessment and Plan (1) Chronic respiratory failure: Status: Acute Plan 73F PMH chronic hypoxic respiratory failure due to COPD on 4 L home O2, hypothyroid, hypertension, GERD, obesity, diet-controlled diabetes presented with shortness of breath Acute on chronic hypoxic respiratory failure, multifactorial COPD with acute decompensation - continue prednisone, bronchodilators Multifocal pneumonia - continue Rocephin and azithromycin Acute on chronic diastolic CHF - diuresed well, now appears euvolemic Diabetes with hyperglycemia Patient reports being told that she had hemoglobin A1c of 7.5 and was managing with diet control Currently A1c 8 with hyperglycemia We will use basal bolus insulin while in hospital, likely require oral meds on discharge Hypothyroid Levothyroxine Hypertension Continue bisoprolol, lisinopril Obesity Weight loss recommended GERD Omeprazole DVT prophylaxis with Lovenox Full Code reason for continued hospitalization: Still short of breath Quality Stroke Does the patient have a stroke diagnosis?: No VTE Prior VTE?: No VTE Risk Level:: Medical - moderate - high VTE Device Contraindication: Treatment Not Indicated VTE Drug Contraindication: N/A - Med Ordered
[2024-05-08 11:20] LABS: Glucose, Whole Blood 210 mg/dL (60-115)
[2024-05-08 16:05] LABS: Glucose, Whole Blood 349 mg/dL (60-115)
--- NOTE | 2024-05-08 16:10 | MHC.CM.PN ---
Addendum entered by Jeanette Bearden 05/08/24 16:11: [facility] WILL ATTEMPT TO MAKE A BED FOR THIS PT EXPECTED DC TOMORROW Original Note: PT RECOMMENDING PULMONARY REHAB CM SPOKE TO PT AND HER DAUGHTER, [facility]ERR[facility] REFERRALS OUT
[2024-05-08 20:59] LABS: Glucose, Whole Blood 353 mg/dL (60-115)
[2024-05-08] MEDS: Insulin Glargine,Hum.rec.anlog 100 UNIT/ML 10 ML VIAL 15 UNIT SUBCUT (21:10)
[2024-05-08] MEDS: Atorvastatin Calcium 80 MG TABLET PO (21:10)
[2024-05-08] MEDS: Enoxaparin Sodium 40 MG/0.4 ML SYRINGE SUBCUT (21:10)
[2024-05-08] MEDS: cefTRIAXone sodium 1 GM VIAL IVPUSH (22:04)
[2024-05-08] MEDS: Azithromycin 500 MG in 0.9 % Sodium Chloride 250 ML 125 MG IV (22:09)
[2024-05-09] MEDS: 0.9 % Sodium Chloride Flush 3 ML SYRINGE IVFLUSH ×2 (00:12→07:41)
[2024-05-09 02:16] VITALS: BP 169/79; PULSE 68; RESP 19; TEMP 36.5; O2SAT 90
[2024-05-09 04:15] VITALS: BP 151/80; PULSE 72
[2024-05-09] MEDS: Levothyroxine Sodium 75 MCG TABLET 37.5 MCG PO (04:18)
[2024-05-09] MEDS: Omeprazole 40 MG CAPSULE.DR PO (05:58)
[2024-05-09 07:24] LABS: Glucose, Whole Blood 183 mg/dL (60-115)
[2024-05-09] MEDS: Insulin Lispro 100 UNIT/ML 3 ML VIAL SUBCUT ×2 (07:36→11:31)
[2024-05-09] MEDS: Aspirin Enteric Coated 81 MG TABLET.DR PO (07:37)
[2024-05-09] MEDS: Bisoprolol Fumarate 5 MG TABLET PO (07:37)
[2024-05-09] MEDS: Multivitamin TABLET 1 TAB PO (07:37)
[2024-05-09] MEDS: lisinopriL 40 MG TABLET PO (07:37)
[2024-05-09] MEDS: Ascorbic Acid 500 MG TABLET PO (07:37)
[2024-05-09] MEDS: Cholecalciferol (Vitamin D3) 25 MCG TABLET PO (07:38)
[2024-05-09] MEDS: predniSONE 20 MG TABLET 40 MG PO (07:38)
[2024-05-09 07:46] VITALS: BP 156/72; PULSE 72; RESP 18; TEMP 36.2; O2SAT 91
[2024-05-09] MEDS: Fluticasone/Umeclidinium/Vilanterol 100/62.5/25 BLST.W.DEV 1 PUFF INHALE (08:03)
[2024-05-09 08:04] VITALS: PULSE 72; O2SAT 84
--- NOTE | 2024-05-09 08:33 | PM.DS ---
DS: Providers Provider Date of Service: 05/09/24 Date of admission: 05/06/24 07:54 Date of discharge: 05/09/24 Primary care physician: Ivett Blas MD DS: Diagnosis Discharge Diagnosis (1) Chronic respiratory failure: Status: Acute DS: Summary Hospital Course Hospital Course: from initial hpi: 73-year-old female with pertinent history of chronic hypoxemic respiratory failure due to severe COPD on 4 L supplemental oxygen, hypothyroidism, hypertension, gastroesophageal reflux disease who presents to the emergency department for evaluation of dyspnea. Patient states her symptoms started 2 weeks prior to presentation. She has been having dyspnea which is worse with exertion. Also has cough with minimal sputum production and wheezing. 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 Patient's sats dropping to the 60s on ambulation on her baseline supplemental oxygen. No fever, chills, chest pain, palpitations, abdominal pain, changes in urinary or bowel habits. In the emergency department, imaging with left-sided pneumonia. Patient given IV antibiotics, steroids and breathing treatment in the ER. hospital course: Patient was admitted for acute on chronic hypoxic respiratory failure multifactorial due to COPD with acute decompensation, multifocal pneumonia and acute on chronic diastolic CHF. For COPD exacerbation was treated with prednisone and will continue 2 more days on discharge, he was also given bronchodilators. For multifocal pneumonia was treated with ceftriaxone azithromycin and on discharge will continue 5 more days of levofloxacin. For acute on chronic diastolic CHF received IV Lasix diuresed well, echo with normal EF and diastolic dysfunction. Patient's respiratory status is now close to baseline and is back on 2-4 L home O2. Due to deconditioning was seen by physical therapy recommended short-term rehab to which patient will be discharged she was expected require less than 30 days. For diabetes with hyperglycemia patient reported that previous A1c was 7.5 and was managing with diet control, currently hemoglobin A1c was 8, was treated with insulin while in hospital, on discharge will be starting metformin. For hypothyroidism was continue levothyroxine. For hypertension was continued on bisoprolol and lisinopril. For obesity weight loss recommended. For GERD was continued on omeprazole. Time Attestation Discharge Coordination Time (in mins): 33 Quality: Safe Use of Opioids Does Pt have an Active Cancer Diagnosis on the Problem List?: No Quality: Stroke Does the patient have a stroke diagnosis?: No Physical Exam Vital Signs: Vital Signs: Last Vital Signs Temp 97.1 F 05/09/24 07:46 Pulse 72 05/09/24 08:04 Resp 18 05/09/24 07:46 BP 156/72 H 05/09/24 07:46 Pulse Ox 91 L 05/09/24 07:46 O2 Del Method Room Air 05/09/24 07:46 O2 Flow Rate 2 05/09/24 02:16 BMI result Body Mass Index 37.8 General: AO X 3, no acute distress Resp: Crackles resolved, no wheezing bilateral, no accessory muscles used CVS: S1,S2,RRR, trace edema GI: soft, non tender, non distended Neuro: motor grossly intact, alert Psych: appropriate affect, appropriate insight DS: Data Data Completed and Pending Labs on day of discharge: Laboratory Results - last 24 hr 05/08/24 05/08/24 05/08/24 11:15 16:01 20:52 POC Glucose 210 H 349 H 353 H* 05/09/24 07:16 POC Glucose 183 H Preliminary micro results at discharge 05/06/24 00:27 Blood Culture - Preliminary Blood - Venous No growth after 48 hours. 05/05/24 23:30 Blood Culture - Preliminary Blood - Venous No growth after 48 hours. Discharge Plan Discharge Anticipated Discharge Date/Time: 05/09/24 08:29 Patient Disposition: Xfer SNF Discharge Diagnosis: pna, copd, chf Referrals: [facility] [Outside] Ivett Blas MD [Primary Care Provider] - 1 Week Discharge Medications: New prednisone 20 mg Tablet 40 mg PO DAILY 2 Days Qty: 0 0RF metformin 1,000 mg tablet 1,000 mg PO BIDWMEAL Qty: 90 0RF levofloxacin 500 mg tablet 500 mg PO DAILY Qty: 5 0RF Continued albuterol sulfate 90 mcg/actuation HFA aerosol inhaler 2 puff inhalation Q6H PRN (Reason: for wheezing) Qty: 1 2RF Trelegy Ellipta 100-62.5-25 mcg blister with device 1 inh inhalation DAILY Qty: 60 4RF omeprazole 40 mg capsule,delayed release(DR/EC) 40 mg PO DAILY@0630 zolpidem 10 mg tablet 10 mg PO BEDTIME PRN (Reason: Sleep) levothyroxine 75 mcg tablet 37.5 mcg PO DAILY@0600 lisinopril 40 mg tablet 40 mg PO DAILY bisoprolol fumarate 5 mg tablet 5 mg PO DAILY cholecalciferol (vitamin D3) 25 mcg (1,000 unit) capsule 25 mcg PO DAILY multivitamin Tablet 1 tab PO DAILY aspirin 81 mg tablet,delayed release (DR/EC) 81 mg PO DAILY ascorbate calcium (vitamin C) 500 mg tablet 500 mg PO DAILY atorvastatin 80 mg tablet 80 mg PO DAILY acetaminophen [Tylenol Arthritis Pain] 650 mg tablet extended release 650 mg PO DAILY PRN (Reason: Pain) (DME) Oxygen Home Use Kit See Rx Instructions .ROUTE Rx Instructions: As directed Held azithromycin 250 mg tablet 250 mg PO MOWEFR Hold Instructions: Resume on 05/13/24. Discharge Orders: Discharge Order (Routine); Ordered 05/09/24 Ordered By: Chava Ken Diet: Advance to usual diet Activity on Discharge: As tolerated Stand Alone Forms: Patient Portal Discharge page Print Language: Vietnamese Care Plan Goals: recovery Health Concerns: copd, pneumonia, new DM Plan of Treatment: rehab, 2 more days prednisone, 5 more days ceftin, repeat chest imaging in 3-4 weeks, started on metformin Assessment: see above Patient Instructions: Type 2 Diabetes in Adults: New Diagnosis (GEN), Meal Planning with Diabetes Exchanges (GEN)
--- NOTE | 2024-05-09 09:43 | MHC.CM.PN ---
PT WILL DC TO [facility] FOR [facility] TODAY VIA [facility] S AT 1300 HOURS
[2024-05-09 11:19] LABS: Glucose, Whole Blood 214 mg/dL (60-115)
== END 2024-05-09 13:44 | disposition skilled nursing facility (03) | DRG 193 ==
LOC: HO.ED 22:45 → HO.EDOVER 05-06 00:16 → HO.S3 05-06 00:50
PROVIDERS: Physician Assistant; Admitting Provider Student in an Organized Health Care Education/Training Program; Emergency Provider Emergency Medicine Emergency Medical Services; PCP Internal Medicine; Visit Provider Internal Medicine
DX: J18.9 Pneumonia, unspecified organism (principal); I50.33 Acute on chronic diastolic (congestive) heart failure; J96.21 Acute and chronic respiratory failure with hypoxia; J43.2 Centrilobular emphysema; I25.10 Atherosclerotic heart disease of native coronary artery without angina pectoris; E03.9 Hypothyroidism, unspecified; I10 Essential (primary) hypertension; E11.65 Type 2 diabetes mellitus with hyperglycemia; E66.9 Obesity, unspecified; Z68.37 Body mass index [BMI] 37.0-37.9, adult; Z71.3 Dietary counseling and surveillance; K21.9 Gastro-esophageal reflux disease without esophagitis; Z20.822 Contact with and (suspected) exposure to COVID-19; Z99.81 Dependence on supplemental oxygen; Z87.891 Personal history of nicotine dependence; Z79.51 Long term (current) use of inhaled steroids; Z79.82 Long term (current) use of aspirin; Z79.890 Hormone replacement therapy; Z79.899 Other long term (current) drug therapy
CPT/HCPCS: 0241U; 36415; 71046; 71275; 80048; 80076; 81001; 82803; 82947; 83036; 83605; 83735; 83880; 84484; 85025; 85027; 85610; 85730; 87040; 93005; 93306; 94640; 97162; 99212; 99221; 99285; J0456; J0696; J1650; J1940; J2919; Q9957; Q9967

== ENCOUNTER → 2024-05-05 16:18 | Outpatient (BNV) | payer MEDICARE, MEDICAID, SELFPAY | PROVIDERS: Admitting Provider Student in an Organized Health Care Education/Training Program; Emergency Provider Emergency Medicine Emergency Medical Services; PCP Internal Medicine; Visit Provider Internal Medicine Cardiovascular Disease | DX: R06.02 Shortness of breath (principal); I49.3 Ventricular premature depolarization | CPT/HCPCS: 93010 ==

== ENCOUNTER → 2024-05-05 20:13 | Outpatient (BNV) | payer MEDICARE, MEDICAID, SELFPAY | PROVIDERS: Emergency Provider Emergency Medicine Emergency Medical Services; PCP Internal Medicine; Visit Provider Student in an Organized Health Care Education/Training Program | DX: J96.11 Chronic respiratory failure with hypoxia (principal); E11.65 Type 2 diabetes mellitus with hyperglycemia | CPT/HCPCS: 99223; 99232; 99239 ==

== ENCOUNTER → 2024-05-06 07:00 | Outpatient (BNV) | payer MEDICARE, MEDICAID, SELFPAY | PROVIDERS: Admitting Provider Student in an Organized Health Care Education/Training Program; Emergency Provider Emergency Medicine Emergency Medical Services; PCP Internal Medicine; Visit Provider Internal Medicine Cardiovascular Disease | DX: I42.8 Other cardiomyopathies (principal) | CPT/HCPCS: 93306 ==

== ENCOUNTER 2024-05-22 08:51 | Outpatient (REF) | payer MEDICARE, MEDICAID, SELFPAY ==
[2024-05-22 09:16] LABS: MANUAL DIFF FLAG NO
[2024-05-22 09:21] LABS: Venous Blood Gas Refer to POC result
[2024-05-22 09:22] LABS: VBG Base Excess 15.7 mmol/L; VBG HCO3 42 mmol/L (22-26); VBG pCO2 59 mmHg; VBG pH 7.46 (7.32-7.43); VBG pO2 39 mmHg
[2024-05-22 10:01] LABS: Anion Gap 15 (12-20); Blood Urea Nitrogen 19 mg/dL (9-16); Calcium 9.9 mg/dL (8.4-10.2); Carbon Dioxide 32 mmol/L (22-29); Chloride 101 mmol/L (96-108); Estimated Glomerular Filt Rate > 60; Glucose Random 225 mg/dL (60-115); Potassium 3.4 mmol/L (3.3-5.1); Sodium 145 mmol/L (135-145)
[2024-05-22 10:25] LABS: Erythrocyte Sedimentation Rate 39 MM/HR (0-20)
[2024-05-22 12:00] LABS: Basophils Absolute Auto 0.1 X10*3/uL (0.0-0.2); Basophils Percent Auto 0.4 % (0-2); Eosinophils Absolute Auto 0.8 X10*3/uL (0.0-0.4); Eosinophils Percent Auto 6.7 % (0-4); Hematocrit 39.6 % (37.0-47.0); Hemoglobin 12.1 g/dl (12.0-16.0); Imm Gran Abs Auto 0.11 X10*3/uL (0.00-0.03); Lymphocytes Absolute Auto 2.1 X10*3/uL (1.2-4.9); Lymphocytes Percent Auto 19.1 % (20-40); Mean Corpuscular HGB Conc 30.6 g/dl (31.0-35.0); Mean Corpuscular Hemoglobin 27.9 pg (27.0-33.0); Mean Corpuscular Volume 91.2 fL (80.0-98.0); Mean Platelet Volume 9.9 fL (9.4-12.3); Monocytes Percent Auto 8.8 % (2-11); Neutrophils Absolute Auto 7.1 x10*3/uL (2.0-8.3); Platelet Count 210 X10*3/uL (160-400); Red Blood Count 4.34 X10*6/uL (4.20-5.50); White Blood Count 11.1 X10*3/uL (4.8-10.8)
== END 2024-05-22 08:52 | disposition home or self-care (01) ==
LOC: HO.LAB 08:51
PROVIDERS: PCP Internal Medicine; Visit Provider Hospitalist
DX: J18.9 Pneumonia, unspecified organism (principal)
CPT/HCPCS: 36415; 80048; 82803; 85025; 85652

== ENCOUNTER 2024-05-27 10:31 | Outpatient (AMB) | payer MEDICARE, MEDICAID, SELFPAY ==
[2024-05-27 10:33] VITALS: BP 130/66; PULSE 72; O2SAT 90; BMI 37.0
--- NOTE | 2024-05-27 10:33 | MHC.OFFVIS ---
Vital Signs 05/27/24 10:33 Height 4 ft 11 in Weight 183 lb 2 oz BMI 37.0 BP 130/66 Blood Pressure Location Lt brachial Position Sitting Pulse 72 Pulse Source Pulse Oximeter Pulse Oximetry (%) 90 L Oxygen Delivery Method Nasal Cannula Oxygen Flow Rate 2 Intake Visit Reasons: copd Allergies morphine [MORPHINE] Allergy (Severe, Verified 05/27/24 10:44) DIFFICULTY BREATHING HPI HPI copd: Details: Carolin Garcia is a pleasant 73-year-old female, former smoker, underlying history of chronic hypoxemic respiratory failure due to severe COPD on 2-4 L supplemental oxygen, hypothyroidism, hypertension, and gastroesophageal reflux disease. At baseline she is moderately controlled on Trelegy and albuterol MDI. She is under the care Dr. Booker and presents today for hospital follow-up. [place] [facility] [place] after she was found to be hypoxic into the 60s with ambulation at routine visit with Dr. Booker, reporting overall fatigue and weakness without any fevers, chills, wheezing or productive cough. She was admitted for acute on chronic hypoxic respiratory failure multifactorial due to COPD with acute decompensation, multifocal pneumonia and acute on chronic diastolic CHF. For COPD exacerbation was treated with prednisone and 2 more days on discharge. For multifocal pneumonia was treated with ceftriaxone, azithromycin and on discharge 5 more days of levofloxacin. For acute on chronic diastolic CHF received IV Lasix diuresed well, echo with normal EF and diastolic dysfunction. Upon discharge patient's respiratory status is now close to baseline and is back on 2-4 L home O2. Due to deconditioning she was sent to SNF, however did not feel she was gaining anything so left shortly after being admitted. Since discharge she feels significantly improved, continues with dyspnea with minimal exertion. She has been maintaining her 02 88-92%, using 2L at rest, 3L with exertion and 2L NOC. She denies cough, wheezing or chest tightness. She does note since discharge has noticed increased BLE , R>L, always reports orthopnea. She has an upcoming appt with cardiology this week and PCP next week. [facility] Medical History Hiatal hernia GERD (gastroesophageal reflux disease) Lung mass TIA (transient ischemic attack) CAD (coronary artery disease) Pneumonia Chronic respiratory failure Pulmonary nodules Insomnia Centrilobular emphysema Family History Other HTN (hypertension) Social History Alcohol intake: never Comment: pt refuses bed alarm Patient Tobacco Use Status: Former Tobacco user Tobacco use type: Cigarette Years Smoked: 30 years service: No Review of Systems ENT Reports Normal hearing present Neuro Reports Normal hearing present Physical Exam Vital Signs: Last Vital Signs Pulse 72 05/27/24 10:33 BP 130/66 05/27/24 10:33 Pulse Ox 90 L 05/27/24 10:33 Oxygen Delivery Method Nasal Cannula 05/27/24 10:33 Oxygen Flow Rate 2 05/27/24 10:33 BMI result Body Mass Index 37.0 Const General: cooperative, comfortable, no acute distress, well developed and alert Nutritional Appearance: obese Orientation/consciousness: patient oriented x3 HEENT Head: Yes normal to inspection, Yes normocephalic and Yes atraumatic Ears: hearing grossly normal bilaterally and external ears normal Eyes General: appearance normal, both eyes and all related structures Eyelids: Yes eyelids normal Sclerae: sclerae normal EOM: EOMs intact bilaterally Neck Neck: Yes normal visual inspection and Yes no lymphadenopathy Lymphatic: no lymphadenopathy noted Chest Chest palpation & inspection: normal inspection of the chest Resp Effort & Inspection: normal respiratory effort, able to speak in complete sentences, no audible wheezes, no cough, no stridor, not tachypneic, no tripod positioning and no use of accessory muscles Auscultation: crackles (inspiratory) bilateral Cardio Jugular venous distension: no JVD Rate: regular rate Rhythm: regular rhythm Skin Other: warm, dry General skin exam: no rashes or lesions noted Neuro General: patient oriented x3 Cranial nerves: Yes Normal hearing present Cognition (Neuro): normal cognition Gait exam (Neuro): Normal gait present Extrem Other: 1+ pedal edema Psych Appearance: grossly normal and well kempt Speech and movement: Normal speech and movement present and Clear speech present Affect: normal affect Attitude: cooperative Thought process: Normal thought process present Thought content: Normal thought content present Insight: Good insight present (Psych) Judgement: Good judgement present (Psych) Assessment & Plan Assessment & Plan (1) Chronic respiratory failure: Comment: O2 dependant Code(s): J96.10 - Chronic respiratory failure, unspecified whether with hypoxia or hypercapnia Category: Medical Qualifiers: Respiratory failure complication: hypoxia Qualified Code(s): J96.11 - Chronic respiratory failure with hypoxia (2) Centrilobular emphysema: Code(s): J43.2 - Centrilobular emphysema Category: Medical Plan At this time, she reports improvements in bronchitic symptoms since discharge and notes oxygen saturation has been maintained 88-92%. Since discharge however she has noted an increase in BLE edema with associated increase in dyspnea. She was receiveing lasix in hospital however not continued upon discharge, now with bibasilar inspiratory crackles and orthopnea. Will send a 3 day supply of lasix and have patient monitor symptoms. She does have an upcoming appt with cardiology to discuss. Advised to continue Trelegy and albuterol neb. Call if symptoms are unchanged or seek emergent care if worsen, will obtain CXR. All questions were answered and patient is in agreement of plan. Will follow up for regularly scheduled appointment with Dr. Booker or sooner if needed. Medications: New vkyrabiugbi-levmqsnyi-gzcbymnx 200-62.5-25 mcg (Trelegy Ellipta) 1 inh inhalation DAILY 60 ea 6RF furosemide (Lasix) 20 mg PO DAILY 3 tabs 0RF Coding Level of Care Code Est Pt Level 4 (20262) Complex EM visit Add On G2211 Diagnoses Chronic respiratory failure with hypoxia J96.11 Respiratory failure complication: hypoxia Centrilobular emphysema J43.2
== END 2024-05-27 11:36 | disposition home or self-care (01) ==
PROVIDERS: PCP Internal Medicine; Visit Provider Nurse Practitioner Family
DX: J96.11 Chronic respiratory failure with hypoxia (principal); J43.2 Centrilobular emphysema
CPT/HCPCS: 99214; G2211

== ENCOUNTER → 2024-05-27 10:31 | Outpatient (BNVA) | payer MEDICARE, MEDICAID, SELFPAY | PROVIDERS: PCP Internal Medicine; Visit Provider Nurse Practitioner Family | DX: J96.11 Chronic respiratory failure with hypoxia (principal); J43.2 Centrilobular emphysema | CPT/HCPCS: 99212 ==

== ENCOUNTER 2024-06-15 14:14 | Outpatient (AMB) | payer MEDICARE, MEDICAID, SELFPAY ==
[2024-06-15 14:25] VITALS: BP 134/72; PULSE 71; O2SAT 91; BMI 37.0
--- NOTE | 2024-06-15 14:25 | MHC.OFFVIS ---
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 She is O2 dependent. Today she came in and her pulse conserving device. We took her off and placed on room air 5 minutes. Quickly her oxygen decreased to 88%. She needs stay on her oxygen supplementation continuously. We will submit this re-certification to her current [employer], by [employer]. In meantime she has been followed with the lung cancer screening program. Over the summer 2018 she did have an episode of pneumonia that resulted in a brief hospitalization after failed outpatient therapy. Initially she received doxycycline. Then she was admitted to the hospital normal. Overall she feels a little better this time. The patient also had a CT scan of the chest that we personally reviewed. She appears to have some increased airspace disease and some bronchitis looking airways primarily on the right lung. This is likely residual to her recent infection back in February. In the meantime her pulmonary nodule on the right is measuring about 8 mm in size and appears to have filled in more than before when I compared to her CT scan from July 2018. Therefore, we'll closely follow this nodule and another 3 months. She stated do a CT scan of the chest ruling out pulmonary emboli. The did find a small but enlarging right breast nodule. She will be following up with this. We did look at her older CT scan from 2019 which demons. She did have a recent CT scan of the chest as a follow-up for her last 1 in June 2019 at [facility]. It appeared that she has a new patchy area of consolidation which is masslike in addition to some areas of ground-glass opacities. This is new when compared to her CT scan from [facility]. This is suggestive process possibly of an infectious process versus a noninfectious inflammatory process. Less likely malignancy although is in the differential. The patient is agreeable to undergo blood work and also bronchoscopy. Will try to schedule it as well as possible in order to properly treat with antibiotics as necessary for ongoing lower respiratory infection. 04/03/2023 the patient is here for pulmonary follow-up visit. She does complain of worsening dyspnea on exertion. Even at rest. She has been using the oxygen continuously. However, even with the oxygen even going up to 3 L she is still short of breath. She has significant air trapping that is likely contributing to her worsening dyspnea symptoms. The patient did have a CT scan of the chest which we personally reviewed. Significant improvement in the nodular densities that she had in the right lower lobe. Suggesting more infectious process. She continues on the azithromycin 3 times a week. She will continue this therapy for now. 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 The patient will need to undergo pulmonary function studies and highly recommend starting pulmonary rehabilitation again. The patient is very deconditioned and with significant air trapping worsening dynamic inspiratory capacity this will continue to get worse if she does not get active. She will continue with current respiratory therapy. Will follow-up in 4-6 months. 09/02/2023 the patient is here for a pulmonary follow-up visit. The patient continues to complain of dyspnea on exertion. Now is worse even at rest moderate severity. With activity she has had 2 in increase her oxygen to 4 L to keep up with her activities of daily living. She is still sleeping 3 L at nighttime. The patient was participating in the pulmonary rehab and she did find it helpful. But then she got sick with a viral syndrome she was not sure if she got sick there. She is finally better even after having COVID afterwards. Now she is ready to go back to rehab because she did like it she was feel like she was getting something not. The patient feels like her breathing is worse she took some prednisone a few days ago that helped her breathing. She is already on Trelegy. She has a hard time with a nebulizer with albuterol because it caused her palpitations and tremulousness. Explained to the patient that she does have some increased wheezing on examination although is difficult to treat based on the fact that she has a cardiac issues. Initially had did recommend the patient start ipratropium nebulizer therapy to use twice a day. However, the patient returned her nebulizer because she was not using it. Will have her undergo a blood test today she was supposed have blood gas before will go ahead and repeat the blood gas and see if she has any worsening of her hypercarbic respiratory failure. The patient will benefit from noninvasive ventilator to help her with respiratory failure. On the patient may be reluctant at this time. I will talk to the patient and also to the [employer] company to see if we can make it work for the patient. 05/05/2024 the patient is here for sick visit. She has had worsening respiratory symptoms for the last 2 weeks. She had call the office with worsening respiratory symptoms and we did prescribe her some prednisone and antibiotics. She did not complete the prednisone because she did not think they were helping but she did complain antibiotics. She feels like she has a cough. Difficult to expectorate. She has also noticed some increasing heaviness in the chest area. She has been desaturating more regularly now down to the mid 60s on the 3 L of oxygen at home. When she came in today with her conserving device at 3 L pulse she was down with a pulse ox in the 70s. We quickly switched over to 4 L continuous in her oxygen did improve briefly to around 86 87%. Then improved to 89%. But still unclear. Respiratory exam with diminished breath sounds no significant wheezing or rhonchi or crackles. She does have some lower extremity edema. In view of the worsening hypoxia and concerns for end-organ damage I did recommend she go to the ER. I did call the ER triage so they know about her. I do believe that ruling out thromboembolic disease will be important also considering blood work to better address her symptoms. She is reluctant to stay in the hospital but she is willing to be evaluated in the ER this time. 06/15/2024 the patient is here for a pulmonary follow-up visit. Overall she is feeling little better for respiratory status. She does have some nasal congestion her. She is going to see ENT doctor soon. In the meantime she has been using the oxygen with good effect. Trying to maintain a pulse ox within 88-94%. The patient does well with a conserving device. She does use it around 4 L pulse. Although she would like a portable oxygen concentrator to have better portability outside of the home. She has been getting her oxygen through [facility] for many years. Will go ahead and request a POC through them. We did do another walking oximetry. The patient did desaturate at rest and also with activity. She was able to maintain a pulse ox of 91% on 4 L pulse. Therefore request a POC from her current [employer] company at this time. In the meantime she is going to have additional imaging studies done mid June to follow-up with the pneumonia. The patient also has been using her respiratory therapy with good effect. [facility] Medical History Hiatal hernia GERD (gastroesophageal reflux disease) Lung mass TIA (transient ischemic attack) CAD (coronary artery disease) Pneumonia Chronic respiratory failure Pulmonary nodules Insomnia Centrilobular emphysema Family History Other HTN (hypertension) Social History Alcohol intake: never Comment: pt refuses bed alarm Patient Tobacco Use Status: Former Tobacco user Tobacco use type: Cigarette Years Smoked: 30 years service: No Review of Systems Const Denies night sweats ENT Denies change in voice, Denies lip swelling, Denies mouth pain, Reports nasal congestion, Reports nasal discharge and Denies tongue swelling Card Denies chest pain, Reports chest pain at rest, Reports leg edema, Reports dyspnea and Reports dyspnea on exertion Resp Reports chest congestion, Reports cough, Denies pain on inspiration, Denies pain with cough, Reports dyspnea and Reports dyspnea on exertion GI Denies abdominal pain, Reports dyspepsia and Reports heartburn Musc Reports as per HPI, Reports abnormal gait, Reports myalgias, Reports arthralgias and Reports limited range of motion Neuro Denies Neuro-related abnormal movements and Reports abnormal gait Psych Denies no additional complaints Adonis/Lymph Denies easy bleeding and Denies lymphadenopathy Aller/Immun Denies lip swelling and Denies tongue swelling Physical Exam Vital Signs: Last Vital Signs Pulse 71 06/15/24 14:25 BP 134/72 06/15/24 14:25 Pulse Ox 91 L 06/15/24 14:25 Oxygen Delivery Method Nasal Cannula 06/15/24 14:25 Oxygen Flow Rate 4 06/15/24 14:25 BMI result Body Mass Index 37.0 Const General: alert Eyes Pupils: Equal, round and reactive pupils present Neck Neck: Yes normal visual inspection, Yes full ROM and Yes no lymphadenopathy Chest Chest palpation & inspection: normal inspection of the chest Resp Effort & Inspection: normal respiratory effort and prolonged expiratory phase Auscultation: no crackles, no rales, no wheezes and diminished lung sounds Cardio Rate: regular rate Rhythm: regular rhythm Heart sounds: S1 normal heart sound present and S2 normal heart sound present GI Palpation (GI): Soft to palpation and nontender Auscultation: normal bowel sounds General: Yes no CVA tenderness Back/Spine/Pelvis Back: no CVA tenderness Skin General skin exam: rashes and/or lesions noted Neuro Cranial nerves: Yes Equal, round and reactive pupils present Extrem General: No clubbing, No cyanosis and Yes edema Results Reviewed Results Reviewed: personally reviewed CTA 04/[address] [address] [address] Scan Report Signed Patient: Carolin Jimenez MR#: [id number] : 1950 Acct:[id number] Age/Sex: 73 / F ADM Date: 05/05/24 Loc: [facility] [id number]: Pako Gonzalez MD Ordering Physician: Pako Gonzalez MD Date of Service: 05/06/24 Procedure(s): CT angio chest PE protocol Accession Number(s): [id number] cc: Ivett Blas MD; Pako Gonzalez MD~ EXAMINATION: CT ANGIOGRAM CHEST CLINICAL INFORMATION: Hypoxia. Dyspnea. COMPARISON: CT chest 03/06/2023. CT chest 01/15/2022. TECHNIQUE: Multiple axial images were obtained through the chest after the administration of 65 mL of Omnipaque 350 intravenous contrast. Extensive vascular post-processing including two-dimensional and three-dimensional reformatted images were created and reviewed on an independent workstation. This CT examination was performed using dose optimization techniques as appropriate, variously including the following: *Automated exposure control *Adjustment of mA and/or kV according to patient size (this includes techniques or standardized protocols for targeted exams where dose is matched to indication/reason for exam; i.e. extremities or head) *Use of iterative reconstruction technique DLP: 301 mGy-cm FINDINGS: Pulmonary arteries: No intraluminal lesions identified within the visualized pulmonary arterial system to suggest the presence of pulmonary emboli. Thoracic aorta: Moderate scattered calcific atherosclerosis. Mediastinum: No lymphadenopathy. Marked diffuse coronary artery calcific atherosclerosis. Normal heart size. No pericardial thickening or pericardial fluid collections. Thoracic wall: No axillary lymphadenopathy. No thoracic wall inflammatory changes. Lungs and pleura: Focal peribronchial consolidation is noted in the posterior aspect of the right lower pulmonary lobe. A 5 mm noncalcified nodule is present in the right lung base (series 9 image 23, series 8 image 212) this finding is unchanged compared with 03/06/2023. This finding is unchanged appreciably compared with 01/15/2022 and is therefore benign appearance. (2017 modified Fleischner Society guidelines). Scattered peribronchial consolidation is noted in the left upper pulmonary lobe and peribronchial wall thickening and scattered interstitial and peribronchial reticular opacities are present in the left lower pulmonary lobe. Mild focal consolidation is noted within the lingula. Mild peribronchial wall thickening is noted within the right lower pulmonary lobe. Visualized abdominal structures: Normal appearance of the adrenal glands. Osseous structures: No suspicious osseous abnormalities identified. CT/CT angio chest PE protocol IMPRESSION: *CT pulmonary angiogram negative for pulmonary emboli. *Multifocal pulmonary consolidation and peribronchial wall inflammatory changes. Findings are suspicious for pneumonia. *Marked diffuse coronary artery calcific atherosclerosis. Electronically signed by: Pranay Marino MD 05/06/2024 02:05 AM [facility] [place]ict[place] By: Pranay Marino MD Signed By: <Electronically signed by Pranay Marino MD in OV> 05/06/24 0205 DD/ 0030 TD/TT: 05/06/24 0057 C D Stripper: EF Assessment & Plan Assessment & Plan (1) Pulmonary nodules: Code(s): R91.8 - Other nonspecific abnormal finding of lung field Category: Medical (2) Chronic respiratory failure: Comment: O2 dependant Code(s): J96.10 - Chronic respiratory failure, unspecified whether with hypoxia or hypercapnia Category: Medical Qualifiers: Respiratory failure complication: hypoxia Qualified Code(s): J96.11 - Chronic respiratory failure with hypoxia (3) Centrilobular emphysema: Code(s): J43.2 - Centrilobular emphysema Category: Medical (4) GERD (gastroesophageal reflux disease): Code(s): K21.9 - Gastro-esophageal reflux disease without esophagitis Category: Medical Qualifiers: Esophagitis presence: without esophagitis Qualified Code(s): K21.9 - Gastro-esophageal reflux disease without esophagitis (5) Hiatal hernia: Code(s): K44.9 - Diaphragmatic hernia without obstruction or gangrene Category: Medical (6) Community acquired pneumonia: Code(s): J18.9 - Pneumonia, unspecified organism Category: Medical Qualifiers: Laterality: unspecified laterality Qualified Code(s): J18.9 - Pneumonia, unspecified organism Plan oxygen revision: requesting POC for better portability outside of the home. Requesting oxymask to use with oxygen while sleepinL at rest and sleeping 4L/pulse with activity continue Trelegy continue oxygen supplementation continue Azithromycin MWF sputum cx continue reflux diet continue PPI CXR next month Follow-up in 2 month Orders: Orders Sputum Cult + Gram stain Today J18.9 - Pneumonia, unspecified organism Coding Level of Care Code Est Pt Level 4 (87487) Complex EM visit Add On G2211 Diagnoses Pulmonary nodules R91.8 Chronic respiratory failure with hypoxia J96.11 Respiratory failure complication: hypoxia Centrilobular emphysema J43.2 Gastroesophageal reflux disease without esophagitis K21.9 Esophagitis presence: without esophagitis Hiatal hernia K44.9 Community acquired pneumonia, unspecified laterality J18.9 Laterality: unspecified laterality Time Spent (min) 18
== END 2024-06-15 15:00 | disposition home or self-care (01) ==
PROVIDERS: PCP Internal Medicine; Visit Provider Hospitalist
DX: R91.8 Other nonspecific abnormal finding of lung field (principal); J96.11 Chronic respiratory failure with hypoxia; J43.2 Centrilobular emphysema; K21.9 Gastro-esophageal reflux disease without esophagitis; K44.9 Diaphragmatic hernia without obstruction or gangrene; J18.9 Pneumonia, unspecified organism
CPT/HCPCS: 99214; G2211

== ENCOUNTER → 2024-06-15 14:14 | Outpatient (BNVA) | payer MEDICARE, MEDICAID, SELFPAY | PROVIDERS: PCP Internal Medicine; Visit Provider Hospitalist | DX: J44.9 Chronic obstructive pulmonary disease, unspecified (principal); J43.2 Centrilobular emphysema; J96.11 Chronic respiratory failure with hypoxia; J18.9 Pneumonia, unspecified organism; R91.8 Other nonspecific abnormal finding of lung field; K21.9 Gastro-esophageal reflux disease without esophagitis; K44.9 Diaphragmatic hernia without obstruction or gangrene; Z99.81 Dependence on supplemental oxygen; Z87.891 Personal history of nicotine dependence | CPT/HCPCS: 99212 ==

== ENCOUNTER 2024-07-06 15:02 | Outpatient (REF) | payer MEDICARE, MEDICAID, SELFPAY ==
--- NOTE | ~2024-07-06 | XR_ITS ---
EXAMINATION: XR CHEST 2 VIEWS HISTORY: J43.2 - Centrilobular emphysema COMPARISON: Comparison is made with the prior examination dated 05/05/2024. FINDINGS: PA and lateral views of the chest are submitted. Again seen are multiple bilateral patchy areas of airspace consolidation. The majority of these opacities in the left lung demonstrates improved aeration. A right upper lobe opacity appears slightly more prominent wall a right basilar opacity is unchanged. There is no pleural effusion, pneumothorax, or pulmonary vascular congestion. The heart is normal in size. The aorta is calcified. The bones are intact. XR/XR chest 2V IMPRESSION: Bilateral patchy airspace consolidations with improvement on the left and mild progression on the right. Electronically signed by: Robin Watkins MD 07/06/2024 03:41 PM [facility]
== END 2024-07-06 15:03 | disposition home or self-care (01) ==
LOC: HO.XRAY 15:02
PROVIDERS: PCP Internal Medicine; Visit Provider Hospitalist
DX: J43.2 Centrilobular emphysema (principal)
CPT/HCPCS: 71046

== ENCOUNTER → 2024-07-06 15:09 | Outpatient (BNV) | payer MEDICARE, MEDICAID, SELFPAY | PROVIDERS: PCP Internal Medicine; Visit Provider Radiology Diagnostic Radiology | DX: J43.2 Centrilobular emphysema (principal) | CPT/HCPCS: 71046 ==

== ENCOUNTER 2024-08-10 09:54 | Outpatient (AMB) | payer MEDICARE, MEDICAID, SELFPAY ==
[2024-08-10 10:01] VITALS: BP 142/86; PULSE 76; O2SAT 87; BMI 37.4
--- NOTE | 2024-08-10 10:01 | MHC.OFFVIS ---
Vital Signs 08/10/24 10:01 Height 4 ft 11 in Weight 185 lb 3.013 oz BMI 37.4 BP 142/86 H Blood Pressure Location Rt brachial Position Sitting Pulse 76 Pulse Source Pulse Oximeter Pulse Oximetry (%) 87 L Oxygen Delivery Method Nasal Cannula Oxygen Flow Rate 2 Intake Visit Reasons: COPD Allergies morphine [MORPHINE] Allergy (Severe, Verified 08/10/24 10:07) DIFFICULTY BREATHING HPI Comments Details: The patient is a 73-year-old woman known COPD pulmonary nodules. She is O2 dependent. Today she came in and her pulse conserving device. We took her off and placed on room air 5 minutes. Quickly her oxygen decreased to 88%. She needs stay on her oxygen supplementation continuously. We will submit this re-certification to her current [employer], by [employer]. In meantime she has been followed with the lung cancer screening program. Over the summer 2018 she did have an episode of pneumonia that resulted in a brief hospitalization after failed outpatient therapy. Initially she received doxycycline. Then she was admitted to the hospital normal. Overall she feels a little better this time. The patient also had a CT scan of the chest that we personally reviewed. She appears to have some increased airspace disease and some bronchitis looking airways primarily on the right lung. This is likely residual to her recent infection back in February. In the meantime her pulmonary nodule on the right is measuring about 8 mm in size and appears to have filled in more than before when I compared to her CT scan from July 2018. Therefore, we'll closely follow this nodule and another 3 months. She stated do a CT scan of the chest ruling out pulmonary emboli. The did find a small but enlarging right breast nodule. She will be following up with this. We did look at her older CT scan from 2019 which joshuaons. She did have a recent CT scan of the chest as a follow-up for her last 1 in June 2019 at [facility]. It appeared that she has a new patchy area of consolidation which is masslike in addition to some areas of ground-glass opacities. This is new when compared to her CT scan from [facility]. This is suggestive process possibly of an infectious process versus a noninfectious inflammatory process. Less likely malignancy although is in the differential. The patient is agreeable to undergo blood work and also bronchoscopy. Will try to schedule it as well as possible in order to properly treat with antibiotics as necessary for ongoing lower respiratory infection. 04/03/2023 the patient is here for pulmonary follow-up visit. She does complain of worsening dyspnea on exertion. Even at rest. She has been using the oxygen continuously. However, even with the oxygen even going up to 3 L she is still short of breath. She has significant air trapping that is likely contributing to her worsening dyspnea symptoms. The patient did have a CT scan of the chest which we personally reviewed. Significant improvement in the nodular densities that she had in the right lower lobe. Suggesting more infectious process. She continues on the azithromycin 3 times a week. She will continue this therapy for now. She will follow-up with her [employer] and should have an EKG done. The patient will need to undergo pulmonary function studies and highly recommend starting pulmonary rehabilitation again. The patient is very deconditioned and with significant air trapping worsening dynamic inspiratory capacity this will continue to get worse if she does not get active. She will continue with current respiratory therapy. Will follow-up in 4-6 months. 09/02/2023 the patient is here for a pulmonary follow-up visit. The patient continues to complain of dyspnea on exertion. Now is worse even at rest moderate severity. With activity she has had 2 in increase her oxygen to 4 L to keep up with her activities of daily living. She is still sleeping 3 L at nighttime. The patient was participating in the pulmonary rehab and she did find it helpful. But then she got sick with a viral syndrome she was not sure if she got sick there. She is finally better even after having COVID afterwards. Now she is ready to go back to rehab because she did like it she was feel like she was getting something not. The patient feels like her breathing is worse she took some prednisone a few days ago that helped her breathing. She is already on Trelegy. She has a hard time with a nebulizer with albuterol because it caused her palpitations and tremulousness. Explained to the patient that she does have some increased wheezing on examination although is difficult to treat based on the fact that she has a cardiac issues. Initially had did recommend the patient start ipratropium nebulizer therapy to use twice a day. However, the patient returned her nebulizer because she was not using it. Will have her undergo a blood test today she was supposed have blood gas before will go ahead and repeat the blood gas and see if she has any worsening of her hypercarbic respiratory failure. The patient will benefit from noninvasive ventilator to help her with respiratory failure. On the patient may be reluctant at this time. I will talk to the patient and also to the [employer] to see if we can make it work for the patient. 05/05/2024 the patient is here for sick visit. She has had worsening respiratory symptoms for the last 2 weeks. She had call the office with worsening respiratory symptoms and we did prescribe her some prednisone and antibiotics. She did not complete the prednisone because she did not think they were helping but she did complain antibiotics. She feels like she has a cough. Difficult to expectorate. She has also noticed some increasing heaviness in the chest area. She has been desaturating more regularly now down to the mid 60s on the 3 L of oxygen at home. When she came in today with her conserving device at 3 L pulse she was down with a pulse ox in the 70s. We quickly switched over to 4 L continuous in her oxygen did improve briefly to around 86 87%. Then improved to 89%. But still unclear. Respiratory exam with diminished breath sounds no significant wheezing or rhonchi or crackles. She does have some lower extremity edema. In view of the worsening hypoxia and concerns for end-organ damage I did recommend she go to the ER. I did call the ER triage so they know about her. I do believe that ruling out thromboembolic disease will be important also considering blood work to better address her symptoms. She is reluctant to stay in the hospital but she is willing to be evaluated in the ER this time. 06/15/2024 the patient is here for a pulmonary follow-up visit. Overall she is feeling little better for respiratory status. She does have some nasal congestion her. She is going to see ENT doctor soon. In the meantime she has been using the oxygen with good effect. Trying to maintain a pulse ox within 88-94%. The patient does well with a conserving device. She does use it around 4 L pulse. Although she would like a portable oxygen concentrator to have better portability outside of the home. She has been getting her oxygen through [facility] for many years. Will go ahead and request a POC through them. We did do another walking oximetry. The patient did desaturate at rest and also with activity. She was able to maintain a pulse ox of 91% on 4 L pulse. Therefore request a POC from her current [employer] company at this time. In the meantime she is going to have additional imaging studies done mid June to follow-up with the pneumonia. The patient also has been using her respiratory therapy with good effect. 08/10/2024 the patient is here for pulmonary follow-up visit. Overall she is feeling better. She did start physical therapy and occupational therapy. She is looking to continue pulmonary rehabilitation. The POC has been very affecting beneficial. She has also been able to decrease the oxygen in her home since her oxygen levels have been much better. While decreasing her oxygen her headaches have gotten also better. Was all reassuring. The patient did have blood work done her CO2 is also been decreasing which is good. Will plan to repeat the blood work in 3-4 months. In the meantime she also had a chest x-ray in June. I personally reviewed. Appears that the airspace disease better although she still has some residual findings. Therefore have her get an x-ray sometime next month to make sure that it continues to improve. She continues use her respiratory therapy with good effect. She has been on the azithromycin 3 times a week for chronic bronchitis. Will see if we can wean her off at this time. We did talk about PD4 inhibitors both inhaled and also by mouth. She will consider these medications were very now she is doing well. [facility] Medical History Hiatal hernia GERD (gastroesophageal reflux disease) Lung mass TIA (transient ischemic attack) CAD (coronary artery disease) Pneumonia Chronic respiratory failure Pulmonary nodules Insomnia Centrilobular emphysema Family History Other HTN (hypertension) Social History Alcohol intake: never Comment: pt refuses bed alarm Patient Tobacco Use Status: Former Tobacco user Tobacco use type: Cigarette Years Smoked: 30 years service: No Review of Systems Const Denies night sweats ENT Denies change in voice, Denies lip swelling, Denies mouth pain, Reports nasal congestion, Reports nasal discharge and Denies tongue swelling Card Denies chest pain, Reports chest pain at rest and Reports dyspnea on exertion Resp Reports chest congestion, Reports cough, Denies pain on inspiration, Denies pain with cough and Reports dyspnea on exertion GI Denies abdominal pain, Reports dyspepsia and Reports heartburn Musc Reports as per HPI, Reports abnormal gait, Reports myalgias, Reports arthralgias and Reports limited range of motion Neuro Denies Neuro-related abnormal movements and Reports abnormal gait Psych Denies no additional complaints Adonis/Lymph Denies easy bleeding and Denies lymphadenopathy Aller/Immun Denies lip swelling and Denies tongue swelling Physical Exam Vital Signs: Last Vital Signs Pulse 76 08/10/24 10:01 BP 142/86 H 08/10/24 10:01 Pulse Ox 87 L 08/10/24 10:01 Oxygen Delivery Method Nasal Cannula 08/10/24 10:01 Oxygen Flow Rate 2 08/10/24 10:01 BMI result Body Mass Index 37.4 Const General: alert Eyes Pupils: Equal, round and reactive pupils present Neck Neck: Yes normal visual inspection, Yes full ROM and Yes no lymphadenopathy Chest Chest palpation & inspection: normal inspection of the chest Resp Effort & Inspection: normal respiratory effort and prolonged expiratory phase Auscultation: no crackles, no rales, no wheezes and diminished lung sounds Cardio Rate: regular rate Rhythm: regular rhythm Heart sounds: S1 normal heart sound present and S2 normal heart sound present GI Palpation (GI): Soft to palpation and nontender Auscultation: normal bowel sounds General: Yes no CVA tenderness Back/Spine/Pelvis Back: no CVA tenderness Skin General skin exam: rashes and/or lesions noted Neuro Cranial nerves: Yes Equal, round and reactive pupils present Extrem General: No clubbing, No cyanosis and Yes edema Assessment & Plan Assessment & Plan (1) Pulmonary nodules: Code(s): R91.8 - Other nonspecific abnormal finding of lung field Category: Medical (2) Chronic respiratory failure: Comment: O2 dependant Code(s): J96.10 - Chronic respiratory failure, unspecified whether with hypoxia or hypercapnia Category: Medical Qualifiers: Respiratory failure complication: hypoxia Qualified Code(s): J96.11 - Chronic respiratory failure with hypoxia (3) Centrilobular emphysema: Code(s): J43.2 - Centrilobular emphysema Category: Medical (4) GERD (gastroesophageal reflux disease): Code(s): K21.9 - Gastro-esophageal reflux disease without esophagitis Category: Medical Qualifiers: Esophagitis presence: without esophagitis Qualified Code(s): K21.9 - Gastro-esophageal reflux disease without esophagitis (5) Hiatal hernia: Code(s): K44.9 - Diaphragmatic hernia without obstruction or gangrene Category: Medical (6) Community acquired pneumonia: Code(s): J18.9 - Pneumonia, unspecified organism Category: Medical Qualifiers: Laterality: unspecified laterality Qualified Code(s): J18.9 - Pneumonia, unspecified organism Plan oxygen: POC for better portability outside of the home. Requesting oxymask to use with oxygen while sleepinL at rest and sleeping 4L/pulse with activity continue Trelegy continue oxygen supplementation weaning off Azithromycin MWF sputum cx if able continue reflux diet continue PPI CXR next month Bloodwork, bloodgas prior to next visit continue Pulmonary rehab/PT/OT Follow-up in 3-4 month Orders: Orders Venous Blood Gas Today J43.2 - Centrilobular emphysema, J96.11 - Chronic respiratory failure with hypoxia Complete Blood Count Auto Diff Today J43.2 - Centrilobular emphysema, J96.11 - Chronic respiratory failure with hypoxia Erythrocyte Sedimentation Rate Today J43.2 - Centrilobular emphysema, J96.11 - Chronic respiratory failure with hypoxia Basic Metabolic Panel Today J43.2 - Centrilobular emphysema, J96.11 - Chronic respiratory failure with hypoxia XR chest 2V Today J18.9 - Pneumonia, unspecified organism Medications: Refilled benzonatate 100 mg PO TID PRN 60 caps 8RF Cough Coding Level of Care Code Est Pt Level 4 (12431) Complex EM visit Add On G2211 Diagnoses Pulmonary nodules R91.8 Chronic respiratory failure with hypoxia J96.11 Respiratory failure complication: hypoxia Centrilobular emphysema J43.2 Gastroesophageal reflux disease without esophagitis K21.9 Esophagitis presence: without esophagitis Hiatal hernia K44.9 Community acquired pneumonia, unspecified laterality J18.9 Laterality: unspecified laterality Time Spent (min) 17
--- OUTSIDE RECORDS SUMMARY | 2024-08-10 10:58 | XMS_ITS | Clinical Summary ---
Author Organization [facility] Address [address] [place] [address] Phone Care Team Providers Care Vinyl Installer Name Role Phone Ivett Blas MD Primary Care Provider Medications omeprazole (PriLOSEC) [address] capsule TAKE 1 CAPSULE BY MOUTH IN A.M. ON EMPTY STOMACH WAIT 30 MINUTES AND THEN EAT TO ACTIVATE MEDICATION 90 capsule 3 Active Encounters Date Type Department Care Team Description 06/29/2024 9:08 AM EST - 06/29/2024 11:59 PM EST Hospital Encounter [facility] CT Scan [address] [place] [address] Compression of vein Discharge Disposition: Home or Self Care from Last 3 Months Surgical History Surgery Date Site/Laterality Comments SECTION PROCEDURE: [place] DELIVERY ONLY; COMMENT: x1 OTHER SURGICAL HISTORY PROCEDURE: [place] LIG/TRNSXJ FLP TUBE ABDL/VAG APPR UNI/BI TONSILLECTOMY ADENOIDECTOMY, BILATERAL MYRINGOTOMY AND TUBES PROCEDURE: [place] TONSILLECTOMY & ADENOIDECTOMY <AGE 14 OTHER SURGICAL HISTORY 2003 PROCEDURE: [place] CLSR RECTOVAGINAL FISTULA ABDOMINAL APPROACH; COMMENT: Dr. Díaz OTHER SURGICAL HISTORY 2016 Right PROCEDURE: [place] ICAPSULAR CATARACT XTRJ INSJ IO LENS PRSTH 1 STG BREAST BIOPSY 2004 Left PROCEDURE: BX BREAST; PERC NEEDLE CORE W/IMAG GUID; COMMENT: benign COLONOSCOPY PROCEDURE: HISTORICAL COLONOSCOPY; COMMENT: Performed by Dr. Drake in July 2018 OTHER SURGICAL HISTORY PROCEDURE: BARIUM SWALLOW; COMMENT: Performed in July 2020 with a small hiatal hernia noted and no reflux elicited Medical History Medical History Date Comments Historical Medical DX 09/21/2008 DX:COPD Asthma 09/21/2008 DX:Asthma Hypertension 09/21/2008 DX:Hypertension Rh sensitized 1974 DX:Rh sensitized ; COMMENT: second complicated by rh sentization. Fistula, vagina 2003 DX:Fistula, vagi na; COMMENT: had rectovaginal fistula repaired Pneumonia 04/28/2014 DX:Pneumonia CAD (coronary artery disease) 06/25/2014 DX :CAD (coronary artery disease) Adhesive capsulitis of right shoulder DX:Adhesive capsulitis of right shoulder; COMMENT: Dr. Milligan Hypercholesteremia DX:Hyperchole steremia IFG (impaired fasting glucose) D X:IFG (impaired fasting glucose) GERD (gastroesophageal reflux disease) DX:GERD (gastroesophageal reflux disease) Dyspepsia DX:Dyspepsia Swallowing difficulty DX:Swallow ing difficulty Shortness of breath DX:Shortness of breath Atypical chest pain DX:Atypical chest pain Family History Medical History Relation Name Comments Breast cancer Aunt 1 m 45 X2 MATERNAL Breast cancer Aunt 2 m 62 PATERNAL Alcohol/Drug Brother 1 passed overdose Colon cancer Maternal Grandmother Lung cancer Mother Colon cancer Mother's side 1 mgm's brothe r Ovarian cancer Mother's side 2 mgm's sist er Uterine cancer Neg Hx Relation Name Status Comments Aunt 1 m 45 Aunt 2 m 62 Brother 1 Brother 2 Brother 3 Maternal Grandmother Mother Mother's side 1 Mother's side 2 Social History Tobacco Use Types Packs/Day Years Used Date Smoking Tobacco: Former Cigarettes Q uit: 05/18/2010 Smokeless Tobacco: Never Alcohol Use Standard Drinks/Week Comments Yes 0 (1 standard drink = 0.6 oz pur e alcohol) Comments Unknown Sex and Gender Information Value Date Recorded Sex Assigned at Female 06/02/2024 4:38 PM EST Legal Sex Female 1:54 PM EST Gender Identity Female 06/02/2024 4:38 PM EST Sexual Orientation Straight 06/02/2024 4: 38 PM EST Obstetrics History Last Filed Vital Signs Vital Sign Reading Time Taken Comments Blood Pressure 130/84 05/28/2023 9:29 AM EST Pulse 82 05/28/2023 9:29 AM EST Temperature - - Respiratory Rate - - Oxygen Saturation - - Inhaled Oxygen Concentration - - Weight 85.7 kg (189 lb) 05/28/2023 9:29 AM EST Height 152.4 cm (5') 05/28/2023 9:29 AM EST Body Mass Index 36.91 05/28/2023 9:29 AM EST Plan of Treatment Health Maintenance Due Date Last Done Comments Diabetes: Annual Foot Exam 1962 Diabetes: Annual Retina Eye Exam 1962 Pneumococcal Vaccine: 50+ Years (1 of 2 - PCV) 09/14/1971 Zoster Vaccines (1 of 2) 2002 RSV Immunization Patients 60+ Years Old (1 - Risk 60-74 years 1-dose series) 2012 DTaP,Tdap,and Td Vaccines (2 - Td or Tdap) 07/24/2016 07/24/2006 Breast Cancer Screening 07/31/2021 07/31/19 20, 06/27/2018, 05/28/2017, Additional history exists Cholesterol Screening (Lipid Panel) 05/26/2022 Colorectal Cancer Screening: Stool Based Tests (FOBT/FIT) 05/26/2022 Depression Screening 05/26/2022 Falls Risk Assessment 05/26/2022 Hepatitis C Screening 05/26/2022 Medicare Annual Wellness Visit 05/26/2022 Osteoporosis Screening (Bone Density Screening) 05/26/2022 Social Influencers of Health Screening 05/26/2022 COVID-19 Vaccine ( season) 2024 Influenza Vaccine (#1) 2024 Diabetes: Annual Urine Albumin-Creatinine Ratio (uACR) 05/21/2024 Diabetes: Blood Sugar Control Test (HGBA1C) 05/21/2024 Diabetes: Annual GFR (Glomerular Filtration Rate) 04/10/2025 04/10/2024 Hypertension/CHF/CAD Annual BMP Blood Test 04/10/2025 04/10/2024 HIB Vaccines Aged Out No longer eligi ble based on patient's age to complete this topic HPV Vaccines Aged Out No longer eligi ble based on patient's age to complete this topic Hepatitis A Vaccines Aged Out No long er eligible based on patient's age to complete this topic Hepatitis B Vaccines Aged Out No long er eligible based on patient's age to complete this topic IPV Vaccines Aged Out No longer eligi ble based on patient's age to complete this topic MMR Vaccines Aged Out No longer eligi ble based on patient's age to complete this topic Meningococcal ACWY Vaccine Aged Out N o longer eligible based on patient's age to complete this topic Meningococcal B Vacine Aged Out No lo nger eligible based on patient's age to complete this topic RSV Immunization Patients Under 20 months Aged Out No longer eligible based on patient's age to complete this topic Varicella Vaccines Aged Out No longer eligible based on patient's age to complete this topic Procedures Procedure Name Priority Date/Time Associated Diagnosis Comments CT ANGIO ABDOMEN PELVIS WO AND/OR W CONTRAST Routine 06/29/2024 9:35 AM EST Compression of vein DX MAMMO INCL CAD BI Routine 07/31/2019 2:25 PM EST Unspecified lump in unspecified breast from Last 3 Months or Most Recently Relevant to Health Maintenance Results * CT Angio Abdomen Pelvis wo and/or w Contrast (06/29/2024 9:35 AM EST) Anatomical Region Laterality Modality Body Computed Tomogra phy 07/06/2024 1:32 PM EST Impressions 07/06/2024 1:53 PM EST Patent abdominal and pelvic arterial and venous vasculature. ??No CT evidence of venous compression, May Thurner physiology, or pelvic congestion. No acute findings in the abdomen/pelvis. -------- FINAL REPORT -------- Dictated By: NANDO ÁLVAREZ Dictated Date: 07/06/2024 13:32 ET Assigned Physician: NANDO ÁLVAREZ Reviewed and Electronically Signed By: NANDO ÁLVAREZ Signed Date: 07/06/2024 13:53 ET Workstation ID: [id number] Transcribed By: Self Edit Transcribed Date: 07/06/2024 13:32 ET Narrative 07/06/2024 1:53 PM EST PROCEDURE: CTA abdomen and pelvis INDICATION: Pelvic pain TECHNIQUE: Abdomen/pelvis CTA with intravenous administration of 90cc ISOVUE- 370. Multi planar reformats were created and interpreted. The examination was performed utilizing dose reduction techniques.3-D or MIP images were produced with postprocessing on an independent computer workstation. ??Total DLP 3231 COMPARISON: ??No priors available. FINDINGS: CTA: The descending thoracic aorta is within normal limits. ??Mild stenosis of the celiac artery origin with preserved contrast opacification of the distal branches of the celiac artery. ??Mild stenosis at the SMA origin with preserved contrast opacification of the distal portions of the SMA and its major branches. ??Renal arteries are patent bilaterally. ??EMEKA is patent. Abdominal aorta is ectatic measuring up to 2.5 cm. ??The common iliac and external iliac arteries are patent bilaterally. ??Visualized portions of the femoral arteries are patent. Portal vein is patent. ??Splenic vein and major mesenteric veins are patent. ??Renal veins are patent. ??IVC and iliac veins are patent. ??Gonadal veins are not dilated. ??No cross pelvic collateral veins are visualized.. Other: Multifocal scarring and groundglass opacities throughout the lung bases are better evaluated on prior chest CTs. Hepatic steatosis. ??Subcentimeter hypodensities throughout the liver, too small to characterize but most likely cysts. ??Cholelithiasis. ??No biliary duct dilatation. Pancreas, spleen, and adrenal glands are normal. Punctate nonobstructive right renal calculus. ??No ureteral calculi or hydronephrosis. ??No solid renal mass. No retroperitoneal or mesenteric lymphadenopathy. Uterus and ovaries are normal. ??Bladder is normal. No pelvic lymphadenopathy. Colonic diverticulosis. ??No bowel obstruction or wall thickening. ??Normal appendix. ??No ascites, fluid collection, or free intraperitoneal air. Small fat-containing right inguinal hernia and periumbilical hernia. ??No superficial soft tissue mass. Degenerative changes are seen throughout the bones. ??No acute fracture. Procedure Note Nando Álvarez MD - 07/06/2024 PROCEDURE: CTA abdomen and pelvis INDICATION: Pelvic pain TECHNIQUE: Abdomen/pelvis CTA with intravenous administration of 90ccISOVUE-370. Multi planar reformats were created and interpreted. Theexamination was performed utilizing dose reduction techniques.3-D or MIPimages were produced with postprocessing on an independent computerworkstation. Total DLP 3231 COMPARISON: No priors available. FINDINGS: CTA: The descending thoracic aorta is within normal limits. Mild stenosis ofthe celiac artery origin with preserved contrast opacification of thedistal branches of the celiac artery. Mild stenosis at the SMA originwith preserved contrast opacification of the distal portions of the SMAand its major branches. Renal arteries are patent bilaterally. EMEKA ispatent. Abdominal aorta is ectatic measuring up to 2.5 cm. The common iliac andexternal iliac arteries are patent bilaterally. Visualized portions ofthe femoral arteries are patent. Portal vein is patent. Splenic vein and major mesenteric veins arepatent. Renal veins are patent. IVC and iliac veins are patent. Gonadalveins are not dilated. No cross pelvic collateral veins arevisualized.. Other: Multifocal scarring and groundglass opacities throughout the lung basesare better evaluated on prior chest CTs. Hepatic steatosis. Subcentimeter hypodensities throughout the liver, toosmall to characterize but most likely cysts. Cholelithiasis. No biliaryduct dilatation. Pancreas, spleen, and adrenal glands are normal. Punctate nonobstructive right renal calculus. No ureteral calculi orhydronephrosis. No solid renal mass. No retroperitoneal or mesenteric lymphadenopathy. Uterus and ovaries are normal. Bladder is normal. No pelvic lymphadenopathy. Colonic diverticulosis. No bowel obstruction or wall thickening. Normalappendix. No ascites, fluid collection, or free intraperitoneal air. Small fat-containing right inguinal hernia and periumbilical hernia. Nosuperficial soft tissue mass. Degenerative changes are seen throughout the bones. No acute fracture. IMPRESSION: Patent abdominal and pelvic arterial and venous vasculature. No CTevidence of venous compression, May Thurner physiology, or pelviccongestion. No acute findings in the abdomen/pelvis. -------- FINAL REPORT -------- Dictated By: NANDO ÁLVAREZ Dictated Date: 07/06/2024 13:32 ET Assigned Physician: NANDO ÁLVAREZ Reviewed and Electronically Signed By: NANDO ÁLVAREZ Signed Date: 07/06/2024 13:53 ET Workstation ID: [id number] Transcribed By: Self Edit Transcribed Date: 07/06/2024 13:32 ET us Durga Manrique MD IM CT PROCEDURES Final Re sult * DX MAMMO INCL CAD BI (07/31/2019 2:25 PM EST) Anatomical Region Laterality Modality Mammography 07/03/2019 5:26 PM EST Narrative 07/31/2019 2:55 PM EST This is a summary report. The complete report is available in the patient's medical record. If you cannot access the medical record, please contact the sending organization for a detailed fax or copy. Exam: Diagnostic mammogram History: 0.8 cm right medial breast nodule on outside chest CT scan 06/24/2019 Findings: Digital bilateral full-field diagnostic mammography is performed and interpreted with the aid of computer-aided detection. ??Comparison is made with 06/27/2018 and as far back as 04/30/2013. ??Correlation made with the chest CT 06/24/2019. Breast parenchyma is predominantly fatty replaced. Two ovoid circumscribed nodules measuring 1 cm in the right breast are stable as far back as 04/30/2013. ??These are located in the inner breast just below the level of the nipple and in the slightly lower and slightly outer breast. ??The medial nodule corresponds with the finding on CT. No new suspicious mass, architectural distortion, or suspicious calcifications. Impression: The right breast nodule on the outside chest CT corresponds with a chronic finding on mammography which is stable as far back as 2012. ??No mammographic evidence of malignancy in either breast. BI-RADS 2-benign 5 year breast cancer risk assessment 1.7 % Lifetime breast cancer risk assessment 6.1 % Breast cancer risk category Low (<15%) Procedure Note Vijaya Abdul MD - 06/05/2022 This is a summary report. The complete report is available in thepatient's medical record. If you cannot access the medical record, pleasecontact the sending organization for a detailed fax or copy. Exam: Diagnostic mammogram History: 0.8 cm right medial breast nodule on outside chest CT scan06/24/2019 Findings: Digital bilateral full-field diagnostic mammography is performedand interpreted with the aid of computer-aided detection. Comparison ismade with 06/27/2018 and as far back as 04/30/2013. Correlation made withthe chest CT 06/24/2019. Breast parenchyma is predominantly fatty replaced. Two ovoid circumscribednodules measuring 1 cm in the right breast are stable as far back as106/30/2012. These are located in the inner breast just below the level ofthe nipple and in the slightly lower and slightly outer breast. Themedial nodule corresponds with the finding on CT. No new suspicious mass,architectural distortion, or suspicious calcifications. Impression: The right breast nodule on the outside chest CT correspondswith a chronic finding on mammography which is stable as far back as 2012.No mammographic evidence of malignancy in either breast. BI-RADS 2-benign 5 year breast cancer risk assessment 1.7 % Lifetime breast cancer risk assessment 6.1 % Breast cancer risk category Low (<15%) Ivett Tolentino MD IMG BI PROCEDURES Final Result from Last 3 Months or Most Recently Relevant to Health Maintenance Insurance MEDICARE MEDICAID - [place] Care Teams Vinyl Installer Relationship Specialty Start Date End Date Ivett Blas MD [address] [facility] [address] [place] [phone] PCP - General 04/24/23
--- OUTSIDE RECORDS SUMMARY | 2024-08-10 10:58 | XMS_ITS ---
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 (Primary) (J44.1 - ICD-10-CM) ACTIVE 05/09/2024 ACUTE AND CHRONIC RESPIRATOR Y FAILURE WITH HYPOXIA (J96.21 - ICD-10-CM) ACTIVE 05/09/2024 ACUTE ON CHRONIC DIASTOLIC ( CONGESTIVE) HEART FAILURE (I50.33 - ICD-10-CM) ACTIVE 05/09/2024 HYPOTHYROIDISM, UNSPECIFIED (E03.9 - ICD-10-CM) ACTIVE 05/09/2024 TYPE 2 DIABETES MELLITUS WIT H HYPERGLYCEMIA (E11.65 - ICD-10-CM) ACTIVE 05/09/2024 GASTRO-ESOPHAGEAL REFLUX DIS EASE WITHOUT ESOPHAGITIS (K21.9 - ICD-10-CM) ACTIVE 05/09/2024 PNEUMONIA, UNSPECIFIED ORGANISM (J18.9 - ICD-10-CM) AC TIVE 05/09/2024 MORBID (SEVERE) OBESITY DUE TO EXCESS CALORIES (E66.01 - ICD-10-CM) ACTIVE 05/11/2024 UNSPECIFIED PROTEIN-CALORIE MALNUTRITION (E46 - ICD-10 -CM) ACTIVE 05/09/2024 Encounters Encounter Performer Performer Role Encounter Diagnoses Location Date Discharge - Discharged / Transferred to home under care of organized home health service organization - [facility] - Private home/apt. with home health services [facility] 4 02:05 pm EST - 4 08:15 pm EST Immunizations Vaccine Date (Pneumococcal) PCV20- Conjugate 20-dipesh t Vaccine 04/03/2023 12:00 am EDT Social History Vital Signs Vital Sign Reading Time Taken bloodSugar 221 mg/dL 05/12/2024 05:44 pm EST bloodSugar 244 mg/dL 05/12/2024 12:23 pm EST bloodSugar 198 mg/dL 05/12/2024 09:30 am EST oxygenSaturation 93 % 05/12/2024 01:4 9 pm EST oxygenSaturation 96 % 05/11/2024 07:1 1 pm EST heartrate 82 /min 05/12/2024 01:49 pm EST heartrate 90 /min 05/11/2024 07:11 pm EST temperature 98.1 [degF] 05/12/2024 01:49 pm EST temperature 98 [degF] 05/11/2024 07:11 pm EST systolicValue 145 mm[Hg] 05/12/2024 01:49 pm EST diastolicValue 72 mm[Hg] 05/12/2024 01:49 pm EST systolicValue 145 mm[Hg] 05/12/2024 09:30 am EST diastolicValue 72 mm[Hg] 05/12/2024 09:30 am EST systolicValue 154 mm[Hg] 05/11/2024 07:11 pm EST diastolicValue 74 mm[Hg] 05/11/2024 07:11 pm EST respirations 18 /min 05/12/2024 01:49 pm EST respirations 18 /min 05/11/2024 07:11 pm EST painLevel 0 {score} 05/12/2024 11:22 am EST weight 181.4 [lb_av] 05/12/2024 06:13 am EST
== END 2024-08-10 10:28 | disposition home or self-care (01) ==
PROVIDERS: PCP Internal Medicine; Visit Provider Hospitalist
DX: R91.8 Other nonspecific abnormal finding of lung field (principal); J96.11 Chronic respiratory failure with hypoxia; J43.2 Centrilobular emphysema; K21.9 Gastro-esophageal reflux disease without esophagitis; K44.9 Diaphragmatic hernia without obstruction or gangrene; J18.9 Pneumonia, unspecified organism
CPT/HCPCS: 99214; G2211

== ENCOUNTER → 2024-08-10 09:54 | Outpatient (BNVA) | payer MEDICARE, MEDICAID, SELFPAY | PROVIDERS: PCP Internal Medicine; Visit Provider Hospitalist | DX: J18.9 Pneumonia, unspecified organism (principal); J96.11 Chronic respiratory failure with hypoxia; J43.2 Centrilobular emphysema; R91.8 Other nonspecific abnormal finding of lung field; K21.9 Gastro-esophageal reflux disease without esophagitis; K44.9 Diaphragmatic hernia without obstruction or gangrene | CPT/HCPCS: 99212 ==

== ENCOUNTER 2024-09-17 10:24 | Outpatient (REF) | payer MEDICARE, MEDICAID, SELFPAY ==
--- NOTE | ~2024-09-17 | XR_ITS ---
CLINICAL HISTORY: J18.9 - Pneumonia, unspecified organism 2 view chest x-ray Comparison: 07/06/2024 Findings: The lungs are clear. Normal size heart. No acute fracture. IMPRESSION: 1. No acute findings. This document has been electronically signed by: Feliberto Saenz MD on 09/19/2024 07:55:20
[2024-09-17 10:40] LABS: MANUAL DIFF FLAG NO
[2024-09-17 10:46] LABS: Venous Blood Gas Refer to POC result
[2024-09-17 10:47] LABS: VBG Base Excess 7.6 mmol/L; VBG HCO3 36 mmol/L (22-26); VBG pCO2 66 mmHg; VBG pH 7.33 (7.32-7.43); VBG pO2 41 mmHg
--- OUTSIDE RECORDS SUMMARY | 2024-09-17 11:26 | XMS_ITS | Clinical Summary ---
Author Organization [facility] Address [address] [place] [address] Phone Care Team Providers Care Independent Sales Representative Name Role Phone Ivett Blas MD Primary Care Provider Medications omeprazole (PriLOSEC) [address] capsule TAKE 1 CAPSULE BY MOUTH IN A.M. ON EMPTY STOMACH WAIT 30 MINUTES AND THEN EAT TO ACTIVATE MEDICATION 90 capsule 3 Active Encounters Date Type Department Care Team Description 06/29/2024 9:08 AM EST - 06/29/2024 11:59 PM EST Hospital Encounter [facility] CT Scan [address] [place] [address] Compression of vein Discharge Disposition: Home or Self Care from Last 3 Months Surgical History Surgery Date Site/Laterality Comments SECTION PROCEDURE: [place] DELIVERY ONLY; COMMENT: x1 OTHER SURGICAL HISTORY PROCEDURE: [place] LIG/TRNSXJ FLP TUBE ABDL/VAG APPR UNI/BI TONSILLECTOMY ADENOIDECTOMY, BILATERAL MYRINGOTOMY AND TUBES PROCEDURE: [place] TONSILLECTOMY & ADENOIDECTOMY <AGE 14 OTHER SURGICAL HISTORY 2003 PROCEDURE: [place] CLSR RECTOVAGINAL FISTULA ABDOMINAL APPROACH; COMMENT: Dr. Díaz OTHER SURGICAL HISTORY 2016 Right PROCEDURE: [place] ICAPSULAR CATARACT XTRJ INSJ IO LENS PRSTH [...] Vaccines (1 of 2) 2002 RSV Immunization Adult Patients (1 - Risk 60-74 years 1-dose series) [...] Signed Date: 07/06/2024 13:53 ET Workstation ID: [id number] Transcribed By: Self Edit Transcribed Date: 07/06/2024 [...] Signed Date: 07/06/2024 13:53 ET Workstation ID: [id number] Transcribed By: Self Edit Transcribed Date: 07/06/2024 13:32 ET us Durga Manrique MD IMG CT PROCEDURES Final Re sult * DX [...] Insurance MEDICARE [place]ICA[place] - [place] Care Teams Independent Sales Representative Relationship Specialty Start Date End Date Ivett Blas MD [address] [facility] [address] [place] [address] PCP - General 04/24/23
[2024-09-17 11:51] LABS: Basophils Absolute Auto 0.1 X10*3/uL (0.0-0.2); Basophils Percent Auto 0.4 % (0-2); Eosinophils Absolute Auto 0.2 X10*3/uL (0.0-0.4); Eosinophils Percent Auto 1.9 % (0-4); Hematocrit 42.7 % (37.0-47.0); Hemoglobin 12.9 g/dl (12.0-16.0); Imm Gran Abs Auto 0.09 X10*3/uL (0.00-0.03); Imm Gran Pct Auto 0.7 % (0.0-0.4); Lymphocytes Absolute Auto 2.4 X10*3/uL (1.2-4.9); Lymphocytes Percent Auto 19.8 % (20-40); Mean Corpuscular HGB Conc 30.2 g/dl (31.0-35.0); Mean Corpuscular Hemoglobin 27.6 pg (27.0-33.0); Mean Corpuscular Volume 91.4 fL (80.0-98.0); Mean Platelet Volume 9.5 fL (9.4-12.3); Monocytes Absolute Auto 0.9 X10*3/uL (0.1-1.2); Monocytes Percent Auto 7.2 % (2-11); Neutrophils Absolute Auto 8.6 x10*3/uL (2.0-8.3); Platelet Count 223 X10*3/uL (160-400); Red Blood Count 4.67 X10*6/uL (4.20-5.50); Red Cell Distribution Width 14.3 % (11.0-16.0); White Blood Count 12.2 X10*3/uL (4.8-10.8)
[2024-09-17 12:24] LABS: Anion Gap 9 (12-20); Blood Urea Nitrogen 20 mg/dL (9-16); Calcium 9.5 mg/dL (8.4-10.2); Carbon Dioxide 33 mmol/L (22-29); Chloride 104 mmol/L (96-108); Estimated Glomerular Filt Rate > 60; Glucose Random 145 mg/dL (60-115); Potassium 4.3 mmol/L (3.3-5.1); Sodium 142 mmol/L (135-145)
[2024-09-17 12:29] LABS: Erythrocyte Sedimentation Rate 10 MM/HR (0-20)
== END 2024-09-17 10:25 | disposition home or self-care (01) ==
LOC: HO.XRAY 10:24
PROVIDERS: PCP Internal Medicine; Visit Provider Hospitalist
DX: J43.2 Centrilobular emphysema (principal); J96.11 Chronic respiratory failure with hypoxia; J18.9 Pneumonia, unspecified organism
CPT/HCPCS: 36415; 71046; 80048; 82803; 85025; 85652

== ENCOUNTER → 2024-09-17 10:45 | Outpatient (BNV) | payer MEDICARE, MEDICAID, SELFPAY | PROVIDERS: PCP Internal Medicine; Visit Provider Specialist | DX: J18.9 Pneumonia, unspecified organism (principal) | CPT/HCPCS: 71046 ==

== ENCOUNTER 2024-10-26 13:24 | Outpatient (AMB) | payer MEDICARE, MEDICAID, SELFPAY ==
[2024-10-26 13:28] VITALS: BP 150/68; PULSE 63; O2SAT 94; BMI 38.3
--- NOTE | 2024-10-26 13:28 | A.OFFVIS_ITS ---
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 She is O2 dependent. Today she came in and her pulse conserving device. We took her off and placed on room air 5 minutes. Quickly her oxygen decreased to 88%. She needs stay on her oxygen supplementation continuously. We will submit this re- certification to her current [employer] company, by [employer]. In meantime she has been followed with the lung cancer screening program. Over the summer 2018 she did have an episode of pneumonia that resulted in a brief hospitalization after failed outpatient therapy. Initially she received doxycycline. Then she was admitted to the hospital normal. Overall she feels a little better this time. The patient also had a CT scan of the chest that we personally reviewed. She appears to have some increased airspace disease and some bronchitis looking airways primarily on the right lung. This is likely residual to her recent infection back in February. In the meantime her pulmonary nodule on the right is measuring about 8 mm in size and appears to have filled in more than before when I compared to her CT scan from July 2018. Therefore, we'll closely follow this nodule and another 3 months. She stated do a CT scan of the chest ruling out pulmonary emboli. The did find a small but enlarging right breast nodule. She will be following up with this. We did look at her older CT scan from 2019 which demons. She did have a recent CT scan of the chest as a follow- up for her last 1 in June 2019 at [facility]. It appeared that she has a new patchy area of consolidation which is masslike in addition to some areas of ground-glass opacities. This is new when compared to her CT scan from [facility]. This is suggestive process possibly of an infectious process versus a noninfectious inflammatory process. Less likely malignancy although is in the differential. The patient is agreeable to undergo blood work and also bronchoscopy. Will try to schedule it as well as possible in order to properly treat with antibiotics as necessary for ongoing lower respiratory infection. 04/03/2023 the patient is here for pulmonary follow-up visit. She does complain of worsening dyspnea on exertion. Even at rest. She has been using the oxygen continuously. However, even with the oxygen even going up to 3 L she is still short of breath. She has significant air trapping that is likely contributing to her worsening dyspnea symptoms. The patient did have a CT scan of the chest which we personally reviewed. Significant improvement in the nodular densities that she had in the right lower lobe. Suggesting more infectious process. She continues on the azithromycin 3 times a week. She will continue this therapy for now. 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 The patient will need to undergo pulmonary function studies and highly recommend starting pulmonary rehabilitation again. The patient is very deconditioned and with significant air trapping worsening dynamic inspiratory capacity this will continue to get worse if she does not get active. She will continue with current respiratory therapy. Will follow-up in 4-6 months. 09/02/2023 the patient is here for a pulmonary follow-up visit. The patient continues to complain of dyspnea on exertion. Now is worse even at rest moderate severity. With activity she has had 2 in increase her oxygen to 4 L to keep up with her activities of daily living. She is still sleeping 3 L at nighttime. The patient was participating in the pulmonary rehab and she did find it helpful. But then she got sick with a viral syndrome she was not sure if she got sick there. She is finally better even after having COVID afterwards. Now she is ready to go back to rehab because she did like it she was feel like she was getting something not. The patient feels like her breathing is worse she took some prednisone a few days ago that helped her breathing. She is already on Trelegy. She has a hard time with a nebulizer with albuterol because it caused her palpitations and tremulousness. Explained to the patient that she does have some increased wheezing on examination although is difficult to treat based on the fact that she has a cardiac issues. Initially had did recommend the patient start ipratropium nebulizer therapy to use twice a day. However, the patient returned her nebulizer because she was not using it. Will have her undergo a blood test today she was supposed have blood gas before will go ahead and repeat the blood gas and see if she has any worsening of her hypercarbic respiratory failure. The patient will benefit from noninvasive ventilator to help her with respiratory failure. On the patient may be reluctant at this time. I will talk to the patient and also to the [employer] company to see if we can make it work for the patient. 05/05/2024 the patient is here for sick visit. She has had worsening respiratory symptoms for the last 2 weeks. She had call the office with worsening respiratory symptoms and we did prescribe her some prednisone and antibiotics. She did not complete the prednisone because she did not think they were helping but she did complain antibiotics. She feels like she has a cough. Difficult to expectorate. She has also noticed some increasing heaviness in the chest area. She has been desaturating more regularly now down to the mid 60s on the 3 L of oxygen at home. When she came in today with her conserving device at 3 L pulse she was down with a pulse ox in the 70s. We quickly switched over to 4 L continuous in her oxygen did improve briefly to around 86 87%. Then improved to 89%. But still unclear. Respiratory exam with diminished breath sounds no significant wheezing or rhonchi or crackles. She does have some lower extremity edema. In view of the worsening hypoxia and concerns for end-organ damage I did recommend she go to the ER. I did call the ER triage so they know about her. I do believe that ruling out thromboembolic disease will be important also considering blood work to better address her symptoms. She is reluctant to stay in the hospital but she is willing to be evaluated in the ER this time. 06/15/2024 the patient is here for a pulmonary follow-up visit. Overall she is feeling little better for respiratory status. She does have some nasal congestion her. She is going to see ENT doctor soon. In the meantime she has been using the oxygen with good effect. Trying to maintain a pulse ox within 88-94%. The patient does well with a conserving device. She does use it around 4 L pulse. Although she would like a portable oxygen concentrator to have better portability outside of the home. She has been getting her oxygen through [facility] for many years. Will go ahead and request a POC through them. We did do another walking oximetry. The patient did desaturate at rest and also with activity. She was able to maintain a pulse ox of 91% on 4 L pulse. Therefore request a POC from her current [employer] company at this time. In the meantime she is going to have additional imaging studies done mid June to follow-up with the pneumonia. The patient also has been using her respiratory therapy with good effect. 08/10/2024 the patient is here for pulmonary follow-up visit. Overall she is feeling better. She did start physical therapy and occupational therapy. She is looking to continue pulmonary rehabilitation. The POC has been very affecting beneficial. She has also been able to decrease the oxygen in her home since her oxygen levels have been much better. While decreasing her oxygen her headaches have gotten also better. Was all reassuring. The patient did have blood work done her CO2 is also been decreasing which is good. Will plan to repeat the blood work in 3-4 months. In the meantime she also had a chest x-ray in June. I personally reviewed. Appears that the airspace disease better although she still has some residual findings. Therefore have her get an x-ray sometime next month to make sure that it continues to improve. She continues use her respiratory therapy with good effect. She has been on the azithromycin 3 times a week for chronic bronchitis. Will see if we can wean her off at this time. We did talk about PD4 inhibitors both inhaled and also by mouth. She will consider these medications were very now she is doing well. 10/26/2024 the patient is here for pulmonary follow-up visit. Overall she is doing well. She is here for a follow-up routine visit. Denies any active res piratory issues. She is using her oxygen with good effect. She did have blood work done her CO2 was little elevated at 66 mmHg. She understands if she has chronic hypercarbic and hypoxic respiratory failure. I did offer her noninvasive ventilator with the patient does not feel comfortable using a mask over her face. She gets claustrophobic. Therefore something to consider. Which were rechecked the blood gas again in the fall to make sure that is not rising. She is working hard with physical therapy and occupational therapy to strengthen his lungs and a respiratory capacity and I do believe does helping overall. She did go back on the azithromycin 3 times a week since she felt lot better on it once he came off. The patient will need to get another EKG. She will either get her with cardiology or put in order here that she can get in the next month or 2. The patient follow-up in 4-6 months if she has any issues prior to this she will call for an earlier assessment. [facility] Medical History Hiatal hernia GERD (gastroesophageal reflux disease) Lung mass TIA (transient ischemic attack) CAD (coronary artery disease) Pneumonia Chronic respiratory failure Pulmonary nodules Insomnia Centrilobular emphysema Family History Other HTN (hypertension) Social History Alcohol intake: never Comment: pt refuses bed alarm Patient Tobacco Use Status: Former Tobacco user Tobacco use type: Cigarette Years Smoked: 30 years service: No Review of Systems Const Denies chills, Denies fatigue, Denies fever(s), Denies weight gain and Denies weight loss ENT Denies dizziness, Denies lip swelling and Denies tongue swelling Card Denies chest pain, Denies leg edema, Denies lightheadedness, Denies palpitations, Reports dyspnea on exertion, Denies orthopnea and Denies other Resp Reports cough and Reports dyspnea on exertion GI Denies hematochezia and Denies change in stool character Musc Denies abnormal gait, Denies muscle weakness, Denies numbness, Denies radiating pain into limb and Denies tingling Neuro Denies abnormal gait, Denies dizziness, Denies numbness and Denies tingling Psych Denies no additional complaints Endo Denies fatigue and Denies palpitations Adonis/Lymph Denies easy bleeding and Denies lymphadenopathy Aller/Immun Denies lip swelling and Denies tongue swelling Physical Exam Vital Signs: Last Vital Signs Pulse 63 10/26/24 13:28 BP 150/68 H 10/26/24 13:28 Pulse Ox 94 10/26/24 13:28 Oxygen Delivery Method Room Air 10/26/24 13:28 Oxygen Flow Rate 2 10/26/24 13:28 BMI result Body Mass Index 38.3 Const General: alert Eyes Pupils: Equal, round and reactive pupils present Neck Neck: Yes normal visual inspection, Yes full ROM and Yes no lymphadenopathy Chest Chest palpation & inspection: normal inspection of the chest Resp Effort & Inspection: normal respiratory effort Auscultation: no crackles, no rales, no wheezes and diminished lung sounds Cardio Rate: regular rate Rhythm: regular rhythm Heart sounds: S1 normal heart sound present and S2 normal heart sound present GI Palpation (GI): Soft to palpation and nontender Auscultation: normal bowel sounds General: Yes no CVA tenderness Back/Spine/Pelvis Back: no CVA tenderness Skin General skin exam: rashes and/or lesions noted Neuro Cranial nerves: Yes Equal, round and reactive pupils present Extrem General: No clubbing, No cyanosis and Yes edema Assessment & Plan Assessment & Plan (1) Pulmonary nodules: Code(s): R91.8 - Other nonspecific abnormal finding of lung field Category: Medical (2) Chronic respiratory failure: Comment: O2 dependant Code(s): J96.10 - Chronic respiratory failure, unspecified whether with hypoxia or hypercapnia Category: Medical Qualifiers: Respiratory failure complication: hypoxia Qualified Code(s): J96.11 - Chronic respiratory failure with hypoxia (3) Centrilobular emphysema: Code(s): J43.2 - Centrilobular emphysema Category: Medical (4) GERD (gastroesophageal reflux disease): Code(s): K21.9 - Gastro-esophageal reflux disease without esophagitis Category: Medical Qualifiers: Esophagitis presence: without esophagitis Qualified Code(s): K21.9 - Gastro-esophageal reflux disease without esophagitis (5) Hiatal hernia: Code(s): K44.9 - Diaphragmatic hernia without obstruction or gangrene Category: Medical (6) Community acquired pneumonia: Code(s): J18.9 - Pneumonia, unspecified organism Category: Medical Qualifiers: Laterality: unspecified laterality Qualified Code(s): J18.9 - Pneumonia, unspecified organism Plan oxygen: POC for better portability outside of the home. Requesting oxymask to use with oxygen while sleepinL at rest and sleeping 4L/pulse with activity continue Trelegy 200->100mcg continue oxygen supplementation continue Azithromycin MWF,EKG continue reflux diet continue PPI CXR next month Bloodwork, bloodgas prior to next visit continue Pulmonary rehab/PT/OT Follow-up in 3-4 month Orders: Orders ECG 12 lead EKG Today J44.9 - Chronic obstructive pulmonary disease, unspecified Medications: New [id number]-rcmqztozk-[id number] 100-62.5-25 mcg (Trelegy Ellipta) 1 inh inhalation DAILY 60 ea 11RF 30 days J44.9 - Chronic obstructive pulmonary disease, unspecified Discontinued enlsjopbqbl-lzeqlwjed-uvvdlzzl 200-62.5-25 mcg (Trelegy Ellipta) Discontinued Reason: Doctor's Order 1 inh inhalation DAILY 60 ea 6RF Coding Level of Care Code Est Pt Level 4 (27464) Complex EM visit Add On G2211 Diagnoses Pulmonary nodules R91.8 Chronic respiratory failure with hypoxia J96.11 Respiratory failure complication: hypoxia Centrilobular emphysema J43.2 Gastroesophageal reflux disease without esophagitis K21.9 Esophagitis presence: without esophagitis Hiatal hernia K44.9 Community acquired pneumonia, unspecified laterality J18.9 Laterality: unspecified laterality Time Spent (min) 17
--- OUTSIDE RECORDS SUMMARY | 2024-10-26 13:44 | XMS_ITS | Data Portability ---
Author Organization [place] - [facility], Allergy Address [address] [place] [phone] Care Team Providers Care Firer Bisque Kiln Name Role Phone ANISA LAUREN Referring Provider Assessment Encounter Date Assessment Date Assessment LastModified by Organization Details LastModified Time 07/21/2024 07/21/2024 Nasal symptom of discomfort on the right side is likely in a location where the nasal cannula touches her deviated nasal septum. She recalls nasal trauma as a child likely with nasal fracture. At this time no specific intervention is recommended. Her hearing loss may be improved with bilateral amplification evaluation through [facility]. 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 Lab None record ed. Referral None record ed. Procedures None record ed. Surgeries None record ed. Imaging None record ed. Medication Orders None record ed. Patient TargetsNo targets recorded. Patient InstructionsNo instructions recorded. Reason for Referral None Reported. Results Created Date Observation Date Name Description Value Unit Range Abnormal Flag Note LastModifiedBy Organization Detail LastModifiedTime 07/22/19 25 audio gram No observ ation record ed. BARCODE Not Available 2024 14:05:40 Result Notes None recorded. Problems Name Problem SNOMED Code Status Onset Date Resolution Date Notes Provider Name and Address Organization Details Recorded Time Hypertrop hy of nasal turbinate s 43113960 Active 2014 Hypertrop hy of nasal turbinate s; Note: Date Diagnosed : 5 5:47 AM (J34.3) Note: Date Diagnosed : 5 5:47 AM (J34.3) Not Available [facility] 4 01:25:33 Acute sialoaden itis 063048148 Active 2017 Acute sialoaden itis; Note: Date Diagnosed : 11/22/2017 2:14 PM (K11.21) Note: Date Diagnosed : 11/22/2017 2:14 PM (K11.21) Not Available [facility] 4 01:25:33 Acute maxillary sinusitis 57257057 Active 2014 Acute maxillary sinusitis , unspecifi ed; Note: Date Diagnosed : 5 8:21 PM (J01.00) Note: Date Diagnosed : 5 8:21 PM (J01.00) Not Available [facility] 4 01:25:33 Deviated nasal septum 373191127 Active 2014 Deviated nasal septum; Note: Date Diagnosed : 5 5:47 AM (J34.2) Note: Date Diagnosed : 5 5:47 AM (J34.2) BERT ARNETT MD [address] [place] [address], [facility] [place], [address] , [facility] - [facility] 5 16:07:05 Sensorine ural hearing loss of bilateral ears 559370899 Active 2017 Sensorine ural hearing loss, bilateral ; Note: Date Diagnosed : 11/22/2017 11:50 AM (H90.3) Note: Date Diagnosed : 11/22/2017 11:50 AM (H90.3) Not Available [facility] 4 01:25:33 Nasal congestio n 45743953 Active 2014 Nasal congestio n; Note: Date Diagnosed : 5 8:21 PM (R09.81) Note: Date Diagnosed : 5 8:21 PM (R09.81) Not Available [facility] 4 01:25:33 Posterior rhinorrhe a 84039624 Active 2014 Postnasal drip; Note: Date Diagnosed : 5 8:21 PM (R09.82) Note: Date Diagnosed : 5 8:21 PM (R09.82) Not Available [facility] 4 01:25:34 Mixed conductiv e and sensorine ural hearing loss of left ear [id number] 107 Active 2024 GURMEET RIVERA, AUD [address] [facility],[place] [address], [place], [address] , [facility] 5 15:20:58 Problem Notes None recorded. Procedures Surgical History Date Name Laterality Status Provider Name and Address Organization Details Recorded Time 07/21/2024 Comp Audio with Tymps - 27794 & 59246 completed GURMEET RIVERA, AUD [address] [facility],[place] [address], [place], [address], [facility] 07/21/2024 15:22:02 Imaging Results Imaging Date Name Status LastModified by Organiz ation Details LastModified Time 07/22/2024 audiogram completed BARCODE Information no t available 07/22/2024 14:05:40 Procedure Notes None recorded. Medical Equipment None Reported. Allergies Allergen ID Allergen Name Allergen Category Reaction Reaction Severity Criticality Documentation Date Start Date Code Code System Note Provider Name and Address Organization Details Recorded Time 497090 morphine medicatio n other Not available Not available 10/29/2023 7052 RxNorm React ion: unkno wn, unspe cifie d;; Not Available [facility] 4 01:26:01 Medications Name Sig Start Date Stop Date Status Note LastModified by Organization Details LastModified Time atorvasta tin 80 mg tablet TAKE 1 TABLET BY MOUTH EVERY DAY AT NIGHT 07/21 completed Not Available Not Available Not Available prednison e 10 mg tablet PLEASE SEE ATTACHED FOR DETAILED DIRECTIO NS 07/21 completed Not Available Not Available Not Available doxycycli ne hyclate 100 mg capsule TAKE 1 CAPSULE ORALLY 2 TIMES A DAY FOR 7 DAYS 07/21 completed Not Available Not Available Not Available azithromy rox 250 mg tablet TAKE 1 TABLET BY MOUTH THREE TIMES A WEEK 07/21 completed Not Available Not Available Not Available benzonata te 200 mg capsule TAKE 1 CAPSULE BY MOUTH 2 TIMES A DAY NEEDED FOR COUGH FOR 30 DAYS 07/21 completed Not Available Not Available Not Available prednison e 20 mg tablet TAKE 2 TABS DAILY X 5 DAYS, THEN 1 TABLET DAILY X 5 DAYS 07/21 completed Not Available Not Available Not Available omeprazol e 40 mg capsule,d elayed release TAKE 1 CAPSULE BY MOUTH IN A.M. ON EMPTY STOMACH WAIT 30 MINUTES AND THEN EAT TO ACTIVATE MEDICATI ON active Not Available Not Available No t Available levothyro xine 25 mcg tablet TAKE 1 TABLET BY MOUTH EVERY DAY 07/21 completed Not Available Not Available Not Available levothyro xine 75 mcg tablet TAKE 1/2 TABLET BY MOUTH DAILY 07/21 completed Not Available Not Available Not Available bisoprolo l fumarate 5 mg tablet TAKE 1 TABLET BY MOUTH EVERY DAY active Not Available Not Available No t Available Fosamax 70 mg tablet 07/21 completed Medicati on ID: [id number] B rand Name: Fosamax Send Method: E-Prescr ibed Sub s Allowed: subs OK Medic ationGen ericName : Fosamax Medicati on ID: [id number] B rand Name: Fosamax Send Method: E-Prescr ibed Sub s Allowed: subs OK Medic ationGen ericName : Fosamax Not Available Not Available Not Available lisinopri l 10 mg tablet 07/21 completed Medicati on ID: [id number] B rand Name: lisinopr il Send Method: E-Prescr ibed Sub s Allowed: subs OK Medic ationGen ericName : lisinopr il Medic ation ID: [id number] B rand Name: lisinopr il Send Method: E-Prescr ibed Sub s Allowed: subs OK Medic ationGen ericName : lisinopr il Not Available Not Available Not Available nitroglyc sandhya 0.4 mg sublingua l tablet PLEASE SEE ATTACHED FOR DETAILED DIRECTIO NS active Not Available Not Available No t Available aspirin 81 mg chewable tablet 2014 active Medicati on ID: [id number] B rand Name: aspirin Send Method: E-Prescr ibed Sub s Allowed: subs OK Medic ationGen ericName : aspirin Medicati on ID: [id number] B rand Name: aspirin Send Method: E-Prescr ibed Sub s Allowed: subs OK Medic ationGen ericName : aspirin Not Available Not Available Not Available furosemid e 20 mg tablet TAKE 1 TABLET BY MOUTH EVERY DAY 07/21 completed Not Available Not Available Not Available levofloxa rox 500 mg tablet TAKE 1 TABLET BY MOUTH EVERY DAY FOR 7 DAYS 07/21 completed Not Available Not Available Not Available zolpidem 10 mg tablet TAKE 1 TABLET BY MOUTH EVERYDAY AT BEDTIME 07/21 completed Not Available Not Available Not Available albuterol sulfate HFA 90 mcg/actua tion aerosol inhaler TAKE 1 PUFF BY MOUTH EVERY 4-6 HOURS NEEDED 07/21 completed Not Available Not Available Not Available lisinopri l 40 mg tablet TAKE 1 TABLET BY MOUTH DAILY AT NOON active Not Available Not Available No t Available Os-Juni 500 + D3 500 mg-5 mcg (200 unit) tablet 2014 active Medicati on ID: [id number] B rand Name: Os-Juni 500 + D3 Send Method: E-Prescr ibed Sub s Allowed: subs OK Medic ationGen ericName : Os-Juni 500 + D3 Medic ation ID: [id number] B rand Name: Os-Juni 500 + D3 Send Method: E-Prescr ibed Sub s Allowed: subs OK Medic ationGen ericName : Os-Juni 500 + D3 Not Available Not Available Not Available Vitamin D3 25 mcg (1,000 unit) capsule 2014 active Medicati on ID: [id number] B rand Name: Vitamin D3 Send Method: E-Prescr ibed Sub s Allowed: subs OK Medic ationGen ericName : Vitamin D3 Medic ation ID: [id number] B rand Name: Vitamin D3 Send Method: E-Prescr ibed Sub s Allowed: subs OK Medic ationGen ericName : Vitamin D3 Not Available Not Available Not Available Symbicort 80 mcg-4.5 mcg/actua tion HFA aerosol inhaler 07/21 completed Medicati on ID: [id number] B rand Name: Symbicor t Send Method: E-Prescr ibed Sub s Allowed: subs OK Medic ationGen ericName : Symbicor t Medica tion ID: [id number] B rand Name: Symbicor t Send Method: E-Prescr ibed Sub s Allowed: subs OK Medic ationGen ericName : Symbicor t Not Available Not Available Not Available Spiriva Respimat 1.25 mcg/actua tion solution for inhalatio n 07/21 completed Medicati on ID: [id number] B rand Name: Spiriva Respimat Send Method: E-Prescr ibed Sub s Allowed: subs OK Medic ationGen ericName : Spiriva Respimat Medicat ion ID: [id number] B rand Name: Spiriva Respimat Send Method: E-Prescr ibed Sub s Allowed: subs OK Medic ationGen ericName : Spiriva Respimat Not Available Not Available Not Available Trelegy Ellipta 100 mcg-62.5 mcg-25 mcg powder for inhalatio n INHALE 1 PUFF DAILY 07/21 completed Not Available Not Available Not Available Trelegy Ellipta 200 mcg-62.5 mcg-25 mcg powder for inhalatio n INHALE 1 PUFF DAILY active Not Available Not Available No t Available Vitals Date Recorded Body height Body mass index (BMI) Body weight Provider Name and Address Organization Details Last Updated DateTime 07/21/2024 149.86 cm 36.6 kg/m2 53263.22 g Taylor Erwin [place] - [facility] 07/21/2024 15:43:36 Social History None recorded. Functional Status None recorded. Mental Status None recorded. Family History Nothing Reported. Medical History No medical history recorded. Gynecological HistoryNo gynecological history recorded. Obstetrics History GPAL:G 0 P 0 0 0 0 Past Encounters Encounter ID Performer Location Encounter Start Date Encounter Closed Date Diagnosis/Indication Diagnosis SNOMED-CT Code Diagnosis ICD10 Code Diagnosis Note [id number] BERT ARNETT MD [facility] [address] [address] 07/21/2024 14:50:54 07/21/2024 16:07:37 Deviated nasal septum 136739043 J34.2 Mixed cond uctive and sensorineural hearing loss of left ear 2350240486 9107 H90.A32 [id number] [facility] [address] [place] [phone] 07/21/2024 15:20:29 07/22/2024 07:50:05 Mixed conductive and sensorineural hearing loss of left ear [id number] 9107 H90.A32 Audiologic al evaluation results: 07/21/2024 Right ear: {{Normal* Normal through 2 kHz Mild M oderate Mo derately-s evere Jeanine re Profoun d}} {{hearing hearing. s loping to a mild slopi ng to a moderate* sloping to moderately severe slo ping to severe slo ping to profound f lat high frequency low frequency mid frequency cookie bite casanova curve}} {{with sen sorineural hearing loss with* cond uctive hearing loss with mixed hearing loss with}} {{excellen t* good fa ir poor no measurable }} word recognitio n. Left ear: {{Normal N ormal through 2 kHz Mild* Moderate M oderately- severe Sev ere Profou nd}} {{hearing hearing. s loping to a mild slopi ng to a moderate s loping to moderately severe* sl oping to severe slo ping to profound f lat high frequency low frequency mid frequency cookie bite casanova curve}} {{with sen sorineural hearing loss with condu ctive hearing loss with mixed hearing loss with*}} {{excellen t* good fa ir poor no measurable }} word recognitio n. Tympanomet ry: Right Ear:{{Type A* Type As Type Ad Type C Type C, shallow & rounded Ty pe B Type B with large volume Cou ld not maintain a hermetic seal}} Left Ear:{{Type A Type As* Type Ad Type C Type C, shallow & rounded Ty pe B Type B with large volume Cou ld not maintain a hermetic seal}} Health Concerns Section Related Observation LastModified by Organization Detai ls LastModified Time None Recorded Concern Status LastModified by Organization Details LastModified Time None Recorded Advance Directives Directive None Recorded Payers Insurance Date Sequence Insurance Name Policy Number Policy Jeffrey Covered Member ID Jeffrey Member ID Guarantor Name 07/21/2024 1 [place] [employer] Carolin Jimenez [id number] Carolin Jimenez 07/21/2024 2 [place] [facility] Dwain Jimenez [id number] Carolin Jimenez Notes Date Note Type Note Provider Name and Address Organization Details Recorded Time 07/21/2024 text/html hearing lossoxyg en portable, nasal canulaTV is gradually getting louder occasional epistaxis, tear ducts have been blown outsuspects she had some nasal trauma from childhood BERT ARNETT MD [address] [place] [address], [place], [address], [facility] - [facility] 07/21/2024 16:08:42 OBGyn Episode No OBEpisode recorded.
--- OUTSIDE RECORDS SUMMARY | 2024-10-26 13:44 | XMS_ITS | Clinical Summary ---
Author Organization [facility] Address [address] [facility] [place] [address] Phone Care Team Providers Care Director Of Customer Service Name Role Phone Ivett Blas MD Primary Care Provider Medications omeprazole (PriLOSEC) [address] capsule TAKE 1 CAPSULE BY MOUTH IN A.M. ON EMPTY STOMACH WAIT 30 MINUTES AND THEN EAT TO ACTIVATE MEDICATION 90 capsule 3 5 Active Surgical History Surgery Date Site/Laterality Comments SECTION PROCEDURE: IA DELIVERY ONLY; COMMENT: x1 OTHER SURGICAL HISTORY PROCEDURE: [place] LIG/TRNSXJ FLP TUBE ABDL/VAG APPR UNI/BI TONSILLECTOMY ADENOIDECTOMY, BILATERAL MYRINGOTOMY AND TUBES PROCEDURE: IA TONSILLECTOMY & ADENOIDECTOMY <AGE 14 OTHER SURGICAL HISTORY 2003 PROCEDURE: IA CLSR RECTOVAGINAL FISTULA ABDOMINAL APPROACH; COMMENT: Dr. Díaz OTHER SURGICAL HISTORY 2016 Right PROCEDURE: [place] ICAPSULAR CATARACT XTRJ INSJ IO LENS PRSTH [...] Screening 05/26/2022 COVID-19 Vaccine ( season) 2024 Diabetes: Annual Urine Albumin-Creatinine Ratio (uACR) 05/21/2024 Diabetes: Blood Sugar Control Test (HGBA1C) 05/21/2024 Influenza Vaccine (Season Ended) 2025 Diabetes: Annual GFR (Glomerular Filtration Rate) 04/10/2025 [...] age to complete this topic Meningococcal B Vaccine Aged Out No l onger eligible based on patient's age to complete this topic RSV Immunization Patients Under 20 months Aged Out No longer eligible based on patient's age to complete this topic Varicella Vaccines Aged Out No longer eligible based on patient's age to complete this topic Procedures Procedure Name Priority Date/Time Associated Diagnosis Comments DX MAMMO INCL CAD BI Routine 07/31/2019 2:25 PM EST Unspecified lump in unspecified breast from Last 3 Months or Most Recently Relevant to Health Maintenance Results * DX MAMMO INCL CAD BI (07/31/2019 [...] Insurance MEDICARE [place]ICAID - [place] Care Teams Director Of Customer Service Relationship Specialty Start Date End Date Ivett Blas MD [address] [facility] [address] [place] [address] PCP - General 04/24/23
== END 2024-10-26 13:53 | disposition home or self-care (01) ==
LOC: HO.HPS 13:25
PROVIDERS: PCP Internal Medicine; Referring Provider Internal Medicine; Visit Provider Hospitalist
DX: R91.8 Other nonspecific abnormal finding of lung field (principal); J96.11 Chronic respiratory failure with hypoxia; J43.2 Centrilobular emphysema; K21.9 Gastro-esophageal reflux disease without esophagitis; K44.9 Diaphragmatic hernia without obstruction or gangrene; J18.9 Pneumonia, unspecified organism
CPT/HCPCS: 99214; G2211

== ENCOUNTER → 2024-10-26 13:24 | Outpatient (BNVA) | payer MEDICARE, MEDICAID, SELFPAY | PROVIDERS: PCP Internal Medicine; Referring Provider Internal Medicine; Visit Provider Hospitalist | DX: J96.11 Chronic respiratory failure with hypoxia (principal); J43.2 Centrilobular emphysema; R91.8 Other nonspecific abnormal finding of lung field; J18.9 Pneumonia, unspecified organism; K44.9 Diaphragmatic hernia without obstruction or gangrene; K21.9 Gastro-esophageal reflux disease without esophagitis; Z99.81 Dependence on supplemental oxygen | CPT/HCPCS: 99212 ==

== ENCOUNTER 2025-03-02 13:25 | Outpatient (AMB) | payer MEDICARE, MEDICAID, SELFPAY ==
[2025-03-02 13:27] VITALS: BP 130/60; PULSE 79; O2SAT 92; BMI 36.5
--- NOTE | 2025-03-02 13:27 | A.OFFVIS_ITS ---
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 She is O2 dependent. Today she came in and her pulse conserving device. We took her off and placed on room air 5 minutes. Quickly her oxygen decreased to 88%. She needs stay on her oxygen supplementation continuously. We will submit this re- certification to her current [employer], by [employer]. In meantime she has been followed with the lung cancer screening program. Over the summer 2018 she did have an episode of pneumonia that resulted in a brief hospitalization after failed outpatient therapy. Initially she received doxycycline. Then she was admitted to the hospital normal. Overall she feels a little better this time. The patient also had a CT scan of the chest that we personally reviewed. She appears to have some increased airspace disease and some bronchitis looking airways primarily on the right lung. This is likely residual to her recent infection back in February. In the meantime her pulmonary nodule on the right is measuring about 8 mm in size and appears to have filled in more than before when I compared to her CT scan from July 2018. Therefore, we'll closely follow this nodule and another 3 months. She stated do a CT scan of the chest ruling out pulmonary emboli. The did find a small but enlarging right breast nodule. She will be following up with this. We did look at her older CT scan from 2019 which demons. She did have a recent CT scan of the chest as a follow- up for her last 1 in June 2019 at [facility]. It appeared that she has a new patchy area of consolidation which is masslike in addition to some areas of ground-glass opacities. This is new when compared to her CT scan from [facility]. This is suggestive process possibly of an infectious process versus a noninfectious inflammatory process. Less likely malignancy although is in the differential. The patient is agreeable to undergo blood work and also bronchoscopy. Will try to schedule it as well as possible in order to properly treat with antibiotics as necessary for ongoing lower respiratory infection. 04/03/2023 the patient is here for pulmonary follow-up visit. She does complain of worsening dyspnea on exertion. Even at rest. She has been using the oxygen continuously. However, even with the oxygen even going up to 3 L she is still short of breath. She has significant air trapping that is likely contributing to her worsening dyspnea symptoms. The patient did have a CT scan of the chest which we personally reviewed. Significant improvement in the nodular densities that she had in the right lower lobe. Suggesting more infectious process. She continues on the azithromycin 3 times a week. She will continue this therapy for now. 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 The patient will need to undergo pulmonary function studies and highly recommend starting pulmonary rehabilitation again. The patient is very deconditioned and with significant air trapping worsening dynamic inspiratory capacity this will continue to get worse if she does not get active. She will continue with current respiratory therapy. Will follow-up in 4-6 months. 09/02/2023 the patient is here for a pulmonary follow-up visit. The patient continues to complain of dyspnea on exertion. Now is worse even at rest moderate severity. With activity she has had 2 in increase her oxygen to 4 L to keep up with her activities of daily living. She is still sleeping 3 L at nighttime. The patient was participating in the pulmonary rehab and she did find it helpful. But then she got sick with a viral syndrome she was not sure if she got sick there. She is finally better even after having COVID afterwards. Now she is ready to go back to rehab because she did like it she was feel like she was getting something not. The patient feels like her breathing is worse she took some prednisone a few days ago that helped her breathing. She is already on Trelegy. She has a hard time with a nebulizer with albuterol because it caused her palpitations and tremulousness. Explained to the patient that she does have some increased wheezing on examination although is difficult to treat based on the fact that she has a cardiac issues. Initially had did recommend the patient start ipratropium nebulizer therapy to use twice a day. However, the patient returned her nebulizer because she was not using it. Will have her undergo a blood test today she was supposed have blood gas before will go ahead and repeat the blood gas and see if she has any worsening of her hypercarbic respiratory failure. The patient will benefit from noninvasive ventilator to help her with respiratory failure. On the patient may be reluctant at this time. I will talk to the patient and also to the [employer] company to see if we can make it work for the patient. 05/05/2024 the patient is here for sick visit. She has had worsening respiratory symptoms for the last 2 weeks. She had call the office with worsening respiratory symptoms and we did prescribe her some prednisone and antibiotics. She did not complete the prednisone because she did not think they were helping but she did complain antibiotics. She feels like she has a cough. Difficult to expectorate. She has also noticed some increasing heaviness in the chest area. She has been desaturating more regularly now down to the mid 60s on the 3 L of oxygen at home. When she came in today with her conserving device at 3 L pulse she was down with a pulse ox in the 70s. We quickly switched over to 4 L continuous in her oxygen did improve briefly to around 86 87%. Then improved to 89%. But still unclear. Respiratory exam with diminished breath sounds no significant wheezing or rhonchi or crackles. She does have some lower extremity edema. In view of the worsening hypoxia and concerns for end-organ damage I did recommend she go to the ER. I did call the ER triage so they know about her. I do believe that ruling out thromboembolic disease will be important also considering blood work to better address her symptoms. She is reluctant to stay in the hospital but she is willing to be evaluated in the ER this time. 06/15/2024 the patient is here for a pulmonary follow-up visit. Overall she is feeling little better for respiratory status. She does have some nasal congestion her. She is going to see ENT doctor soon. In the meantime she has been using the oxygen with good effect. Trying to maintain a pulse ox within 88-94%. The patient does well with a conserving device. She does use it around 4 L pulse. Although she would like a portable oxygen concentrator to have better portability outside of the home. She has been getting her oxygen through [facility] for many years. Will go ahead and request a POC through them. We did do another walking oximetry. The patient did desaturate at rest and also with activity. She was able to maintain a pulse ox of 91% on 4 L pulse. Therefore request a POC from her current [employer] company at this time. In the meantime she is going to have additional imaging studies done mid June to follow-up with the pneumonia. The patient also has been using her respiratory therapy with good effect. 08/10/2024 the patient is here for pulmonary follow-up visit. Overall she is feeling better. She did start physical therapy and occupational therapy. She is looking to continue pulmonary rehabilitation. The POC has been very affecting beneficial. She has also been able to decrease the oxygen in her home since her oxygen levels have been much better. While decreasing her oxygen her headaches have gotten also better. Was all reassuring. The patient did have blood work done her CO2 is also been decreasing which is good. Will plan to repeat the blood work in 3-4 months. In the meantime she also had a chest x-ray in June. I personally reviewed. Appears that the airspace disease better although she still has some residual findings. Therefore have her get an x-ray sometime next month to make sure that it continues to improve. She continues use her respiratory therapy with good effect. She has been on the azithromycin 3 times a week for chronic bronchitis. Will see if we can wean her off at this time. We did talk about PD4 inhibitors both inhaled and also by mouth. She will consider these medications were very now she is doing well. 10/26/2024 the patient is here for pulmonary follow-up visit. Overall she is doing well. She is here for a follow-up routine visit. Denies any active respiratory issues. She is using her oxygen with good effect. She did have blood work done her CO2 was little elevated at 66 mmHg. She understands if she has chronic hypercarbic and hypoxic respiratory failure. I did offer her noninvasive ventilator with the patient does not feel comfortable using a mask over her face. She gets claustrophobic. Therefore something to consider. Which were rechecked the blood gas again in the fall to make sure that is not rising. She is working hard with physical therapy and occupational therapy to strengthen his lungs and a respiratory capacity and I do believe does helping overall. She did go back on the azithromycin 3 times a week since she felt lot better on it once he came off. The patient will need to get another EKG. She will either get her with cardiology or put in order here that she can get in the next month or 2. The patient follow-up in 4-6 months if she has any issues prior to this she will call for an earlier assessment. 03/02/2025 the patient is here for pulmonary follow-up visit. Overall she is doing well. She continues her respiratory therapy as prescribed. He has been affecting beneficial. The patient also has been using her oxygen. She sleeps with the oxygen all night. We have talked about noninvasive ventilation but she has a hard time thinking about wearing a mask. Her last blood gas did demonstrate a pCO2 of 66 mmHg. With a normal pH suggesting a chronic hypercarbic respiratory failure due to her COPD. Will go ahead and repeated blood work when she returns in 6-8 months to address the CO2. If the CO2 seems to be worsening will have to read address the question of noninvasive therapy. The patient also had a CT scan of the chest done at [facility] to the lung cancer screening program. They called her they want her to get another CAT scan in 3 months. I do not have the images but I will requested. Most likely she was consider rads 4 in order for him them to order a CAT scan in 3 months. Will follow-up with her once I get the images studies. She will continue with the current respiratory therapy. She has been doing well with PT and OT and pulmonary rehabilitation she is actually walking better and she is not using her scooter as much. [facility] Medical History Hiatal hernia GERD (gastroesophageal reflux disease) Lung mass TIA (transient ischemic attack) CAD (coronary artery disease) Pneumonia Chronic respiratory failure Pulmonary nodules Insomnia Centrilobular emphysema Family History Other HTN (hypertension) Social History Alcohol intake: never Comment: pt refuses bed alarm Patient Tobacco Use Status: Former Tobacco user Tobacco use type: Cigarette Years Smoked: 30 years service: No Review of Systems Const Denies chills, Denies fatigue, Denies fever(s), Denies weight gain and Denies weight loss ENT Denies dizziness, Denies lip swelling and Denies tongue swelling Card Denies chest pain, Denies leg edema, Denies lightheadedness, Denies palpitations, Reports dyspnea on exertion, Denies orthopnea and Denies other Resp Reports cough and Reports dyspnea on exertion GI Denies hematochezia and Denies change in stool character Musc Denies abnormal gait, Denies muscle weakness, Denies numbness, Denies radiating pain into limb and Denies tingling Neuro Denies abnormal gait, Denies dizziness, Denies numbness and Denies tingling Psych Denies no additional complaints Endo Denies fatigue and Denies palpitations Adonis/Lymph Denies easy bleeding and Denies lymphadenopathy Aller/Immun Denies lip swelling and Denies tongue swelling Physical Exam Vital Signs: Last Vital Signs Pulse 79 03/02/25 13:27 BP 130/60 03/02/25 13:27 Pulse Ox 92 03/02/25 13:27 Oxygen Delivery Method Nasal Cannula 03/02/25 13:27 Oxygen Flow Rate 2 03/02/25 13:27 BMI result Body Mass Index 36.5 Const General: alert Eyes Pupils: Equal, round and reactive pupils present Neck Neck: Yes normal visual inspection, Yes full ROM and Yes no lymphadenopathy Chest Chest palpation & inspection: normal inspection of the chest Resp Effort & Inspection: normal respiratory effort Auscultation: no crackles, no rales, no wheezes and diminished lung sounds Cardio Rate: regular rate Rhythm: regular rhythm Heart sounds: S1 normal heart sound present and S2 normal heart sound present GI Palpation (GI): Soft to palpation and nontender Auscultation: normal bowel sounds General: Yes no CVA tenderness Back/Spine/Pelvis Back: no CVA tenderness Skin General skin exam: rashes and/or lesions noted Neuro Cranial nerves: Yes Equal, round and reactive pupils present Extrem General: No clubbing, No cyanosis and Yes edema Assessment & Plan Assessment & Plan (1) Pulmonary nodules: Code(s): R91.8 - Other nonspecific abnormal finding of lung field Category: Medical (2) Chronic respiratory failure: Comment: O2 dependant Code(s): J96.10 - Chronic respiratory failure, unspecified whether with hypoxia or hypercapnia Category: Medical Qualifiers: Respiratory failure complication: hypoxia Qualified Code(s): J96.11 - Chronic respiratory failure with hypoxia (3) Centrilobular emphysema: Code(s): J43.2 - Centrilobular emphysema Category: Medical (4) GERD (gastroesophageal reflux disease): Code(s): K21.9 - Gastro-esophageal reflux disease without esophagitis Category: Medical Qualifiers: Esophagitis presence: without esophagitis Qualified Code(s): K21.9 - Gastro-esophageal reflux disease without esophagitis (5) Hiatal hernia: Code(s): K44.9 - Diaphragmatic hernia without obstruction or gangrene Category: Medical (6) Community acquired pneumonia: Code(s): J18.9 - Pneumonia, unspecified organism Category: Medical Qualifiers: Laterality: unspecified laterality Qualified Code(s): J18.9 - Pneumonia, unspecified organism Plan oxygen: POC for better portability outside of the home. Requesting oxymask to use with oxygen while sleepinL at rest and sleeping 4L/pulse with activity continue Trelegy 100mcg continue oxygen supplementation continue Azithromycin MWF,EKG continue reflux diet continue PPI Requesting LDCT images from [employer] Bloodwork, bloodgas prior to next visit continue Pulmonary rehab/PT/OT Follow-up in 4-6 month Orders: Orders Complete Blood Count Auto Diff Today J43.2 - Centrilobular emphysema Venous Blood Gas Today J43.2 - Centrilobular emphysema Basic Metabolic Panel Today J43.2 - Centrilobular emphysema Coding Level of Care Code Est Pt Level 4 (81724) Complex EM visit Add On G2211 Diagnoses Pulmonary nodules R91.8 Chronic respiratory failure with hypoxia J96.11 Respiratory failure complication: hypoxia Centrilobular emphysema J43.2 Gastroesophageal reflux disease without esophagitis K21.9 Esophagitis presence: without esophagitis Hiatal hernia K44.9 Community acquired pneumonia, unspecified laterality J18.9 Laterality: unspecified laterality Time Spent (min) 17
--- OUTSIDE RECORDS SUMMARY | 2025-03-02 17:20 | XMS_ITS | Clinical Summary ---
Author Organization [facility] Address [address] [address] Phone Care Team Providers Care Co Founder And Ceo Name Role Phone Ivett Blas MD Primary Care Provide r Allergies Active Allergy Reactions Criticality Noted Date Comments Cephalexin Anaphylaxis High 04/10/2024 Morphine Anaphylaxis High 04/10/2024 Medications atorvastatin (LIPITOR) 80 MG tablet Take 80 mg by mouth. 4 Active ascorbic acid (CHEWABLE VITAMIN C ORAL) Take by mouth. Active vitamins A,C,E-zinc-susana er (PRESERVISION AREDS) 4,296 mcg-226 mg-90 mg Cap Take 1 capsule by mouth 2 (two) times a day with meals. Active vitamin E acetate (VITAMIN E ORAL) Take by mouth. Activ e CALCIUM-VITAMIN D3 ORAL Take by mouth. Activ e azithromycin (ZITHROMAX) 250 MG tablet Take 1 tablet by mouth 3 (three) times a week. 4 Active bisoprolol (ZEBETA) 5 MG tablet Take 1 tablet by mouth every morning. 4 Active TRELEGY ELLIPTA 100-62.5-25 mcg inhalation powder Inhale 1 puff into the lungs daily. 4 Active levothyroxine (SYNTHROID, LEVOTHROID) 75 MCG tablet Take 0.5 tablets by mouth every morning. 4 Active lisinopril (PRINIVIL,ZESTR IL) 40 MG tablet TAKE 1 TABLET BY MOUTH DAILY AT NOON 4 Active nitroglycerin (NITROSTAT) 0.4 MG SL tablet PLEASE SEE ATTACHED FOR DETAILED DIRECTIONS 4 Active omeprazole (PRILOSEC) 40 MG capsule TAKE 1 CAPSULE BY MOUTH IN A.M. ON EMPTY STOMACH WAIT 30 MINUTES AND THEN EAT TO ACTIVATE MEDICATION 4 Active zolpidem (AMBIEN) 10 mg tablet nightly at bedtime as needed. 4 Active albuterol 90 mcg/actuation inhaler 2 puffs every 6 (six) hours as needed for wheezing. 5 Active semaglutide (RYBELSUS) 7 mg tabletIndicatio ns:Type 2 diabetes mellitus without complication, without long-term current use of insulin Take 1 tablet (7 mg total) by mouth daily before breakfast. 30 tablet 5 5 Active Active Problems Problem Noted Date Diagnosed Date CAD (coronary artery disease) 04/10/2024 Chronic respiratory failure with hypoxia 024 End stage COPD 04/10/2024 Hiatal hernia with GERD 04/10/2024 Hx of transient ischemic attack (TIA) 04/10/2024 Nephrolithiasis 04/10/2024 Hypertension 04/10/2024 Postablative hypothyroidism 04/10/2024 Assessment & Plan (11/27/2024 1:35 PM EDT): 74 y.o. woman with what sounds like a hx of LAZARO for hyperthyroidism years ago. Had been monitored off of rx until last year when levels indicated she had hypothyroidism, which appears to have been fairly mild. Will repeat labs today & adjust rx as appropriate to target a mid-upper TSH given age, co-morbidities. Advised to call/message us via portal if does not hear from us within a week or so. Assessment & Plan (04/10/2024 3:37 PM EDT): 73 y.o. woman with what sounds as if she had LAZARO for hyperthyroidism years ago. Had been monitored off of rx until recently when levels indicated she had hypothyroidism, which appears fairly mild. She has been taking rx consistently & appropriately. Will repeat labs today & adjust rx as appropriate to target a mid-upper TSH given age, co-morbidities. Advised to call/message us via portal if does not hear from us within a week or so. Family history of parathyroid cancer 04/10/2024 Assessment & Plan (04/10/2024 3:38 PM EDT): In daughter. There is a calcium in the chart from last year which was normal. Will repeat with labs. Family history of thyroid cancer 04/10/2024 Assessment & Plan (11/27/2024 1:36 PM EDT): Recent thyroid ultrasound w/o suspicious findings. Assessment & Plan (04/10/2024 3:38 PM EDT): Recent thyroid ultrasound w/o suspicious findings. Type 2 diabetes mellitus wit hout complication, without long-term current use of insulin Assessment & Plan (11/27/2024 1:38 PM EDT): Recent HbA1c higher. Discussed goals given age, co-morbidities. Discussed options to improve control including improving diet & activity and medication options. Given she is O2 dependent, would avoid metformin. She has no hx pancreatitis, family hx consistent with papillary CA/not medullary CA (rx w/ LAZARO). Will start low dose oral semaglutide if covered/affordable & titrate up as tolerated. Assessment & Plan (04/10/2024 3:40 PM EDT): Being monitored. Last HbA1c ~ 7.2%, which is reasonable given age, co- morbidities. Encounters Date Type Department Care Team Description 12/25/2024 Orders Only [facility] [address] [place] [address] [place] [phone] Sunita Sagastume MD Type 2 diabetes mellitus without complication, without long-term current use of insulin 12/25/2024 Refill [facility] [address] [place] [address] Sunita Sagastume MD Medication Refill from Last 3 Months Family History Medical History Relation Comments Cancer Daughter parathyroid Thyroid disease Maternal Aunt Thyroid cancer Mother Thyroid cancer Son Relation Status Comments Daughter Alive Maternal Aunt Mother Son Alive Social History Tobacco Use Types Packs/Day Years Used Date Smoking Tobacco: Former Cigarettes Smokeless Tobacco: Never Alcohol Use Standard Drinks/Week Comments Not Currently 0 (1 standard drink = 0.6 oz pur e alcohol) occ 1 Education Answer Date Recorded Are you interested in more education? Not on matteo e 10/08/2023 Are you concerned about learning? Not on file 10/08/2023 No 10/08/2023 No 10/08/2023 Digital Access Answer Date Recorded No 10/08/2023 No 10/08/2023 Reliable internet access at home? Not on file 10/08/2023 Device with a working camera? Not on file Comments Unknown Sex and Gender Information Value Date Recorded Sex Assigned at Female 04/06/2024 9:52 AM EDT Legal Sex Female 9:08 AM EDT Gender Identity Female 04/06/2024 9:52 AM EDT Sexual Orientation Straight 11/30/2024 12 :56 PM EDT Last Filed Vital Signs Vital Sign Reading Time Taken Comments Blood Pressure 140/70 11/26/2024 2:20 PM EDT Pulse 87 11/26/2024 2:20 PM EDT Temperature - - Respiratory Rate - - Oxygen Saturation 92% 11/26/2024 2:20 PM EDT Inhaled Oxygen Concentration - - Weight 86 kg (189 lb 9.6 oz) 11/26/2024 2:20 PM EDT Height 150.7 cm (4' 11.33 ) 04/10/2024 11:37 AM EDT Body Mass Index 37.87 04/10/2024 11:37 AM EDT Plan of Treatment Upcoming Encounters Date Type Department Care Team (Late st Contact Info) Description 03/03/2025 10:00 AM EDT Office Visit [facility] [address] [place] [address] Dora Oscar PA-C [address] [place] [phone] 04/14/2025 12:00 PM EDT Office Visit [facility] [address] [place] [address] Sunita Sagastume MD [address] [place] [phone] [email or web address] 09/01/2025 11:00 AM EDT Office Visit [facility] [address] [place] [phone] Sunita Sagastume MD [address] [place] [phone] [email or web address] Health Maintenance Due Date Last Done Comments Adult Td,Tdap Booster 1952 HEMOGLOBIN A1C 1952 DEPRESSION SCREENING 1964 SMOKING Hx and SMOKELESS TOBACCO SCREENING 1965 HEPATITIS C SCREENING 1970 PNEUMOCOCCAL VACCINES (50+ years) (1 of 2 - PCV) 09/14/1971 MAMMOGRAM 1992 COLOGUARD 1997 COLONOSCOPY 1997 COLORECTAL CANCER SCREENING 1997 FIT TEST 1997 FOBT 1997 SIGMOIDOSCOPY 1997 VIRTUAL COLONOSCOPY 1997 ZOSTER VACCINES (1 of 2) 2002 RSV VACCINE (1 - Risk 60-74 years 1-dose series) 2012 OSTEOPOROSIS SCREENING INITI AL (ONE-TIME) 2017 DIABETIC EYE EXAM 04/10/2024 INFLUENZA VACCINE (#1) 2025 COVID-19 VACCINE (1 - 2023-2 5 season) 2025 CREATININE LEVEL 04/10/2025 04/10/2024 POTASSIUM LEVEL 04/10/2025 04/10/2024 BLOOD PRESSURE 05/28/2025 11/26/2024 TSH LEVEL 11/26/2025 11/26/2024, 04/10/2024 HEPATITIS A VACCINES Aged Out No long er eligible based on patient's age to complete this topic HIB VACCINES Aged Out No longer eligi ble based on patient's age to complete this topic MENINGOCOCCAL VACCINES (ACWY) Aged Out No longer eligible based on patient's age to complete this topic MENINGOCOCCAL VACCINES (B) Aged Out N o longer eligible based on patient's age to complete this topic Medical Devices Not on file Procedures Procedure Name Priority Date/Time Associated Diagnosis Comments TSH WITH REFLEX Routine 11/26/2024 3:18 PM EDT Postablative hypothyroidism COMPREHENSIVE METABOLIC PANEL Routine 04/10/2024 12:46 PM EDT Family history of parathyroid cancer from Last 3 Months or Most Recently Relevant to Health Maintenance Results * TSH with reflex (11/26/2024 3:18 PM EDT) TSH 1.96 0.27 - 4.20 uIU/mL [facility] Blood 11/26/2024 3:18 PM EDT 11/26/2024 3:20 PM EDT Sunita Sagastume MD LAB BLOOD ORDERABLES F inal Result [address] [address] * (ABNORMAL) Comprehensive metabolic panel (04/10/2024 12:46 PM EDT) SODIUM 140 133 - 146 mmol/L [facility] POTASSIUM 5.2(H) 3.3 - 5.1 mmol/L [facility] Comment:Specimen slightly he molyzed, result may be falsely elevated. CHLORIDE 95(L) 96 - 108 mmol/L [facility] CO2 22 21 - 35 mmol/L [facility] BUN 21(H) 6 - 19 mg/dL [facility] CREATININE 0.50 0.5 - 1.5 mg/dL [facility] GLUCOSE 201(H) 70 - 99 mg/dL [facility] ALBUMIN 3.9 3.9 - 4.8 g/dL [facility] TOTAL PROTEIN 6.7 6.5 - 8.0 g/dL [facility] CALCIUM 9.3 8.4 - 10.3 mg/dL [facility] ALKALINE PHOSPHATASE 125(H) 39 - 117 U/L [facility] TOTAL BILIRUBIN 0.4 0.0 - 1.2 mg/dL [facility] AST 9 0 - 37 U/L [facility] ALT 10 0 - 40 U/L [facility] GLOBULIN 2.8 1 - 4.8 g/dL [facility] EGFR 100 >59 mL/min/1.7 3m2 [facility] Comment:Estimated glomerular filtration rate calculated using the CKD-EPI refit equation. ANION GAP 28(H) 10 - 20 mmol/L [facility] Blood 04/10/2024 12:4 6 PM EDT 04/10/2024 1:02 PM EDT Sunita Sagastume MD LAB BLOOD ORDERABLES F inal Result [facility] [address] [place] [address] from Last 3 Months or Most Recently Relevant to Health Maintenance Insurance MEDIC[place] A [place] [id number] [facility] MEDICARE PART A & [place] [facility] & B [facility] Care Teams Co Founder And Ceo Relationship Specialty Start Date End Date Ivett Blas MD [address] [place] [address] [address] [place] [address] PCP - General Internal Medicine 09/26/23 Additional Source Comments The information contained in this document represents components of the legal health record. It is not the complete legal health record.[facility]
--- OUTSIDE RECORDS SUMMARY | 2025-03-02 17:20 | XMS_ITS | Clinical Summary ---
Author Organization [facility] Address [address] [place] [address] Phone Care Team Providers Care Speech Scientist Name Role Phone Ivett Blas MD Primary Care Provider Allergies No known active allergies Medications omeprazole (PriLOSEC) [address] capsule TAKE 1 CAPSULE BY MOUTH IN A.M. ON EMPTY STOMACH WAIT 30 MINUTES AND THEN EAT TO ACTIVATE MEDICATION 90 capsule 3 Active Encounters Date Type Department Care Team Description 01/21/2025 Telephone Lung Screening Program - [address] [phone] Dora Maloney [place] 01/14/2025 11:36 AM EDT - 01/14/2025 11:59 PM EDT Hospital Encounter [facility] CT Scan [address] [place] [address] Former smoker; Encounter for screening for lung cancer Discharge Disposition: Home or Self Care 12/29/2024 Telephone Lung Screening Program - [address] [phone] Latoya Caballero MA from Last 3 Months Surgical History Surgery Date Site/Laterality Comments SECTION PROCEDURE: OR DELIVERY ONLY; COMMENT: x1 OTHER SURGICAL HISTORY PROCEDURE: OR LIG/TRNSXJ FLP TUBE ABDL/VAG APPR UNI/BI TONSILLECTOMY ADENOIDECTOMY, BILATERAL MYRINGOTOMY AND TUBES PROCEDURE: OR TONSILLECTOMY & ADENOIDECTOMY <AGE 14 OTHER SURGICAL HISTORY 2003 PROCEDURE: OR CLSR RECTOVAGINAL FISTULA ABDOMINAL APPROACH; COMMENT: Dr. Díaz OTHER SURGICAL HISTORY 2016 Right PROCEDURE: OR ICAPSULAR CATARACT XTRJ INSJ IO LENS PRSTH [...] 05/28/2023 9:29 AM EST Plan of Treatment Upcoming Encounters Date Type Department Care Team (Late st Contact Info) Description 05/03/2025 2:00 PM EST Appointment [facility] CT Scan [address] [place] [phone] Health Maintenance Due Date Last Done Comments Diabetes: Annual Foot Exam 1962 Diabetes: Annual Retina Eye Exam 1962 Zoster Vaccines (1 of 2) 2002 RSV Immunization Adult Patients (1 - Risk 60-74 years 1-dose series) 2012 DTaP,Tdap,and Td Vaccines (2 - Td or Tdap) 07/24/2016 07/24/2006 Pneumococcal Vaccine: 50+ Years (2 of 2 - PPSV23) 08/21/2019 06/26/2019 Breast Cancer Screening 07/31/2021 07/31/19 20, 06/27/2018, 05/28/2017, Additional history exists Cholesterol Screening (Lipid Panel) 05/26/2022 Colorectal Cancer Screening: Stool Based Tests (FOBT/FIT) 05/26/2022 Falls Risk Assessment 05/26/2022 Hepatitis C Screening 05/26/2022 Medicare Annual Wellness Visit 05/26/2022 Osteoporosis Screening (Bone Density Screening) 05/26/2022 Social Influencers of Health Screening 05/26/2022 Diabetes: Annual Urine Albumin-Creatinine Ratio (uACR) 05/21/2024 Diabetes: Blood Sugar Control Test (HGBA1C) 05/21/2024 Depression Screening 06/17/2024 COVID-19 Vaccine ( season) 2025 Influenza Vaccine (#1) 2025 06/26/2019 Diabetes: Annual GFR (Glomerular Filtration Rate) 04/10/2025 [...] Name Priority Date/Time Associated Diagnosis Comments CT LUNG SCREENING Routine 01/14/2025 12: 07 PM EDT Former smoker Encounter for screening for lung cancer DX MAMMO INCL CAD BI Routine 07/31/2019 2:25 PM EST Unspecified lump in unspecified breast from Last 3 Months or Most Recently Relevant to Health Maintenance Results * CT Lung Screening (01/14/2025 12:07 PM EDT) Anatomical Region Laterality Modality Chest Computed Tomogra phy 01/20/2025 3:05 PM EDT Impressions 01/20/2025 3:30 PM EDT Spiculated left lower lobe opacity presumably infectious inflammatory. ASSESSMENT: LungRADS Category 0: Incomplete. Findings suggestive of an infectious/inflammatory process. 1-3 month LDCT. Complete Lung RADS description including probabilities of malignancy and prevalence can be found at: [employer] Committee on Lung-RADS?. Lung- RADS Assessment Categories 2021. Available at [email or web address]. -------- FINAL REPORT -------- Dictated By: Speedy Rondon Dictated Date: 01/20/2025 15:05 ET Assigned Physician: Speedy Rondon Reviewed and Electronically Signed By: Speedy Rondon Signed Date: 01/20/2025 15:30 ET Workstation ID: [id number] Transcribed By: Self Edit Transcribed Date: 01/20/2025 15:05 ET Narrative 01/20/2025 3:30 PM EDT History: 74 year-old 39 pack-year former smoker, asymptomatic, for lung cancer screening. 14 years since stopped Comparison: 12/14 07/10 Technique: Helical volumetric imaging of the thorax was performed, using low- dose technique, without IV contrast. DLP: 167 mGy/cm CT dose reduction technique utilized with one or more of the following: Automated exposure control and/or adjustment of the mA and/or kV according to patient size and/or use of iterative reconstruction technique. Findings: Lungs: New spiculated consolidation in the superior aspect of the left lower lobe measuring 1.1 cm. Stable scattered nodules throughout the lungs, for reference there is a stable 5 mm nodule in the peripheral right lower lobe. Pleura: There are no pleural effusions. No calcified or noncalcified pleural plaques. Mediastinum: No mass. Vascular/coronary calcifications. Upper Abdomen: This study was performed without contrast and with lower than standard dose. These factors reduce the sensitivity for detection of small lesions in the upper abdomen. Osseous Structures: No suspicious osseous abnormalities. us Jose Yadav MD IMG CT PROCEDURES Final Result * DX MAMMO INCL CAD BI (07/31/2019 [...] with the aid of computer-aided detection. Comparison is made with 06/27/2018 and as far back as 04/30/2013. Correlation made with the chest CT 06/24/2019. Breast parenchyma is predominantly fatty replaced. Two ovoid circumscribed nodules measuring 1 cm in the right breast are stable as far back as 04/30/2013. These are located in the inner breast just below the level of the nipple and in the slightly lower and slightly outer breast. The medial nodule corresponds with the finding on CT. No new suspicious mass, architectural distortion, or suspicious calcifications. Impression: The right breast nodule on the outside chest CT corresponds with a chronic finding on mammography which is stable as far back as 2012. No mammographic evidence of malignancy in either breast. [...] Insurance MEDICARE MEDICAID - [place] Care Teams Speech Scientist Relationship Specialty Start Date End Date Ivett Blas MD [address] [place] [address] [address] [place] [phone] PCP - General 04/24/23
== END 2025-03-02 13:57 | disposition home or self-care (01) ==
LOC: HO.HPS 13:25
PROVIDERS: PCP Internal Medicine; Visit Provider Hospitalist
DX: R91.8 Other nonspecific abnormal finding of lung field (principal); J96.11 Chronic respiratory failure with hypoxia; J43.2 Centrilobular emphysema; K21.9 Gastro-esophageal reflux disease without esophagitis; K44.9 Diaphragmatic hernia without obstruction or gangrene; J18.9 Pneumonia, unspecified organism
CPT/HCPCS: 99214; G2211

== ENCOUNTER → 2025-03-02 13:25 | Outpatient (BNVA) | payer MEDICARE, MEDICAID, SELFPAY | PROVIDERS: PCP Internal Medicine; Visit Provider Hospitalist | DX: J44.9 Chronic obstructive pulmonary disease, unspecified (principal); J96.11 Chronic respiratory failure with hypoxia; J43.2 Centrilobular emphysema; R91.8 Other nonspecific abnormal finding of lung field; K21.9 Gastro-esophageal reflux disease without esophagitis; K44.9 Diaphragmatic hernia without obstruction or gangrene; J18.9 Pneumonia, unspecified organism | CPT/HCPCS: 99212 ==